=== PATIENT | male | born 1945 | race Caucasian/White ===

== ENCOUNTER → 2024-10-20 | Outpatient (CLI) | payer MEDICARE, SELFPAY ==
[2024-10-20 11:32] LABS: Prostate Specific Antigen 9.61 ng/mL (0-4.00)
== END | disposition home or self-care (01) ==
LOC: COPL 10:07
PROVIDERS: PCP Family Medicine; Referring Provider Urology; Visit Provider Urology
DX: C61 Malignant neoplasm of prostate (principal)
CPT/HCPCS: 36415; 84153

== ENCOUNTER → 2024-10-26 | Outpatient (BNVA) | payer MEDICARE, SELFPAY | END | disposition home or self-care (01) | PROVIDERS: PCP Family Medicine; Referring Provider Family Medicine; Visit Provider Urology | DX: N40.1 Benign prostatic hyperplasia with lower urinary tract symptoms (principal); N13.8 Other obstructive and reflux uropathy; C61 Malignant neoplasm of prostate; I12.9 Hypertensive chronic kidney disease with stage 1 through stage 4 chronic kidney disease, or unspecified chronic kidney disease; E11.22 Type 2 diabetes mellitus with diabetic chronic kidney disease; N18.30 Chronic kidney disease, stage 3 unspecified; I48.91 Unspecified atrial fibrillation; Z80.42 Family history of malignant neoplasm of prostate; E66.9 Obesity, unspecified; Z68.28 Body mass index [BMI] 28.0-28.9, adult; E78.00 Pure hypercholesterolemia, unspecified | CPT/HCPCS: 81003; 99212; G0463 ==

== ENCOUNTER → 2025-04-27 | Outpatient (CLI) | payer MEDICARE, SELFPAY ==
[2025-04-27 11:56] LABS: Prostate Specific Antigen 12.56 ng/mL (0-4.00)
== END | disposition home or self-care (01) ==
LOC: COPL 10:49
PROVIDERS: PCP Family Medicine; Referring Provider Urology; Visit Provider Urology
DX: C61 Malignant neoplasm of prostate (principal)
CPT/HCPCS: 36415; 84153

== ENCOUNTER → 2025-05-21 | Outpatient (BNVA) | payer MEDICARE, SELFPAY | END | disposition home or self-care (01) | PROVIDERS: PCP Family Medicine; Referring Provider Family Medicine; Visit Provider Urology | DX: N40.1 Benign prostatic hyperplasia with lower urinary tract symptoms (principal); N13.8 Other obstructive and reflux uropathy; C61 Malignant neoplasm of prostate; I10 Essential (primary) hypertension; E11.9 Type 2 diabetes mellitus without complications; I25.10 Atherosclerotic heart disease of native coronary artery without angina pectoris; Z80.42 Family history of malignant neoplasm of prostate; Z86.73 Personal history of transient ischemic attack (TIA), and cerebral infarction without residual deficits | CPT/HCPCS: 81003; 99212; G0463 ==

== ENCOUNTER 2025-05-22 05:52 | Emergency (ER) | payer MEDICARE, SELFPAY ==
[2025-05-22] VITALS (7 sets, daily range): BP systolic 126–177; BP diastolic 63–90; PULSE 74–100; RESP 19–96; TEMP 36.4–36.7; O2SAT 95–98; BMI 29.7; BMI 29.0
--- NOTE | 2025-05-22 06:39 | PD.EDWEAK ---
ED Weakness RME/HPI General Chief complaint: Weakness Stated complaint: WEAKNESS Time Seen by Provider: 05/22/25 06:29 Arrival date/time: 05/22/25 05:52 RME / HPI RME / HPI Narrative: DR. NELSON MAIN ED EVALUATION: 79 y/o male with Hx of TIA, Prostate CA, BPH, Type II DM, Atrial fibrilation, HTN, and Hypercholesterolemia presents to ED c/o weakness, balance issues, and difficulty finding his words s/p waking up at 0300 hours. States he feels foggy. Denies chest pain, shortness of breath, abdominal pain, dysuria, hematuria, bloody or tarry stool. Also denies any recent travel or sick contacts. Denies allergies to medications. Patient is taking Warfarin, Amlodipine, Tramadol, and Cialis. Denies any surgical history, but states that he will be undergoing prostectomy at some point later this year. No otgher concerns or complaints expressed at this time. Related Data Home Medications ?Medication ?Instructions ?Recorded ?Confirmed metformin 500 mg tablet 500 mg PO BID 08/29/18 05/21/25 levothyroxine 25 mcg capsule 25 mcg PO QDAY 07/16/19 05/21/25 lisinopril 20 mg tablet 20 mg PO QDAY 07/16/19 05/21/25 tamsulosin 0.4 mg capsule 0.4 mg PO QHS 11/01/20 05/21/25 amiodarone 200 mg tablet 200 mg PO QDAY 04/21/21 05/21/25 tadalafil 5 mg tablet (Cialis) 5 mg PO QDAY 05/08/22 05/21/25 warfarin 5 mg tablet 5 mg PO QMWF 04/05/23 05/21/25 Allergies Allergy/AdvReac Type Severity Reaction Status Date / Time No Known Allergies Allergy Verified 05/21/25 08:56 Review of Systems Review of Systems Systems Reviewed: All systems reviewed, normal except as documented Past Medical History Past Medical History NEUROLOGIC: Positive Neurological Disorders (TIA 2018) and Transient Ischemic Attacks (TIA) CARDIAC: Positive Atrial Fibrillation, Hypercholesterolemia and Hypertension GENITOURINARY: Positive Prostate Cancer and Benign Prostatic Hyperplasia MUSCULOSKELETAL: Positive Arthritis (Both feet) ENDOCRINE: Positive Endocrine Disorders and Diabetes Mellitus Type 2 OTHER HISTORY: Positive Prostate Cancer Family History FAMILY HISTORY: Positive Family Cardiac Disorders and Family Cancer Social History SMOKING STATUS: Former smoker ED Exam Narrative Physical exam: GEN. APPEARANCE: The patient is alert awake oriented X-3 in no distress, lying down comfortably, does not look ill/toxic. Patient has good eye contact. Patient is cooperative. VITALS: All vitals were reviewed and the pulse ox is 98% on room air which is normal according to my interpretation. HEENT: Normocephalic, atraumatic. Pupils are equal and reactive. Oral mucosa is moist. Patent Nares NECK: Supple, nontender, no thyromegaly, no meningismus, no JVD CHEST: Symmetrical, atraumatic, and with equal expansion , Nontender on palpation no deformity and no crepitus. CARDIOVASCULAR: Heart regular rhythm no murmur or gallop rub or extra beats. LUNGS: Clear to auscultation bilaterally with symmetrical chest rise. No laboring tachypnea or wheezing. No intercostal subcostal retraction. No rales and no rhonchi. ABDOMEN: Soft, flat, nontender to palpation, no guarding or rebound tenderness. There are no abnormal masses palpated. Active and normal bowel sounds. EXTREMITIES: Nontender. No edema. No cyanosis. Patient is able to move all 4 extremities well, with full ROM and good CSM. SKIN: Warm and dry, no jaundice or rashes noted. NEURO: Patient is BEAL x 4, Cranial nerves II through XII grossly intact. There is no focal neurologic deficits noted. GCS is 15, PNS and WAIST PRESSER appear grossly intact. PSYCHIATRIC: Patient is in normal mood and affect. Course Quality Measures Suspected type of Stroke: Unknown at this time Last known well (date): 05/22/25 Last know well: unknown (Yesterday evening) Tenecteplase given: Reason(s) TPA not given: Outside the time window not given stroke Orders Category Date Time Status Bedside Blood Glucose NOW Care 05/22/25 06:40 Active Bedside COVID-19 Antigen Test NOW Care 05/22/25 06:41 Active Bedside Influenza A&B Antigen Test NOW Care 05/22/25 06:41 Completed Vision Specialist NOW Care 05/22/25 06:40 Active Continuous Pulse Oximetry NOW Care 05/22/25 06:40 Completed EKG (ED ONLY) *Do not use* NOW Care 05/22/25 06:40 Completed Head [HOB Elevated] .PRN Care 05/22/25 07:04 Active In and Out Catheter NEEDED Care 05/22/25 06:40 Active Insert IV NOW Care 05/22/25 06:40 Completed NIH Stroke Scale now Care 05/22/25 06:40 Active NPO NOW Care 05/22/25 06:40 Active Nurse Swallow Screen x1 Care 05/22/25 06:40 Active Consult to Neurology / Tele-Neurology Stat Cons 05/22/25 06:40 Active Referral - Rn [facility] Stat Cons 05/22/25 07:[address] angio stroke protocol Stat Exams 05/22/25 06:[address] stroke protocol Stat Exams 05/22/25 06:40 Completed EKG (ED Only) Stat Exams 05/22/25 06:40 Draft XR chest 1V portable Stat Exams 05/22/25 06:40 Completed CBC Stat Lab 05/22/25 06:30 Completed CK [Creatine Kinase] Stat Lab 05/22/25 06:30 Completed Comprehensive Metabolic Panel Stat Lab 05/22/25 06:30 Completed Drug Screen,Urine Stat Lab 05/22/25 06:40 Ordered Magnesium Stat Lab 05/22/25 06:30 Completed Partial Thromboplastin Time Stat Lab 05/22/25 06:30 Received Prothrombin Time with INR Stat Lab 05/22/25 06:30 Received Troponin I Stat Lab 05/22/25 06:30 Completed Urinalysis, C/S if Indicated Stat Lab 05/22/25 06:40 Ordered Nicardipine/Ns 20Mg Ivpb [Cardene Ivpb] Med 05/22/25 07:07 Active 20 mg in 200 ml IV 5 mg/hr Phytonadione Inj [Vitamin K Inj] Med 05/22/25 07:05 Discontinued 10 mg IM X1 ONE Phytonadione Inj [Vitamin K Inj] 10 mg Med 05/22/25 07:15 Discontinued Sodium Chloride 0.9% [Ns] 50 ml IV X1 Prothrombin Complex Concent [Kcentra IV] 2,000 unit Med 05/22/25 07:30 Active Sterile Water 100 ml Container,Empty 150 ml [Empty Container Bag 150 ml] 1 bag IV X1 Tranexamic Acid 1,000 mg Ivpb [Tranexamic Acid Ivpb] Med 05/22/25 07:15 Discontinued 1,000 mg in 100 ml IV X1 Tranexamic Acid Inj Med 05/22/25 07:09 Discontinued 1 mg IV STAT STA Oxygen Delivery NOW RT 05/22/25 06:40 Active Vital Signs Vital signs: Vital Signs Temperature 97.5 F 05/22/25 05:55 Pulse Rate 89 05/22/25 05:55 Respiratory Rate 19 05/22/25 05:55 Blood Pressure 164/84 H 05/22/25 05:55 Pulse Oximetry (%) 96 05/22/25 05:55 Oxygen Delivery Method Room Air 05/22/25 05:55 Weakness MDM Narrative MDM Narrative:: Scribe Attestation: I, Sofía Dunn, am scribing for and in the presence of Dr. Nelson. Provider Notation: Although this document has been carefully reviewed, there may still be some phonetic and other typographical errors. These errors are purely grammatical due to imperfections in the software program and should not be construed in any way to compromise the substance of the patient's medical care during this visit. Patient is a 71-year-old male with medical history notable for hypertension, atrial fibrillation, prostate cancer is in the emergency department with concerns for feeling confused, having difficulty finding his words and feeling dizzy and weak. Vital signs and exam as listed. Concern for stroke, last known well last night in the evening approximately 8 PM. Also concern for ACS, arrythmia, metabolic derrangement, among others. Patient was stroke alerted. Was taken to the CT scanner. CT with evidence of basal ganglia hemorrhage approximately 13 mm. Immediately consulted pharmacy for reversal of patient's coagulopathy given that he is on warfarin. Ordered Kcentra, vitamin K, TXA. Ordered medication for blood pressure control, titratable for systolic blood pressure goal of 140. Elevate head of bed. Serial neuroexams. Patient continues to be GCS 15, with no changes to his neuroexam will initiate transfer for higher level of care. Discussed case with [facility] neurosurgeon Dr. Luz, no emergent neurosurgical need at this time. Recommends that we discussed case with ICU and neurology. Discussed case with Dr. Gonzalez, agrees with management, accepts patient for transfer ED to ED. Updated patient and his , in agreement treatment plan, grateful for today's care. I spent 60 minutes of critical care time with this patient not including reportable procedures. There was an acute impairment of an organ system with a high probability of imminent or life threatening deterioration in the patient's condition. Interventions and changes required in the course of therapy are located in the chart. Time involved was spent in direct patient care, reviewing ancillary data, old records, consulting with decision makers, EMS, other doctors, giving orders and documenting. Patient data External records reviewed:: [facility] previous records (Reviewed most recent ED records from 01/26/22. Patient was seen for Rupture of left tympanic membrane.) Clinical information provided by:: patient Social determinants that could affect healthcare access:: none Patient has the following chronic illnesses:: Atrial Fibrillation, Hypercholesterolemia, Hypertension, Prostate Cancer and Benign Prostatic Hyperplasia, Arthritis, Diabetes Mellitus Type 2 How is presenting disease/condition affected by chronic disease/condition?: exacerbated by Evaluation data The following diagnostics were reviewed and interpreted by me:: lab results, radiology exam(s) and EKG tracing(s) (EKG done at 0715, 91 bpm, atrial fibrillation, normal QT, non-specific T-wave changes, not a cardiac alert. - Interpreted by Dr. Roxana Nelson.) Lab and/or radiology exams considered but not ordered:: None Interpretation Summary: RADIOLOGY Head/Brain CT: Findings: 13 mm acute hemorrhage in the left basal ganglia. Ventricles are not enlarged. No midline shift. Fourth ventricle midline. Cranial vault intact Impression: 13 mm acute hemorrhage left basal ganglia Chest X-Ray: Findings: Mild to moderate enlargement left ventricle. Mild elevation right hemidiaphragm. No pneumonia or pulmonary edema. Prominent osteopenia Impression: No pneumonia or pulmonary edema Medications / Prescriptions Medications or Prescriptions considered but not ordered:: None Medication administrations:: Medication Administration History Nicardipine/Sodium Chloride (Cardene Ivpb) 20 mg in 200 mls @ 50 mls/hr IV .Q4H PRN; Protocol PRN Reason: PER PROTOCOL Stop: 06/21/25 07:06 Last Admin: 05/22/25 07:24 Dose: 5 mg/hr, 50 mls/hr Documented By: VL Prothrombin Complex Concent ( Human) 2,000 unit/ Sterile Water 100 ml/ IV Miscellaneous Supplies 100 mls @ 400 mls/hr IV X1 ONE Stop: 05/22/25 07:44 Discontinued Medications Phytonadione 10 mg/ Sodium (Chloride) 51 mls @ 153 mls/hr IV X1 ONE; Protocol Stop: 05/22/25 07:34 Last Admin: 05/22/25 07:36 Dose: 153 mls/hr Documented By: VL Tranexamic Acid (Tranexamic Acid Ivpb) 1,000 mg in 100 mls @ 400 mls/hr IV X1 ONE Stop: 05/22/25 07:29 Last Admin: 05/22/25 07:32 Dose: 400 mls/hr Documented By: VL Phytonadione (Phytonadione Inj 10 Mg/Ml Amp) 10 mg IM X1 ONE Stop: 05/22/25 07:06 Tranexamic Acid (Tranexamic Acid Inj 1,000 Mg/10 Ml Vial) 1 mg IV STAT STA Stop: 05/22/25 07:10 See above if any. Consultations Consultation(s) initiated? (list below): Yes Consultation #1 (Physician, Specialty, Details): made aware of the patient?s HPI, PMHx, lab and/or radiology results. Discussed treatment plan. Recommends admission to ICU. We will consult transfer to facility with neurosurgical capabilties. Time: 07:12 Consultation #2 (Physician, Specialty, Details): Dr. Luz, Neurosurgeon at [facility], made aware of the patient?s HPI, PMHx, lab and/or radiology results. Treatment plan was discussed. Dr. Luz does not believe patient needs emergent neurological intervention, but recommends we speak with ICU at [facility]. We will be connected with Neurology. Dr. Gonzalez, neurology specialist, will accept patient at [facility] for transfer, ED to ED. Time: 07:25 Diagnosis Weakness Differential Diagnosis: acute myocardial infarction, anemia, hypoglycemia, hypothyroidism, rhabdomyolysis, sepsis, dehydration and other (TIA, CVA) Most likely diagnosis given after review of the tests above:: Intracranial hemorrhage Admission Indicated Admission indicated?: not indicated Explain why admission is indicated or not indicated:: Transfer to facility with neurosurgical capabilities. Admission Request Was there a request for admission?: No Disposition Plan Disposition Plan: Transfer Discharge Plan Plan Patient Disposition: [facility] Care [facility] Facility Pt Being Transferred to: [facility] Service Needed for Transfer: Neurology Patient condition on transfer: Stable Prescriptions/Referrals Prescriptions/Med Rec: No Action amiodarone 200 mg tablet 200 mg PO QDAY warfarin 5 mg tablet 5 mg PO QMWF lisinopril 20 mg tablet 20 mg PO QDAY levothyroxine 25 mcg capsule 25 mcg PO QDAY tamsulosin 0.4 mg capsule 0.4 mg PO QHS tadalafil [Cialis] 5 mg tablet 5 mg PO QDAY metformin 500 mg Tablet 500 mg PO BID Problem List Clinical Impression: Intracranial hemorrhage Patient/Caregiver Discharge Instructions Print Language: Divehi Stand Alone Forms: [facility]va Award Info., Patient Portal Info Letter
--- NOTE | 2025-05-22 06:40 | XR_ITS ---
Examination: CT brain head without contrast. 2-D sagittal coronal reconstructions Date and time of exam:May 22 thousand 25, 0700 hrs. Indications: Stroke alert, onset focal neurologic deficit including bilaterally leg weakness beginning 3 hours ago CTDI: vol (mGy):53.1 DLP: (mGycm):1075 Technique: Multiple CT axial sections of the brain have been obtained, 5 mm slice thickness. Contrast has not been administered. 2-D sagittal, coronal reconstructions have been obtained Low dose protocols were performed. One or more of the following dose reduction techniques were used; automated exposure control, adjustment of the mA and/or KV according to patient size, use of iterative reconstruction technique. Findings: 13 mm acute hemorrhage in the left basal ganglia. Ventricles are not enlarged. No midline shift. Fourth ventricle midline. Cranial vault intact Impression: 13 mm acute hemorrhage left basal ganglia
--- NOTE | 2025-05-22 06:40 | XR_ITS ---
Examination: AP chest single view Technique one AP portable upright chest single view Date and time: May 22, 2025 0645 hrs. Indications: Chest pain Breath today. Findings: Mild to moderate enlargement left ventricle. Mild elevation right hemidiaphragm. No pneumonia or pulmonary edema. Prominent osteopenia Impression: No pneumonia or pulmonary edema
--- NOTE | 2025-05-22 06:40 | EKG_ITS ---
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: : 1945 Requested By: Roxana Turk Order Number: [id number] Reading MD: Roxana Turk Measurements Intervals [place] Rate: 91 P: 37 LA: 229 QRS: -51 QRSD: 116 T: 92 QT: 361 QTc: 446 Interpretive Statements SINUS RHYTHM WITH FIRST DEGREE AV BLOCK LEFT ANTERIOR FASCICULAR BLOCK [QRS AXIS <= -45, QR IN I, RS IN II] VOLTAGE CRITERIA FOR LVH [MEETS CRITERIA IN ONE OF: R(aVL), S(V1), R(V5), R(V5/V6)+S(V1)] POSSIBLE ANTEROSEPTAL MYOCARDIAL INFARCTION , OF INDETERMINATE AGE [30 ms Q WAVE IN V1-V4] MODERATE T-WAVE ABNORMALITY, CONSIDER LATERAL ISCHEMIA [-0.1+ mV T-WAVE IN I/aVL/V5/V6] Compared to ECG 08/30/2018 14:23:26 First degree AV block now present Left anterior fascicular block now present Atrial fibrillation no longer present Left-axis deviation no longer present Myocardial infarct finding still present T-wave abnormality still present Possible ischemia still present /store/S0/[id number]/ecg/[id number].pdf
[2025-05-22 07:07] LABS: Basophils # (Auto) 0.1 Thou/mm3 (0.0-0.2); Basophils % (Auto) 1 % (0-2.5); Eosinophils # (Auto) 0.3 Thou/mm3 (0.0-0.5); Eosinophils % (Auto) 3 % (0-10); Hematocrit 45.8 % (41.0-53.0); Hemoglobin 15.3 g/dL (13.5-16.0); Immature Granulocytes Auto 0.03 Thou/mm3 (0.00-0.00); Lymphocytes # (Auto) 1.6 Thou/mm3 (1.0-4.8); Lymphocytes % (Auto) 17 % (10-50); Mean Corpuscular HGB Conc 33.4 g/dl (31.0-37.0); Mean Corpuscular Hemoglobin 27.7 pg (25.0-35.0); Mean Corpuscular Volume 83 fL (80-100); Monocytes # (Auto) 0.8 Thou/mm3 (0.0-0.8); Monocytes % (Auto) 8 % (0-12); Neutrophils # (Auto) 7.0 Thou/mm3 (1.8-7.7); Neutrophils % (Auto) 72 % (37-80); Nucleated Red Blood Cell # 0.00 Thou/mm3 (0.00-0.00); Nucleated Red Blood Cell % 0 /100 WBC (0); Platelet Count 291 Thou/mm3 (140-440); RDW Standard Deviation 43.6 fL (35.1-43.9); Red Blood Count 5.52 Miln/mm3 (4.50-5.90); White Blood Count 9.8 Thou/mm3 (3.8-10.6)
--- NOTE | 2025-05-22 07:15 | ESCONSULT_ITS ---
Tele Neuro Consultation Consultation Date 05/22/25 Most Recent Vital Signs Last Vital Signs Temp 97.5 F 05/22/25 05:55 Pulse 86 05/22/25 07:11 Resp 22 H 05/22/25 07:11 BP 177/86 H 05/22/25 07:11 Pulse Ox 98 05/22/25 07:11 O2 Del Method Room Air 05/22/25 07:11 Consultation Narrative [facility] Patient Name:???Gabe Palafox Date of :???1945 Identification Number:??? Date of Service:???05/22/2025 06:51:02 Diagnosis:?I61.9 - Intracerebral haemorrhage, unspecified Impression: 79 y/o man with h/o BPH, HTN, atrial fibrillation (on Coumadin), DM who presents to the ED with right sided weakness. ICH on CT. Pending transfer Recommendation: Diagnostic Studies: ?CTA head and neck with contrast Laboratory Studies:? INR/PT ? aPTT? CBC Medications:? Hold?antiplatelet?therapy/NSAIDS/Anticoagulation ? Warfarin/Coumadin/DOAC reversal per hospital protocol Nursing Recommendations: ? Telemetry, IV Fluids?Avoid dextrose containing fluids, Maintain euglycemia ? Head of bed 30 degrees ? keep BP less than 140/90's with goal of 130/80s Consultations: ? Need Neurosurgery consultation?STAT ? Recommend Speech therapy if failed dysphagia screen ? Physical therapy/Occupational therapy DVT Prophylaxis: ? SCDs Additional Recommendation: ICU admission for close neurologic observation (Q1H neurochecks) Repeat CT brain in 6 hours Keep normotensive Reverse coagulopathy if present STAT Neurosurgery consult Inpatient neurology consult Metrics: Last Known Well: 05/21/2025 21:00:00 Dispatch Time: 05/22/2025 06:51:02 Arrival Time: 05/22/2025 05:52:00 Initial Response Time: 05/22/2025 07:00:01Symptoms: right sided weakness. Initial patient interaction: 05/22/2025 07:06:14 NIHSS Assessment Completed: 05/22/2025 07:10:44Patient is not a candidate for Thrombolytic. Thrombolytic Medical Decision: 05/22/2025 07:10:45Patient was not deemed candidate for Thrombolytic because of following reasons: LKW outside 4.5 hr window. . History of previous intracranial hemorrhage, intracranial neoplasm . CT Head: I personally reviewed all the CT images that were available to me and it showed: left basal ganglia ICH Primary Provider Notified of Diagnostic Impression and Management Plan on: 05/22/2025 07:12:04 History of Present Illness:Patient is a 79 year old Male. Patient was brought by EMS for symptoms of right sided weakness. 79 y/o man with h/o BPH, HTN, atrial fibrillation (on Coumadin), DM who presents to the ED with right sided weakness. Emergent telestroke consult requested. Patient woke up 0330 with the symptoms. Last known well at 2100 as per the pat ient. CT brain reviewed and case discussed with the ED attending (Dr. Dominique) at the bedside. Medications: Anticoagulant use:??Yes?Warfarin No Antiplatelet use Reviewed EMR for current medications Allergies:? NKDA Social History: Smoking: No Alcohol Use: No Drug Use: No Family History: There is no family history of premature cerebrovascular disease pertinent to this consultation ROS : 14 Points Review of Systems was performed and was negative except mentioned in HPI. Past Surgical History: There Is No Surgical History Contributory To Today?s Visit Examination: BP(178/86),?Pulse(88),?Blood Glucose(175) 1A: Level of Consciousness - Alert; keenly responsive?+ 0 1B: Ask Month and Age - Both Questions Right?+ 0 1C: Blink Eyes & Squeeze Hands - Performs Both Tasks?+ 0 2: Test Horizontal Extraocular Movements - Normal?+ 0 3: Test Visual Mcallister - No Visual Loss?+ 0 4: Test Facial Palsy (Use Grimace if Obtunded) - Minor paralysis (flat nasolabial fold, smile asymmetry)?+ 1 5A: Test Left Arm Motor Drift - No Drift for 10 Seconds?+ 0 5B: Test Right Arm Motor Drift - Drift, but doesn't hit bed?+ 1 6A: Test Left Leg Motor Drift - No Drift for 5 Seconds?+ 0 6B: Test Right Leg Motor Drift - No Drift for 5 Seconds?+ 0 7: Test Limb Ataxia (FNF/Heel-Blackwell) - No Ataxia?+ 0 8: Test Sensation - Mild-Moderate Loss: Less Sharp/More Dull?+ 1 9: Test Language/Aphasia - Normal; No aphasia?+ 0 10: Test Dysarthria - Mild-Moderate Dysarthria: Slurring but can be understood?+ 1 11: Test Extinction/Inattention - No abnormality?+ 0 NIHSS Score:?4 ICH Score: 0 Mathieu Coma Score:13-15 (0) Age >= 80:No (0) ICH volume >= 30mL:No (0) Intraventricular hemorrhage:No (0) Infratentorial origin of hemorrhage:No (0) Pre-Morbid Modified Mary Ann Scale: 0 Points = No symptoms at all This consult was conducted in real time using interactive audio and video technology. Patient was informed of the technology being used for this visit and agreed to proceed. Patient located in hospital and provider located at home/office setting. Due to the immediate potential for life-threatening deterioration due to underlying acute neurologic illness, I spent 20 minutes providing critical care. This time includes time for face to face visit via telemedicine, review of medical records, imaging studies and discussion of findings with providers, the patient and/or family. Dr Cr Troncoso [facility] For Inpatient follow-up with [facility] physician please call [facility] at . As we are not an outpatient service for any post hospital discharge needs please contact the hospital for assistance. If you have any questions for the [facility] physicians or need to reconsult for clinical or diagnostic changes please contact us via [facility] at [phone]. Signature :Asia Troncoso
[2025-05-22] MEDS: NICARDIPINE/NS 20MG IVPB 20 MG/200 ML BAG 50 MG IV (07:24)
[2025-05-22 07:26] LABS: Alanine Aminotransferase 11 U/L (10-49); Albumin, Serum 4.5 gm/dL (3.4-4.8); Albumin/Globulin Ratio 1.7 (1.2-2.2); Alkaline Phosphatase 62 U/L (46-116); Anion Gap 11 (7-16); Aspartate Amino Transferase 15 U/L (0-34); BUN/Creatinine Ratio 12 Ratio (12-20); Bilirubin,Total 0.5 mg/dL (0.3-1.2); Blood Urea Nitrogen 15 mg/dL (9-23); Calcium 9.7 mg/dL (8.3-10.6); Calcium (Corrected) 9.7 mg/dL (8.5-10.1); Carbon Dioxide 22.6 mMol/L (20.0-31.0); Chloride 107 mMol/L (98-107); Creatine Kinase 93 U/L (34-171); Creatinine (Component) 1.3 mg/dL (0.6-1.3); Estimated Creatinine Clearance 58.2 mL/min (>60); Globulin 2.6 gm/dL (2.3-3.5); Glucose 176 mg/dL (74-106); Magnesium 1.8 mg/dL (1.6-2.6); Osmolality,Calculated 286 (275-295); Potassium 3.9 mMol/L (3.4-5.1); Sodium 141 mMol/L (136-145); Total Protein 7.1 gm/dL (5.7-8.2); Troponin I < 0.020 ng/mL (0.0-0.045); eGFR 56 See Note
[2025-05-22] MEDS: TRANEXAMIC ACID 1,000 MG IVPB 1,000 MG/100 ML BAG 400 MG IV (07:32)
[2025-05-22 07:36] LABS: INR 3.5 (0.9-1.3); Partial Thromboplastin Time 53.2 Seconds (22.0-36.0)
[2025-05-22] MEDS: PHYTONADIONE INJ 10 MG in SODIUM CHLORIDE 0.9% 50 ML 153 MG IV (07:36)
[2025-05-22 07:47] LABS: Prothrombin Time 35.0 Seconds (9.0-12.2)
--- NOTE | 2025-05-22 07:47 | PC.CM ---
0740 Dr. Dominique spoke to Dr. Benavidez at [facility] and she accepted patient to the ED. Patient has a nicardipine drip and needs a nurse to ride along. ED has an extra nurse so I will set up transport with [facility]. 0715 I contacted [facility] transfer center and I spoke to Mae to initiate transfer. I started packet and made a CD. 0710 I received a referral to transfer for brain bleed.
--- NOTE | 2025-05-22 07:56 | PC.NURSE ---
Dr. Dominique made aware that patient is maxed out on nicardipine drip per protocol, and blood pressure is currently 146/72, heart rate 100. Per md she will start patient on second medication to maintain sbp goal <140. Patient and at bedside made aware of plan of care. Patient and in agreement with plan of care.
[2025-05-22] MEDS: STERILE WATER IV (08:00)
[2025-05-22] MEDS: [UNRECOGNIZED DRUG - OTHER] IV (08:00)
[2025-05-22] MEDS: PROTHROMBIN COMPLEX CONCENT IV (08:00)
--- NOTE | 2025-05-22 08:30 | PC.NURSE ---
Dr. Dominique was made aware that patient's blood pressure has stayed between 120s and 130s systolic. Per MD do not give labetolol and emotolol medication that was ordered. Report was called to [facility] ED. Spoke to Osmar Wilkerson at [facility] ED. No further questions. Patent sent to [facility] as transfer for hemorrhagic stroke. OSMAR Monroy sent with patient due to patient needing nicardipine drip. Nicardipine drip was decreased to 3mg/hr.
== END 2025-05-22 08:31 | disposition short-term general hospital (02) ==
LOC: SERX 08:02
PROVIDERS: Emergency Provider Emergency Medicine; PCP Family Medicine
DX: I61.0 Nontraumatic intracerebral hemorrhage in hemisphere, subcortical (principal); R53.1 Weakness; R29.704 NIHSS score 4; N40.0 Benign prostatic hyperplasia without lower urinary tract symptoms; C61 Malignant neoplasm of prostate; I10 Essential (primary) hypertension; E78.00 Pure hypercholesterolemia, unspecified; E11.9 Type 2 diabetes mellitus without complications; I48.91 Unspecified atrial fibrillation; Z79.84 Long term (current) use of oral hypoglycemic drugs; Z87.891 Personal history of nicotine dependence
CPT/HCPCS: 36415; 70450; 71045; 80053; 80307; 81001; 82550; 83735; 84484; 85025; 85610; 85730; 87400; 87811; 93005; 96365; 99284; A4216; J2404; J3430; J3490; J7168

== ENCOUNTER 2025-05-25 22:41 | Inpatient (IN) | payer MEDICARE, SELFPAY ==
[2025-05-25 22:51] VITALS: BP 126/66; PULSE 88; RESP 19; TEMP 36.9; O2SAT 98
--- NOTE | 2025-05-25 22:57 | EDNOTE_ITS ---
Nausea/Vomit./Diarrhea-RME/HPI General Chief complaint: Abdominal Pain Stated complaint: N/V Time Seen by Provider: 05/25/25 23:41 Arrival date/time: 05/25/25 22:41 RME / HPI RME / HPI Narrative: See MDM for Dr. Ruth's HPI documentation. Related Data Home Medications ?Medication ?Instructions ?Recorded ?Confirmed metformin 500 mg tablet 500 mg PO BID 08/29/1805/21 levothyroxine 25 mcg capsule 25 mcg PO QDAY 07/16/19 0 05/21/25 lisinopril 20 mg tablet 20 mg PO QDAY 07/16/1905/21 tamsulosin 0.4 mg capsule 0.4 mg PO QHS 11/01/2005/21 amiodarone 200 mg tablet 200 mg PO QDAY 04/21/2102/07 tadalafil 5 mg tablet (Cialis) 5 mg PO QDAY 05/08/22 0 05/21/25 warfarin 5 mg tablet 5 mg PO QMWF 04/05/23 Allergies Allergy/AdvReac Type Severity Reaction Status Date / Time No Known Allergies Allergy Verified 05/21/25 08:56 Review of Systems Review of Systems Systems Reviewed: All systems reviewed, normal except as documented Past Medical History Past Medical History NEUROLOGIC: Positive Neurological Disorders (TIA 2018) and Transient Ischemic Attacks (TIA) CARDIAC: Positive Cardiac Disorders, Atrial Fibrillation, Hypercholesterolemia and Hypertension; Negative Congestive Heart Failure RESPIRATORY: Negative Chronic Obstructive Pulmonary Disease (COPD) GASTROINTESTINAL: Negative Gastrointestinal Disorders or Hepatitis GENITOURINARY: Positive Prostate Cancer and Benign Prostatic Hyperplasia; Negative Genitourinary Disorders or Renal Disease MUSCULOSKELETAL: Positive Arthritis (Both feet); Negative Musculoskeletal Disorders ENDOCRINE: Positive Endocrine Disorders and Diabetes Mellitus Type 2; Negative Diabetes Mellitus Type 1 HEMATOLOGIC: Negative Blood Disorders OTHER HISTORY: Positive Prostate Cancer; Negative Hospitalization, Autoimmune Disease, Down Syndrome, Developmental Delay, Falls, Blood Transfusions, Anesthesia Reactions, MRSA, VRSA, Vancomycin- Resistant Enterococci, Human Immunodeficiency Virus (HIV), Chicken Pox, Measles, Mumps, Rubella (Syriac Measles), Pertussis or Clostridium Difficile Family History FAMILY HISTORY: Positive Family Cardiac Disorders and Family Cancer; Negative Family Psychiatric Problems, Family Respiratory Disorders, Family Gastrointestinal Problems, Family Surgery or Family Anesthesia Reaction Social History SMOKING STATUS: Former smoker ED Exam Narrative Physical exam: See MDM for Dr. Ruth's physical exam documentation. Course Course Course Narrative: 0024: Sepsis alert initiated. Orders made at this time are congruent with ED Adult Sepsis Order List. Re-evaluation is to be completed. 0050: NS IVF infused. 0120: Sepsis reassessment performed consisting of lab review, vitals, physical exam including auscultation of heart, lungs, and visual evaluation of capillary refills, mucosal membranes and extremities. Patient met SIRS criteria however lactic and WBC are all above normal range. Reassessment complete, patient is septic. Quality Measures none Orders Category Date Time Status Admit to Inpatient Status Routine Admission 05/26/25 03:33 Active Patient Condition Routine Admission 05/26/25 03:33 Ordered Bedside Blood Glucose ACHS Care 05/26/25 03:39 Active Bedside COVID-19 Antigen Test NOW Care 05/25/25 23:02 Active Bedside Influenza A&B Antigen Test NOW Care 05/25/25 23:[address] Screening NOW Care 05/25/25 23:05 Active EKG (ED ONLY) *Do not use* NOW Care 05/25/25 23:04 Completed Insert NG / OG tube NOW Care 05/26/25 03:33 Active NPO NOW Care 05/26/25 03:34 Active Notify provider NEEDED Care 05/26/25 03:33 Active Obtain weight NOW Care 05/26/25 03:33 Active Saline [Insert IV] NOW Care 05/25/25 23:02 Active Consult to Cardiology Routine Cons 05/26/25 03:40 Ordered Referral Physical Therapy Stat Cons 05/26/25 00:45 Active Diet NPO (NOW) Diet 05/26/25 03:[address] abdomen pelvis w con Stat Exams 05/25/25 23:[address] angio chest Stat Exams 05/25/25 23:[address] head/brain wo con Stat Exams 05/25/25 23:04 Taken EKG (ED Only) Stat Exams 05/25/25 23:04 Draft US venous doppler LE BI Stat Exams 05/26/25 00:31 Taken XR chest 1V portable Stat Exams 05/25/25 23:04 Completed XR small bowel single contrast Stat Exams 05/26/25 03:33 Ordered ABG [Arterial Blood Gas] Stat Lab 05/25/25 23:10 Completed BNP [B-Type Natriuretic Peptide] Stat Lab 05/25/25 23:10 Completed Bilirubin,Direct Stat Lab 05/25/25 23:10 Completed Blood Culture (Lab) Stat Lab 05/25/25 23:36 Received CBC AM DRAW Lab 05/26/25 05:00 Ordered CBC AM DRAW Lab 05/27/25 05:00 Ordered CBC AM DRAW Lab 05/28/25 05:00 Ordered CBC AM DRAW Lab 05/29/25 05:00 Ordered CBC Stat Lab 05/25/25 23:10 Completed CMP [Comprehensive Metabolic Panel] AM DRAW Lab 05/26/25 05:00 Ordered CMP [Comprehensive Metabolic Panel] AM DRAW Lab 05/27/25 05:00 Ordered CMP [Comprehensive Metabolic Panel] AM DRAW Lab 05/28/25 05:00 Ordered CMP [Comprehensive Metabolic Panel] AM DRAW Lab 05/29/25 05:00 Ordered CMP [Comprehensive Metabolic Panel] Stat Lab 05/25/25 23:10 Completed CRP [C-Reactive Protein] Stat Lab 05/25/25 23:10 Completed D-Dimer Stat Lab 05/25/25 23:10 Completed ESR [Sed Rate (ESR)] Stat Lab 05/25/25 23:10 Completed Free T3 Stat Lab 05/26/25 Completed Free T4 (Free Thyroxine) Stat Lab 05/26/25 Completed Lactate (Lactic Acid) Stat Lab 05/25/25 23:10 Completed Lactic Acid, 3 HR Stat Lab 05/26/25 03:25 Completed Lipase Stat Lab 05/25/25 23:10 Completed Magnesium AM DRAW Lab 05/26/25 05:00 Ordered Magnesium AM DRAW Lab 05/27/25 05:00 Ordered Magnesium AM DRAW Lab 05/28/25 05:00 Ordered Magnesium AM DRAW Lab 05/29/25 05:00 Ordered Magnesium Stat Lab 05/25/25 23:10 Completed PT [Prothrombin Time with INR] Stat Lab 05/25/25 23:10 Completed PT [Prothrombin Time with INR] Stat Lab 05/26/25 03:25 Completed PTT [Partial Thromboplastin Time] Stat Lab 05/25/25 23:10 Completed PTT [Partial Thromboplastin Time] Stat Lab 05/26/25 03:25 Completed Phosphorous AM DRAW Lab 05/26/25 05:00 Ordered Phosphorous AM DRAW Lab 05/27/25 05:00 Ordered Phosphorous AM DRAW Lab 05/28/25 05:00 Ordered Phosphorous AM DRAW Lab 05/29/25 05:00 Ordered Procalcitonin Stat Lab 05/25/25 23:10 Completed TSH [Thyroid Stimulating Hormone] Stat Lab 05/25/25 23:10 Completed Troponin I Stat Lab 05/25/25 23:10 Completed UA, C/S IF [Urinalysis, C/S if Indicated] Stat Lab 05/26/25 00:30 Completed Acetaminophen Tab [Tylenol Tab] Med 05/26/25 03:33 Active 650 mg NG Q6H PRN Albuterol/Ipratr Rt Stefany [Duoneb Rt Stefany] Med 05/25/25 23:02 Discontinued 3 ml INH X1 ONE Atorvastatin Calcium [Lipitor] Med 05/26/25 21:00 Active 40 mg NG HS Cefepime Inj [Maxipime Inj] 2 gm Med 05/26/25 02:55 Discontinued SODIUM CHLORIDE 0.9% (Popper) [Ns 0.9% (P)] 50 ml IV X1 Dextrose 50% Syr [D50w Syringe Abboject] Med 05/26/25 03:38 Active 25 ml IV Q15MIN PRN Dextrose 50% Syr [D50w Syringe Abboject] Med 05/26/25 03:38 Active 50 ml IV Q15MIN PRN Doxycycline Inj [Vibramycin Inj] 100 mg Med 05/26/25 09:00 Active Sodium Chloride 0.9% (Pop) [NS 0.9% mini bag] 100 ml IV BID Glucagon Inj Med 05/26/25 03:38 Active 1 mg IM Q15MIN PRN INSULIN LISPRO (AdmeLOG) [HumaLOG] Med 05/26/25 07:30 Active See Protocol SC ACHS Labetalol IV [Trandate IV] Med 05/26/25 03:38 Active 10 mg IVP Q2H PRN MethylPREDNISolone.* [SoluMEDROL Inj] Med 05/25/25 23:02 Discontinued 125 mg IVP X1 ONE Morphine* Inj Med 05/26/25 03:33 Active 2 mg IVP Q4HR PRN Ondansetron Inj [Zofran Inj] Med 05/26/25 03:33 Active 4 mg IVP Q6H PRN Ondansetron Inj [Zofran Inj] Med 05/25/25 23:02 Discontinued 4 mg IVP X1 ONE Pantoprazole Inj [Protonix Inj] Med 05/26/25 09:00 Active 40 mg IVP QDAY Piper/Tazo 3.375 gm Premix [Zosyn] Med 05/26/25 03:43 Active 3.375 gm in 50 ml IV Q6HR Sodium Chloride 0.9% 1000 ml [Ns] 1,000 ml Med 05/26/25 03:45 Active IV 80 mls/hr Sodium Chloride 0.9% 1000 ml [Ns] 1,000 ml Med 05/25/25 23:02 Discontinued IV 999 mls/hr Sodium Chloride 0.9% 1000 ml [Ns] 1,000 ml Med 05/26/25 02:55 Discontinued IV 999 mls/hr Vancomycin Inj 2,000 mg Med 05/26/25 02:55 Active Sodium Chloride 0.9% 500 ml [Ns] 500 ml IV X1 amLODIPine BESYLATE [Norvasc] Med 05/26/25 09:00 Active 10 mg PO QDAY cloNIDine HCL [Catapres] Med 05/26/25 01:54 Discontinued 0.2 mg PO X1 ONE Code Status Routine Oth 05/26/25 03:33 Ordered BiPAP / CPAP NOW RT 05/26/25 00:45 Active Oxygen Delivery NOW RT 05/26/25 00:46 Active Vital Signs Vital signs: Vital Signs Temperature 98.5 F 05/25/25 22:51 Pulse Rate 88 05/25/25 22:51 Respiratory Rate 19 05/25/25 22:51 Blood Pressure 126/66 05/25/25 22:51 Pulse Oximetry (%) 98 05/25/25 22:51 Nausea/Vomiting/Diarrhea MDM Narrative MDM Narrative:: This section includes all my notes and documentations, including HPI, PE, and ED course. Bryna Ruth MD HPI: 79yo male BIBA from home with nausea, vomiting, dyspnea, abdominal pain, and generalized weakness that started several hours ago. Patient was discharged earlier today from [facility]. He presented here several days ago. With hemorrhagic CVA, he was transferred to [facility]. He was prescribed labetalol to lower his BP. No other complaints. ROS: All negative except as documented in HPI. Physical Exam: General: Alert and oriented. In respiratory distress. Appears to be in pain. Hypoxia noted. High BP noted. Eyes: Conjunctivae and lids clear. PERRL. EOMI. ENT: No nasal congestion. Pharynx normal. TM normal bilaterally. Neck: Supple. Heart: RRR. Lungs: In respiratory distress. Decreased air movement with wheezing. Abdomen: Soft with diffuse tenderness, difficult to localize. Absent bowel sounds. Positive distension. Equivocal rebound or guarding. Skin: Warm and dry. Neuro: Alert and oriented X 3. Cranial nerves II to XII grossly normal. No peripheral motor deficits. I reviewed EMS notes. I reviewed all diagnostic test results. My interpretation of the EKG is sinus rhythm with nonspecific ST-T changes. My interpretation of the chest x-ray is infiltrates. My review of the bilateral lower extremity US report is no DVT. My review of the CT head report is stable left thalamic hematoma measuring 1.5 x 1 cm. My review of the CT abdomen pelvis report is small bowel obstruction. My review of the CT angio chest report is multifocal pneumonia. Blood tests remarkable for WBC 17.9, ESR 48, D-Dimer 1450, Creatinine 1.7, Glucose 244, Lactic Acid 2.5, CRP 4.2. ABG showed pH 7.44, pCO2 34, pHCO3 23. UA unremarkable. COVID/Influenza negative. At this point, diagnoses include: SBO Hopsital-acquired pneumonia Sepsis Acute respiratory failure with hypoxia Elevated BP Treatment here included: Solumedrol 125 mg IV 3 L IVF Oral clonidine 0.2 mg Duoneb Vancomycin 2 g IV Cefepime 2 g IV Zofran 4 mg IV BiPAP I discussed the case with our hospitalist. About the presentation and exam and diagnostics and treatments here. And need of further care in the hospital. Will accept the patient. Bryan Ruth MD Patient data External records reviewed:: [facility] previous records (Per chart review, patient was seen here on 05/22/25 for ICH and was transferred to [facility].) and EMS form Clinical information provided by:: patient and EMS Social determinants that could affect healthcare access:: none Patient has the following chronic illnesses:: ICH, aFib, HTN, HLD How is presenting disease/condition affected by chronic disease/condition?: uneffected by Evaluation data The following diagnostics were reviewed and interpreted by me:: lab results, radiology exam(s) and EKG tracing(s) (My interpretation of the EKG is: Sinus rhythm (81 bpm) with nonspecific ST-T changes. Bryan Ruth MD) Lab and/or radiology exams considered but not ordered:: none Interpretation Summary: I reviewed all diagnostic test results. My interpretation of the EKG is sinus rhythm with nonspecific ST-T changes. My interpretation of the chest x-ray is infiltrates. My review of the bilateral lower extremity US report is no DVT. My review of the CT head report is stable left thalamic hematoma measuring 1.5 x 1 cm. My review of the CT abdomen pelvis report is small bowel obstruction. My review of the CT angio chest report is multifocal pneumonia. Blood tests remarkable for WBC 17.9, ESR 48, D-Dimer 1450, Creatinine 1.7, Glucose 244, Lactic Acid 2.5, CRP 4.2. ABG showed pH 7.44, pCO2 34, pHCO3 23. UA unremarkable. COVID/Influenza negative. Medications / Prescriptions Medications / Prescriptions considered but not ordered:: none Medication administrations:: Medication Administration History Acetaminophen (Acetaminophen 325 Mg Tablet) 650 mg NG Q6H PRN PRN Reason: Fever >100.4 Stop: 06/25/25 03:32 Amlodipine Besylate (Amlodipine Besylate 5 Mg Tablet) 10 mg PO QDAY MARTHA Stop: 06/25/25 08:59 Atorvastatin Calcium (Atorvastatin Calcium 20 Mg Tablet) 40 mg NG HS MARTHA Stop: 06/25/25 20:59 Dextrose (Dextrose 50%-Water Inj 50 Ml Syringe) 25 ml IV Q15MIN PRN PRN Reason: BG 50-70 responsive npo pt Stop: 06/25/25 03:37 Dextrose (Dextrose 50%-Water Inj 50 Ml Syringe) 50 ml IV Q15MIN PRN PRN Reason: BG <50 OR BG <70 & pt unresponsive Stop: 06/25/25 03:37 Glucagon (Glucagon Inj 1 Mg Vial) 1 mg IM Q15MIN PRN PRN Reason: BG <70, and no IV access Vancomycin HCl 2,000 mg/ (Sodium Chloride) 500 mls @ 150 mls/hr IV X1 ONE Stop: 05/26/25 06:14 Sodium Chloride (Ns) 1,000 mls @ 80 mls/hr IV .[id number] MARTHA Stop: 05/26/25 16:14 Piperacillin/Tazobactam/Dextrose (Zosyn) 3.375 gm in 50 mls @ 12.5 mls/hr IV Q6HR MARTHA; Protocol Stop: 06/02/25 03:42 Doxycycline Hyclate 100 mg/ (Sodium Chloride) 100 mls @ 100 mls/hr IV BID [facility] Stop: 06/02/25 08:59 Insulin Human Lispro (Insulin Lispro (Admelog) 1 Unit/0.01 Ml Unit) 0 unit SC ACHS [facility]; Protocol Stop: 06/25/25 07:29 Labetalol HCl (Labetalol Inj 5 Mg/Ml Vial 20 Ml) 10 mg IVP Q2H PRN PRN Reason: SBP>140 Stop: 06/25/25 03:37 Morphine Sulfate (Morphine Sulf Inj 4 Mg/Ml Vial) 2 mg IVP Q4HR PRN PRN Reason: Pain 4-10 Stop: 05/31/25 03:32 Ondansetron HCl (Ondansetron Inj 2 Mg/Ml Inj 2 Ml) 4 mg IVP Q6H PRN; Protocol PRN Reason: NAUSEA OR VOMITING Stop: 06/25/25 03:32 Pantoprazole Sodium (Pantoprazole Inj 40 Mg Vial) 40 mg IVP QDAY [facility] Stop: 06/25/25 08:59 Discontinued Medications Albuterol/Ipratropium (Albuterol/Ipratropium (Duoneb) Rt Stefany 3 Ml Nebu) 3 ml INH X1 ONE Stop: 05/25/25 23:03 Last Admin: 05/25/25 23:15 Dose: 3 ml Documented By: ZANA Clonidine (Clonidine Hcl 0.1 Mg Tablet) 0.2 mg PO X1 ONE Stop: 05/26/25 01:55 Last Admin: 05/26/25 01:59 Dose: 0.2 mg Documented By: COLLINS Sodium Chloride (Ns) 1,000 mls @ 999 mls/hr IV .Q1H1M ONE Stop: 05/26/25 00:02 Last Infusion: 05/26/25 00:50 Dose: Infused Documented By: Admin: 05/25/25 23:33 Dose: 999 mls/hr Documented By: JO Cefepime HCl 2 gm/ Sodium (Chloride) 50 mls @ 100 mls/hr IV X1 ONE Stop: 05/26/25 03:24 Last Admin: 05/26/25 03:49 Dose: 100 mls/hr Documented By: COLLINS Sodium Chloride (Ns) 1,000 mls @ 999 mls/hr IV .Q1H1M ONE Stop: 05/26/25 03:55 Last Admin: 05/26/25 03:49 Dose: 999 mls/hr Documented By: COLLINS Methylprednisolone Sodium Succinate (Methylprednisolone Sod Succ 62.5 Mg/Ml 2ml Vial) 125 mg IVP X1 ONE Stop: 05/25/25 23:03 Last Admin: 05/25/25 23:33 Dose: 125 mg Documented By: JO Ondansetron HCl (Ondansetron Inj 2 Mg/Ml Inj 2 Ml) 4 mg IVP X1 ONE; Protocol Stop: 05/25/25 23:03 Last Admin: 05/25/25 23:32 Dose: Not Given Documented By: COLLINS Non-Admin Reason: Patient Refused Treatment from me here included: Solumedrol 125 mg IV 3 L IVF Oral clonidine 0.2 mg Duoneb Vancomycin 2 g IV Cefepime 2 g IV Zofran 4 mg IV BiPAP Consultations Consultation(s) initiated? (list below): Yes Consultation #1 (Physician, Specialty, Details): I discussed the case with our hospitalist. About the presentation and exam and diagnostics and treatments here. And need of further care in the hospital. Will accept the patient. Diagnosis Nausea Differential Diagnosis: traveler's diarrhea, food poisoning, gastroenteritis, clostridium difficile infection, drug-induced nausea and vomiting, dehydration and other (CVA, [place], CHF, COPD, UTI, pneumonia, COVID, influenza, sepsis, electrolyte normalities) Most likely diagnosis given after review of the tests above:: SBO Hopsital-acquired pneumonia Sepsis Acute respiratory failure with hypoxia Elevated BP Admission Indicated Admission indicated?: indicated Explain why admission is indicated or not indicated:: SBO Hopsital-acquired pneumonia Sepsis Acute respiratory failure with hypoxia Elevated BP Admission Request Was there a request for admission?: Yes Admission Attestation Admission request attestation: Discussed case with Hospitalist service regarding admission. Discussed patients ED course, exam findings, labs, and radiology results. Agreed to accept the patient for admission. Disposition Plan Disposition Plan: Admit Critical Care Time Critical Care Time Critical Care Time: Yes Total Critical Care Time (min.): 45 Attestation: Due to a high probability of clinically significant, life threatening deterioration, the patient required my highest level of preparedness to interve ne emergently and I personally spent this critical care time directly and personally managing the patient. This critical care time included obtaining a history; examining the patient; ordering and review of studies; arranging urgent treatment with development of a management plan; evaluation of patient's response to treatment; frequent reassessment; and discussions with family and other providers. It was exclusive of separately billable procedures and treating other patients and teaching time. Bryan Ruth MD Discharge Plan Plan Patient Disposition: Admit Acute Care w/in Hospital Prescriptions/Referrals Prescriptions/Med Rec: No Action amiodarone 200 mg tablet 200 mg PO QDAY warfarin 5 mg tablet 5 mg PO QMWF lisinopril 20 mg tablet 20 mg PO QDAY levothyroxine 25 mcg capsule 25 mcg PO QDAY tamsulosin 0.4 mg capsule 0.4 mg PO QHS tadalafil [Cialis] 5 mg tablet 5 mg PO QDAY metformin 500 mg Tablet 500 mg PO BID Referrals: Darryn Phelan MD [Primary Care Provider, Family Practice] - In 1 week Problem List Clinical Impression: Acute respiratory failure with hypoxia, Sepsis, Hospital-acquired pneumonia, SBO (small bowel obstruction) Patient/Caregiver Discharge Instructions Print Language: Maltese Stand Alone Forms: [facility]va Award Info., Patient Portal Info Letter
[2025-05-25 23:04] VITALS: PULSE 70; RESP 18; O2SAT 87; BMI 29.0
--- NOTE | 2025-05-25 23:04 | EKG_ITS ---
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: : 1945 Requested By: Bryan Riggins Order Number: [id number] Reading MD: Bryan Riggins Measurements Intervals [place] Rate: 81 P: 43 UT: 205 QRS: -56 QRSD: 122 T: 98 QT: 363 QTc: 423 Interpretive Statements SINUS RHYTHM POSSIBLE RIGHT VENTRICULAR CONDUCTION DELAY [RSR (QR) IN V1/V2] LEFT ANTERIOR FASCICULAR BLOCK [QRS AXIS <= -45, QR IN I, RS IN II] VOLTAGE CRITERIA FOR LVH [MEETS CRITERIA IN ONE OF: R(aVL), S(V1), R(V5), R(V5/V6)+S(V1)] POSSIBLE ANTEROSEPTAL MYOCARDIAL INFARCTION , OF INDETERMINATE AGE [30 ms Q WAVE IN V1-V4] MODERATE T-WAVE ABNORMALITY, CONSIDER LATERAL ISCHEMIA [-0.1+ mV T-WAVE IN I/aVL/V5/V6] Compared to ECG 05/22/2025 07:15:24 First degree AV block no longer present Myocardial infarct finding still present T-wave abnormality still present Possible ischemia still present /store/S0/[id number]/[id number].pdf
--- NOTE | 2025-05-25 23:04 | XR_ITS ---
Examination: CT brain head without contrast. 2-D sagittal coronal reconstructions Date and time of exam:May 26, 2025, 0054 hrs., Comparison 05/22/2025 Indications: History left parietal lobe hemorrhage, stroke CTDI: vol (mGy): 53.9 DLP: (mGycm):1086 Technique: Multiple CT axial sections of the brain have been obtained, 5 mm slice thickness. Contrast has not been administered. 2-D sagittal, coronal reconstructions have been obtained Low dose protocols were performed. One or more of the following dose reduction techniques were used; automated exposure control, adjustment of the mA and/or KV according to patient size, use of iterative reconstruction technique. Findings: No significant ventricular enlargement. Stable 15 x 10 mm left thalamic hemorrhage with surrounding mild edema Tiny old infarcts in the right basal ganglia No mass effect or midline shift Basal cisterns are not remarkable. Fourth ventricle is midline. Cranial vault intact. Impression: Stable 15 mm left thalamic hemorrhage
--- NOTE | 2025-05-25 23:04 | XR_ITS ---
Examination: AP chest single view Technique one AP portable upright chest single view Date and time: May 25, 2025, 11:36 PM, comparison 05/22/2025 Indications: Shortness of breath nausea generalized weakness beginning several hours ago Findings: Mild prominence of ventricle Mild to moderate elevation right hemidiaphragm Subsegmental atelectasis at the right lung base No lobar pneumonia or pulmonary edema Impression: Minor subsegmental atelectasis right base
--- NOTE | 2025-05-25 23:05 | XR_ITS ---
Examination: CT abdomen with intravenous contrast CT pelvis with intravenous contrast 2-D coronal reconstructions 2-D sagittal reconstructions Date and time of exam:May 26, 2025, 0056 hrs., Comparison December 07, 2019 Indications: Shortness of breath hypoxia abdominal pain. CTDI: vol (mGy) 17.9. DLP: (mGycm) 1243. Technique: Multiple axial sections of the abdomen and pelvis have been obtained. 64 slice high-resolution scanner used. 3 mm axial sections have been obtained, post intravenous injection 60 cc Isovue-300. 2-D sagittal, coronal reconstructions obtained. Low dose protocols were performed. One or more of the following dose reduction techniques were used; automated exposure control, adjustment of the mA and/or KV according to patient size, use of iterative reconstruction technique. Findings: Significant bibasilar pneumonia. Focal liver or splenic lesions. No gallstones. No pancreatic mass. Moderate renal scarring with benign left renal cyst. Aorta normal size. Normal appendix. Small bowel obstruction with dilated jejunal and ileal loop Significant prostatomegaly prostate irregular in contour Urinary bladder wall is irregular measuring up to 10 mm Severe osteopenia with chronic wedging L3 Impression: Small bowel obstruction, recommend Gastrografin small bowel series follow-up Significant prostatomegaly with thickening of urinary bladder wall, likely urinary outflow tract obstruction. Significant bibasilar pneumonia.
--- NOTE | 2025-05-25 23:05 | XR_ITS ---
Examination: CTA chest with intravenous contrast 2-D reconstructions 3-D reconstructions, vascular Date and time of exam: May 26, 2025, 0056 hrs. Indications: Nausea vomiting shortness of breath hypoxia chest pain today. CTDI: vol (mGy) 15.1. DLP: (mGycm) 605. Technique: Multiple axial sections of the thorax have been obtained. 3 mm slice thickness, from below the hemidiaphragms to above the apices of the lungs. Mediastinal and lung density settings have been obtained. 2-D sagittal and coronal reconstructions. 3-D angiographic renderings, 3-D volume renderings, 3D post processing, vascular maximum intensity projections obtained. Contrast administered is 60 cc Isovue-300.. Low dose protocols were performed. One or more of the following dose reduction techniques were used; automated exposure control, adjustment of the mA and/or KV according to patient size, use of iterative reconstruction technique. Findings: No thoracic aortic aneurysmal dilatation or dissection. No pulmonary artery filling defects No paratracheal tracheobronchial or bronchopulmonary adenopathy Extensive bilateral lung opacity consistent with pneumonia, more severe in the right lung Moderate osteopenia Impression: Negative for pulmonary artery emboli Extensive bilateral pneumonia
[2025-05-25 23:14] VITALS: BP 131/64; PULSE 89; RESP 17; O2SAT 93
[2025-05-25 23:15] VITALS: PULSE 80; RESP 21; O2SAT 99
[2025-05-25] MEDS: ALBUTEROL/IPRATROPIUM (Duoneb) RT SOL 3 ML NEBU INH (23:15)
[2025-05-25 23:26] LABS: Base Excess -1 (-3-3); HCO3 23 mEq/L (20-26); O2 Saturation 97 % (91-98); PCO2 34 mmHg (32.0-48.0); PO2 106 mmHg (83-108); pH, Arterial 7.44 (7.35-7.45)
[2025-05-25 23:27] LABS: Allen Test Performed/OK; Inspired O2, VO2 Liters 2 L/min; Puncture Site Right Radial
[2025-05-25] MEDS: SODIUM CHLORIDE 0.9% 1000 ML 1,000 ML 999 ML IV (23:33)
[2025-05-25] MEDS: MethylPREDNISolone SOD SUCC 62.5 MG/ML 2ML VIAL 125 MG IVP (23:33)
[2025-05-25 23:37] LABS: Lactate (Lactic Acid) 2.5 mMol/L (0.4-2.0)
[2025-05-25 23:41] LABS: Basophils # (Auto) 0.0 Thou/mm3 (0.0-0.2); Basophils % (Auto) 0 % (0-2.5); Eosinophils # (Auto) 0.0 Thou/mm3 (0.0-0.5); Eosinophils % (Auto) 0 % (0-10); Hematocrit 46.1 % (41.0-53.0); Hemoglobin 15.5 g/dL (13.5-16.0); Immature Granulocytes Auto 0.08 Thou/mm3 (0.00-0.00); Lymphocytes # (Auto) 0.4 Thou/mm3 (1.0-4.8); Lymphocytes % (Auto) 2 % (10-50); Mean Corpuscular HGB Conc 33.6 g/dl (31.0-37.0); Mean Corpuscular Hemoglobin 27.9 pg (25.0-35.0); Mean Corpuscular Volume 83 fL (80-100); Monocytes # (Auto) 1.2 Thou/mm3 (0.0-0.8); Monocytes % (Auto) 7 % (0-12); Neutrophils # (Auto) 16.2 Thou/mm3 (1.8-7.7); Neutrophils % (Auto) 90 % (37-80); Nucleated Red Blood Cell # 0.00 Thou/mm3 (0.00-0.00); Nucleated Red Blood Cell % 0 /100 WBC (0); Platelet Count 329 Thou/mm3 (140-440); RDW Standard Deviation 44.8 fL (35.1-43.9); Red Blood Count 5.55 Miln/mm3 (4.50-5.90); White Blood Count 17.9 Thou/mm3 (3.8-10.6)
[2025-05-25 23:44] VITALS: PULSE 80; RESP 23; O2SAT 94
[2025-05-25 23:52] LABS: INR 1.1 (0.9-1.3); Partial Thromboplastin Time 27.1 Seconds (22.0-36.0); Prothrombin Time 11.5 Seconds (9.0-12.2)
[2025-05-25 23:57] LABS: Sed Rate (ESR) 48 mm/hr (0-20)
[2025-05-25 23:58] LABS: D-Dimer 1450 ng/mL (<600)
[2025-05-26] VITALS (18 sets, daily range): BP systolic 118–155; BP diastolic 58–79; PULSE 47–90; RESP 12–33; TEMP 35.9–36.6; O2SAT 90–94; BMI 29.4
[2025-05-26 00:08] LABS: Alanine Aminotransferase 41 U/L (10-49); Albumin, Serum 4.5 gm/dL (3.4-4.8); Albumin/Globulin Ratio 1.7 (1.2-2.2); Alkaline Phosphatase 67 U/L (46-116); Anion Gap 12 (7-16); Aspartate Amino Transferase 40 U/L (0-34); BUN/Creatinine Ratio 12 Ratio (12-20); Bilirubin,Direct 0.3 mg/dL (0.0-0.3); Bilirubin,Total 1.0 mg/dL (0.3-1.2); Blood Urea Nitrogen 21 mg/dL (9-23); C-Reactive Protein 4.2 mg/dL (0.0-0.9); Calcium 10.2 mg/dL (8.3-10.6); Calcium (Corrected) 10.2 mg/dL (8.5-10.1); Carbon Dioxide 22.6 mMol/L (20.0-31.0); Chloride 102 mMol/L (98-107); Creatinine (Component) 1.7 mg/dL (0.6-1.3); Estimated Creatinine Clearance 44.5 mL/min (>60); Globulin 2.6 gm/dL (2.3-3.5); Glucose 244 mg/dL (74-106); Lipase 27 U/L (12-53); Magnesium 1.8 mg/dL (1.6-2.6); Osmolality,Calculated 284 (275-295); Potassium 4.7 mMol/L (3.4-5.1); Procalcitonin 0.31 ng/ml (0.0-0.49); Sodium 137 mMol/L (136-145); Thyroid Stimulating Hormone 8.54 uIU/mL (0.55-4.78); Total Protein 7.1 gm/dL (5.7-8.2); Troponin I < 0.020 ng/mL (0.0-0.045); eGFR 41 See Note
[2025-05-26 00:14] LABS: B-Type Natriuretic Peptide 57 pg/mL (0-100)
--- NOTE | 2025-05-26 00:31 | XR_ITS ---
Examination: Venous duplex lower extremity sonogram, bilateral. Date and time of exam: May 26, 2025, 0017 hrs. Indications: Leg edema and elevated d-dimer on laboratory examination today. Technique: Multiple sonographic images of the deep venous system have been obtained. B-mode/2-D grayscale imaging of vascular structures and Doppler spectral analysis (waveforms) and color performed Both legs are examined. Findings: Deep venous systems do not demonstrate abnormal echogenicity. All visualized deep veins exhibit compressibility. All visualized deep veins exhibit augmentation. Impression: Negative for deep vein thrombosis
[2025-05-26 00:47] LABS: Collection Type, Urine Clean Catch; Squamous Epithelial Cell,Urine 0 /hpf (0-5)
[2025-05-26 00:48] LABS: Free T3 2.4 pg/mL (2.3-4.2); Free T4 (Free Thyroxine) 1.11 ng/dL (0.89-1.76)
[2025-05-26 00:51] LABS: Bilirubin,Urine Negative (Negative); Blood,Urine 1+ (Negative); Clarity,Urine Clear (Clear/Hazy); Color,Urine Yellow (Lt Yel-Yel); Culture Indicated,Urine Not Indicated; Glucose, Urine Trace (Negative); Ketones,Urine Negative (Negative); Leukocyte Esterase,Urine Negative (Negative); Nitrite,Urine Negative (Negative); PH,Urine 5.5 (5.0-7.0); Protein,Urine 1+ (Neg - Trace); RBC,Urine 8 /hpf (0-3); Specific Gravity,Urine 1.023 (1.001-1.035); Urobilinogen,Urine Negative mg/dL (0.0-1.0); WBC,Urine 3 /hpf (0-5)
--- NOTE | 2025-05-26 02:31 | PRELIM_ITS ---
CT scan of the head without intravenous contrast (axial sections with sagittal and coronal reformats). May 26, 2025 0054 hours Clinical History: Weakness and vomiting Compared with prior study dated May 22 2025. Findings: Stable hematoma is again seen in the left thalamus, measuring 1.5 x 1 cm with mild surrounding edema. No evidence of significant midline shift. A old lacunar infarct is noted in the right basal ganglia. There are mild periventricular white matter hypodensities, likely representing chronic small vessel ischemia. There is mild volume loss. The calvarium is unremarkable. The mastoid air cells and the visualized paranasal sinuses are clear. Impression: Stable left thalamic hematoma measuring 1.5 x 1 cm with mild surrounding edema. Chronic small vessel ischemia, old lacunar infarct and volume loss as described above. Discussion Details: Results verbally communicated to : Dr. Ruth at 02:06 AM 05/26/2025 Report Electronically Signed By: Caden Grigsby 05/26/2025 2:30:29 AM [EST]
[2025-05-26 02:33] LABS: Reflex Lactate? Y
--- NOTE | 2025-05-26 02:48 | PRELIM_ITS ---
CT angiogram of the chest with intravenous contrast (axial sections with sagittal and coronal reformats, 3D/MIP reconstructed images) May 26, 2025 0056 hours Clinical History: SOB, hypoxia. No prior study is available for comparison. Findings: There is no filling defect within the pulmonary artery divisions to suggest pulmonary thromboembolism. The mediastinum demonstrates no evidence of mass or lymphadenopathy. The thoracic aorta is unremarkable. There is no pericardial effusion. Multifocal patchy infiltrates are noted in the lungs bilaterally. Segmental consolidation noted in bilateral lower lobes. No evidence of pleural effusion or pneumothorax. Mild degenerative changes are identified in the spine. The visualized upper abdominal viscera are unremarkable. Impression: Multifocal patchy infiltrates in the lungs bilaterally with segmental consolidation in bilateral lower lobes, likely multifocal pneumonia. Recommend clinical correlation and followup. Report Electronically Signed By: Caden Grigsby 05/26/2025 2:48:39 AM [EST]
--- NOTE | 2025-05-26 02:52 | PRELIM_ITS ---
CT scan of the abdomen and pelvis with intravenous contrast (axial sections with sagittal and coronal reformats); May 26, 2025 at 0056 hours Clinical History: Abdominal pain and vomiting No prior study is available for comparison. Findings: Fatty infiltration of the liver is noted. A few cortical cysts are noted in left kidney, the largest measuring 1.7 x 1.2 cm. The gallbladder, pancreas, spleen, right kidney and adrenals are unremarkable. . There are fluid filled dilated small bowel loops with transition in the left lower quadrant at the level of distal ileum.The appendix is within normal limits. There are occasional colonic diverticula without evidence of diverticulitis. There is moderate to marked prostatomegaly. There is mild diffuse bladder wall thickening with a few small bladder diverticula. There is no free fluid or free air.There is no adenopathy. There is a small fat containing umbilical hernia. Mild degenerative changes are identified in the spine. Lumbosacral transitional vertebra noted. There is a mild chronic wedge compression deformity of L3 vertebral body. Impression: Small bowel obstruction with transition in the left lower quadrant at the level of distal ileum. Moderate to marked prostatomegaly. Chronic bladder outlet obstruction with a few small bladder diverticula. Report Electronically Signed By: Caden Grigsby 05/26/2025 2:52:15 AM [EST]
--- NOTE | 2025-05-26 02:54 | PRELIM_ITS ---
Bilateral lower extremity venous Doppler ultrasound. May 26, 2025 at 0117 hours Clinical history: Edema, high dimer. Findings: Landa scale, color flow and spectral Doppler evaluation of the lower extremity deep veins was performed. Right: The common femoral, superficial femoral and popliteal veins are patent and compressible. Normal respiratory variation and augmentation are noted. The great saphenous vein is patent at the level of the saphenofemoral junction. The posterior tibial and peroneal veins are patent and compressible. Left: The common femoral, superficial femoral and popliteal veins are patent and compressible. Normal respiratory variation and augmentation are noted. The great saphenous vein is patent at the level of the saphenofemoral junction. The posterior tibial and peroneal veins are patent and compressible. Impression: No evidence of deep venous thrombosis in both lower extremities. Report Electronically Signed By: Caden Grigsby 05/26/2025 2:53:16 AM [EST]
--- NOTE | 2025-05-26 03:33 | XR_ITS ---
Examination: Small bowel series with KUB Date and time: May 26, 2025, 0344 hrs. Indications: Abdominal distention this week Technique And Findings: AP portable supine abdomen labeled 1 minute Contrast in the esophagus and stomach Air distended stomach Impression: Initial small bowel series film
[2025-05-26 03:36] LABS: Lactic Acid, 3 HR 1.7 mMol/L (0.4-2.0)
[2025-05-26] MEDS: SODIUM CHLORIDE 0.9% 1000 ML 1,000 ML 999 ML IV (03:49)
[2025-05-26] MEDS: CEFEPIME INJ 2 GM in SODIUM CHLORIDE 0.9% (Popper) 50 ML IV (03:49)
--- NOTE | 2025-05-26 03:49 | ESHP_ITS ---
<Statement entered by Preston Tidwell MD - 05/26/25 06:13> I have discussed and was present for the essential components of the history, physical examination, diagnosis, and treatment plan with the resident. I agree with the patient's care as documented by the resident and amended herein by me. Preston Tidwell MD FACP. Documentation for date of: 05/26/25 HPI History of Present Illness History of present illness: This is a 79-year-old male with PMHx of recent hemorrhagic stroke, TIA, prostate cancer, A-fib on WARFARIN, HTN, HLD, T2DM, presented to the ED with abdominal pain, nausea and vomiting and shortness of breath. Who presented to our ED on 05/22/2025 with unilateral weakness and slurred speech, found to have a 13 mm acute hemorrhagic left basal ganglia stroke. He was transferred to [facility] and was managed medically. Reportedly his speech abnormality had resolved, ambulation is improved, and was discharged home today. At home, he was feeling nauseous and had several episodes of vomiting nonbloody stomach content. After which he was coughing and felt short of breath prompted him to come to the ED. Previous to this he was tolerating oral intake well. Last bowel movement was this morning consisted of small amount of normal, nonbloody stool. Denied new or worsening focal neurological deficits, fever, chills, headaches, visual disturbance, speech disturbances, chest pain, palpitations, abdominal pain, diarrhea, dysuria, hematuria, urinary urgency or frequency. He has a chronic history of A-fib, model maker scale is Dr. Morales. He is on WARFARIN therapy due to cost, which was held [facility] following hemorrhagic stroke. Past Medical History: * As above. Past Surgical History: * None. Medications: * LEVOTHYROXINE 25 mg, LABETALOL 200 mg BID, AMLODIPINE 10 mg daily, WARFARIN 5 mg daily. Allergies: * No known allergies. Family History: * Noncontributory. Social History: * Denies alcohol, drug or tobacco use. ED Course: * Afebrile, BP 126/66, HR 88, standing 90% on room air. * Negative influenza, and COVID. * WBC 17.9 with left shift, Hgb and PLT WNL. * Normal coag studies, INR 1.1. * Blood gas showed no abnormalities. * Creatinine 1.7 (baseline 1.3), eGFR 41 (baseline around 50s), GLUCOSE 244, lactic acid 2.5 > 1.7, AST 40, ALT 41, CRP 4.2, TSH 8.54, free T41.11. * Urine negative for UTI. * EKG shows sinus rhythm without acute ST changes. * CXR showed minor subsegmental atelectasis of the right base. * Prelim venous Doppler negative for lower extremity DVT bilaterally. * Prelim CT abdomen showed small bowel obstruction with transition point in the left lower quadrant ECHO level of the distal ileum, moderate to marked prostamegaly, chronic bladder outlet obstruction with a few small bladder diverticuli. * Prelim CT chest showed multi focal patchy infiltrates in the lung, likely multifocal pneumonia bilaterally. * Prelim Head CT showed stable left thalamic hematoma, chronic small vessel ischemia, old infarct and volume loss. While in ED, he was given 2 L NS, METHYLPREDNISONE 125 mcg tablet, ANTIEMETICS, CLONIDINE 0.2 mg x 1, CEFEPIME, VANCOMYCIN, and DUONEB treatment. Started on BiPAP and was satting well. Reason for admission: This is a patient with multiple comorbidity, who was discharged today after medical management for hemorrhagic stroke which appears to be stable on head CT today, presenting with acute hypoxemic respiratory failure, likely secondary to aspiration pneumonitis versus pneumonia in settings of vomiting secondary to small bowel obstruction. He requires IV ANTIBIOTICS treatment, close vital monitoring given his A-fib, NG tube on intermittent low suction along with GASTROGRAFIN study. Will hold WARFARIN in settings of subacute hemorrhagic stroke. There is also evidence of NEELA and lactic acidosis, likely from dehydration requiring IV fluids. Review of Systems Review of Systems Systems Reviewed: All systems reviewed, normal except as documented Exam Vital Signs Temp Pulse Resp BP Pulse Ox O2 Del Method O2 Flow Rate 98.5 F 84 17 155/74 H 93 L Nasal Cannula 7 05/25/25 22:51 05/26/25 01:59 05/26/25 01:49 05/26/25 01:59 05/26/25 01:49 05/26/25 00:43 05/26/25 01:29 FiO2 35 05/26/25 01:49 Narrative Exam GENERAL * Normal appearing male, NAD. HEENT * NCAT.?SHILPA. Oral mucosa is moist. Patent Nares NECK * Supple, nontender, no JVD. CHEST * RRR, no m/g/r * CTAB, no w/r/r, symmetrical expansion. ABDOMEN * Distended, slightly tense abdomen. * Tenderness present in left lower quadrant. * Bowel sounds decreased but presents. EXTREMITIES * No edema/cyanosis.? SKIN * Warm and dry, no jaundice/rashes. NEUROMUSCULAR * No lumbar or midline, no CVA, no paraspinal muscle spasm or tenderness. * Moves all 4 extremities well, with full ROM and good CSM. * BEAL x4, CN II-XII grossly intact. * No focal neurologic deficits. PSYCHIATRY * Normal mood and affect, cooperative, no SI or HI or hallucinations. Results: Labs 05/26/25 04:50 05/25/25 23:10 Labs: Short CBC 05/25/25 Range/Units 23:10 WBC 17.9 H D (3.8-10.6) Thou/mm3 Hgb 15.5 (13.5-16.0) g/dL Hct 46.1 (41.0-53.0) % Plt Count 329 D (140-440) Thou/mm3 BMP 05/25/25 23:10 Sodium 137 Potassium 4.7 Chloride 102 Carbon Dioxide 22.6 BUN 21 Creatinine 1.7 H Glucose 244 H Calcium 10.2 Cardiac Enzymes 05/25/25 Range/Units 23:10 Troponin I < 0.020 (0.0-0.045) ng/mL Liver Function 05/25/25 Range/Units 23:10 Total Bilirubin 1.0 (0.3-1.2) mg/dL Direct Bilirubin 0.3 (0.0-0.3) mg/dL AST 40 H (0-34) U/L ALT 41 (10-49) U/L Alkaline Phosphatase 67 (46-116) U/L Albumin 4.5 (3.4-4.8) gm/dL Urine 05/26/25 Range/Units 00:30 Urine Color Yellow (Lt Yel-Yel) Urine Clarity Clear (Clear/Hazy) Urine pH 5.5 (5.0-7.0) Ur Specific Arbuckle 1.023 (1.001-1.035) Urine Protein 1+ A (Neg - Trace) Urine Glucose (UA) Trace (Negative) ABG Interpretation ABG results: 05/25/25 23:10 ABG pH 7.44 ABG pCO2 34 ABG pO2 106 ABG HCO3 23 ABG O2 Saturation 97 ABG Base Excess -1 Quality Measures Quality Measures none Advance care planning discussed with:: patient and spouse Medications Home Medications and Allergies Home Medications ?Medication ?Instructions ?Recorded ?Confirmed ?Type metformin 500 mg tablet 500 mg PO BID 08/29/1805/21 History levothyroxine 25 mcg capsule 25 mcg PO QDAY 07/16/19 0 05/21/25 History lisinopril 20 mg tablet 20 mg PO QDAY 07/16/1905/21 History tamsulosin 0.4 mg capsule 0.4 mg PO QHS 11/01/2005/21 History amiodarone 200 mg tablet 200 mg PO QDAY 04/21/2102/07 History tadalafil 5 mg tablet (Cialis) 5 mg PO QDAY 05/08/22 0 05/21/25 History warfarin 5 mg tablet 5 mg PO QMWF 04/05/23 History Allergies Allergy/AdvReac Type Severity Reaction Status Date / Time No Known Allergies Allergy Verified 05/21/25 08:56 Visit Medications Acetaminophen (Acetaminophen 325 Mg Tablet) 650 mg NG Q6H PRN PRN Reason: Fever >100.4 Stop: 06/25/25 03:32 Amlodipine Besylate (Amlodipine Besylate 5 Mg Tablet) 10 mg PO QDAY MARTHA Stop: 06/25/25 08:59 Atorvastatin Calcium (Atorvastatin Calcium 20 Mg Tablet) 40 mg NG HS MARTHA Stop: 06/25/25 20:59 Dextrose (Dextrose 50%-Water Inj 50 Ml Syringe) 25 ml IV Q15MIN PRN PRN Reason: BG 50-70 responsive npo pt Stop: 06/25/25 03:37 Dextrose (Dextrose 50%-Water Inj 50 Ml Syringe) 50 ml IV Q15MIN PRN PRN Reason: BG <50 OR BG <70 & pt unresponsive Stop: 06/25/25 03:37 Glucagon (Glucagon Inj 1 Mg Vial) 1 mg IM Q15MIN PRN PRN Reason: BG <70, and no IV access Vancomycin HCl 2,000 mg/ (Sodium Chloride) 500 mls @ 150 mls/hr IV X1 ONE Stop: 05/26/25 06:14 Sodium Chloride (Ns) 1,000 mls @ 999 mls/hr IV .Q1H1M ONE Stop: 05/26/25 03:55 Sodium Chloride (Ns) 1,000 mls @ 80 mls/hr IV .[id number] [facility] Stop: 05/26/25 16:14 Insulin Human Lispro (Insulin Lispro (Admelog) 1 Unit/0.01 Ml Unit) 0 unit SC ACHS [facility]; Protocol Stop: 06/25/25 07:29 Labetalol HCl (Labetalol Inj 5 Mg/Ml Vial 20 Ml) 10 mg IVP Q2H PRN PRN Reason: SBP>140 Stop: 06/25/25 03:37 Morphine Sulfate (Morphine Sulf Inj 4 Mg/Ml Vial) 2 mg IVP Q4HR PRN PRN Reason: Pain 4-10 Stop: 05/31/25 03:32 Ondansetron HCl (Ondansetron Inj 2 Mg/Ml Inj 2 Ml) 4 mg IVP Q6H PRN; Protocol PRN Reason: NAUSEA OR VOMITING Stop: 06/25/25 03:32 Pantoprazole Sodium (Pantoprazole Inj 40 Mg Vial) 40 mg IVP QDAY [facility] Stop: 06/25/25 08:59 Discontinued Medications Albuterol/Ipratropium (Albuterol/Ipratropium (Duoneb) Rt Stefany 3 Ml Nebu) 3 ml INH X1 ONE Stop: 05/25/25 23:03 Last Admin: 05/25/25 23:15 Dose: 3 ml Clonidine (Clonidine Hcl 0.1 Mg Tablet) 0.2 mg PO X1 ONE Stop: 05/26/25 01:55 Last Admin: 05/26/25 01:59 Dose: 0.2 mg Sodium Chloride (Ns) 1,000 mls @ 999 mls/hr IV .Q1H1M ONE Stop: 05/26/25 00:02 Last Infusion: 05/26/25 00:50 Dose: Infused Cefepime HCl 2 gm/ Sodium (Chloride) 50 mls @ 100 mls/hr IV X1 ONE Stop: 05/26/25 03:24 Methylprednisolone Sodium Succinate (Methylprednisolone Sod Succ 62.5 Mg/Ml 2ml Vial) 125 mg IVP X1 ONE Stop: 05/25/25 23:03 Last Admin: 05/25/25 23:33 Dose: 125 mg Ondansetron HCl (Ondansetron Inj 2 Mg/Ml Inj 2 Ml) 4 mg IVP X1 ONE; Protocol Stop: 05/25/25 23:03 Last Admin: 05/25/25 23:32 Dose: Not Given Assessment & Plan Plan This is a 79-year-old male with PMHx of recent hemorrhagic stroke, TIA, prostate cancer, A-fib on WARFARIN, HTN, HLD, T2DM, presented to the ED with abdominal pain, nausea and vomiting and shortness of breath. Admitted for acute hypoxemic respiratory failure 2/2 likely aspiration pneumonia 2/2 vomiting in settings of SBO. Acute hypoxemic respiratory failure Pneumonia, likely aspiration Lactic acidosis (resolved) With acute hypoxemic respiratory failure following an episode of vomiting earlier today. CT showed multifocal bilateral pneumonia. Most likely aspirated in settings of SBO described below. Currently on BiPAP, satting well. Afebrile, has mild reactive leukocytosis of 17. Also had mild lactic acidosis which resolved with fluids. ? DUONEB PRN ? Started DOXYCYCLINE IV BID and ZOSYN IV renally dosed ? Pending cultures ? Oxygen PRN Small bowel obstruction Last BM was this morning and was small but normal, he had several episodes of vomiting stomach content while at home. CT abdomen showed small bowel obstruction with transition point in the left ileus. Had mild abdominal pain in the left lower quadrant on exam. Denies dark or bloody stool. Continues to feel nauseous. ? Bowel rest ? NG tube intermittent/low suction ? General surgery consulted (Dr. Holguin) Recent hemorrhagic stroke Atrial fibrillation (likely paroxysmal) on WARFARIN Hypertension Hyperlipidemia On 05/22/2025, he had a 13 mm acute infarct of the left basal ganglia and was managed medically at [facility], WARFARIN was held appropriately, and was discharged today after symptoms improved. Repeat head CT on this admission showed no worsening hemorrhagic stroke, and no focal neurological deficits on exam. EKG shows sinus rhythm without acute ST changes, HR controlled. Target BP systolic less than 140. ? Continue LABETALOL PRN for SBP greater than 140 ? Continue home ATORVASTATIN 40 mg daily ? Resume home/oral meds when able Prerenal NEELA on? CKD 3A-3B On admission creatinine 1.7, GFR 41. Baseline GFR around 50s. Likely has NEELA in setting of dehydration. ? Given 2 L fluids while in ED ? Continue maintenance fluids at 80 cc/H ? Renally dose meds, avoid overdiuresis and NEPHROTOXINS ? Daily CMP Hypothyroidism Normal thyroid function. ? Started LEVOTHYROXINE 15 mcg IV, transition to home dose of 25 mg orally when able T2DM Admission GLUCOSE 244. ? INSULIN sliding scale ? Accu-Cheks Prostate cancer Follows up with Dr. Bustamante. No symptoms of urinary incontinence or retention. ? Continue outpatient follow-up Health maintenance Diet: NPO GI prophylaxis: PROTONIX DVT prophylaxis: SCD Antibiotics: DOXYCYCLINE, ZOSYN CODE STATUS: Full code Disposition: Admitted for acute hypoxemic respiratory failure, aspiration pneumonia, NEELA, lactic acidosis, SBO. Case was discussed with attending physician, Dr. Elizalde. Rodolfo Rehman, DO PGY II This document was transcribed using voice recognition technology. Minor inaccuracies may be present.
[2025-05-26 03:51] LABS: INR 1.1 (0.9-1.3); Partial Thromboplastin Time 29.9 Seconds (22.0-36.0); Prothrombin Time 11.9 Seconds (9.0-12.2)
--- NOTE | 2025-05-26 04:08 | XR_ITS ---
Examination: AP chest single view Technique one AP portable upright chest single view Date and time: May 26, 2025, 0407 hrs., Comparison May 25, 2025 Indications: Orogastric tube placement. Findings: Worsening pneumonia right lower lung zone. Moderate enlargement left ventricle. Orogastric tube in the stomach, the tip poorly visualized as there is contrast in the fundus of the stomach Mild vascular congestion. Impression: Significant right lung pneumonia.
[2025-05-26] MEDS: PIPER/TAZO 3.375 GM PREMIX 3.375 GM/50 ML BAG IV ×3 (04:23→18:10)
[2025-05-26] MEDS: SODIUM CHLORIDE 0.9% 1000 ML 1,000 ML 80 ML IV (04:23)
--- NOTE | 2025-05-26 05:01 | PC.NURSE ---
small bowel series was cancelled by dr. ramirez. bowel series was started by x ray service technician. ng was then inserted by this rn. this rn called provider to verify if he wanted to start LIS or continue bowel series. per provider to start lis and cancel bowel series
[2025-05-26 06:04] LABS: Basophils # (Auto) 0.0 Thou/mm3 (0.0-0.2); Basophils % (Auto) 0 % (0-2.5); Eosinophils # (Auto) 0.0 Thou/mm3 (0.0-0.5); Eosinophils % (Auto) 0 % (0-10); Hematocrit 43.3 % (41.0-53.0); Hemoglobin 14.3 g/dL (13.5-16.0); Immature Granulocytes Auto 0.04 Thou/mm3 (0.00-0.00); Lymphocytes # (Auto) 0.3 Thou/mm3 (1.0-4.8); Lymphocytes % (Auto) 2 % (10-50); Mean Corpuscular HGB Conc 33.0 g/dl (31.0-37.0); Mean Corpuscular Hemoglobin 28.3 pg (25.0-35.0); Mean Corpuscular Volume 86 fL (80-100); Monocytes # (Auto) 0.6 Thou/mm3 (0.0-0.8); Monocytes % (Auto) 4 % (0-12); Neutrophils # (Auto) 14.4 Thou/mm3 (1.8-7.7); Neutrophils % (Auto) 94 % (37-80); Nucleated Red Blood Cell # 0.00 Thou/mm3 (0.00-0.00); Nucleated Red Blood Cell % 0 /100 WBC (0); Platelet Count 278 Thou/mm3 (140-440); RDW Standard Deviation 46.5 fL (35.1-43.9); Red Blood Count 5.06 Miln/mm3 (4.50-5.90); White Blood Count 15.3 Thou/mm3 (3.8-10.6)
[2025-05-26] MEDS: INSULIN LISPRO (AdmeLOG) 1 UNIT/0.01 ML UNIT SC ×3 (06:25→18:15)
[2025-05-26 06:30] LABS: Alanine Aminotransferase 41 U/L (10-49); Albumin, Serum 3.9 gm/dL (3.4-4.8); Albumin/Globulin Ratio 1.6 (1.2-2.2); Alkaline Phosphatase 56 U/L (46-116); Anion Gap 11 (7-16); Aspartate Amino Transferase 30 U/L (0-34); BUN/Creatinine Ratio 10 Ratio (12-20); Bilirubin,Total 1.4 mg/dL (0.3-1.2); Blood Urea Nitrogen 18 mg/dL (9-23); Calcium 9.3 mg/dL (8.3-10.6); Calcium (Corrected) 9.4 mg/dL (8.5-10.1); Carbon Dioxide 21.5 mMol/L (20.0-31.0); Chloride 105 mMol/L (98-107); Creatinine (Component) 1.8 mg/dL (0.6-1.3); Estimated Creatinine Clearance 42.3 mL/min (>60); Globulin 2.5 gm/dL (2.3-3.5); Glucose 343 mg/dL (74-106); Magnesium 1.8 mg/dL (1.6-2.6); Osmolality,Calculated 289 (275-295); Phosphorous 4.0 mg/dL (2.4-5.1); Potassium 4.7 mMol/L (3.4-5.1); Sodium 137 mMol/L (136-145); Total Protein 6.4 gm/dL (5.7-8.2); eGFR 38 See Note
--- NOTE | 2025-05-26 08:53 | PC.PT ---
PT eval witheld. Patient is currently on Bipap.
[2025-05-26] MEDS: Magnesium Sulfate 2 GM Ivpb 2 GM/50 ML BAG IV (09:02)
[2025-05-26] MEDS: DOXYCYCLINE INJ 100 MG in SODIUM CHLORIDE 0.9% (POP) 100 ML IV ×2 (09:03→21:30)
--- NOTE | 2025-05-26 11:46 | ESPR_ITS ---
<Statement entered by Devendra Escalante MD - 05/26/25 14:12> Overnight admission for SBO and aspiration pneumonia. Per patient, states that he had 2 episodes of emesis while in recumbent position and NG tube suctioned out about 600 cc of stomach contents overnight. Denies any abdominal pain/tenderness, nausea, but does endorse passing gas. Will follow-up small bowel series, continue doxycycline and Zosyn and de-escalate antibiotics as deemed necessary. Otherwise, he is on OxyMask saturating well and other vital signs stable, leukocytosis improving, and slight decrease in renal function his creatinine went up from 1.7 to 1.8. ----- Note reviewed and agree with care plan as documented. Please refer to the note below for further details. Plan discussed with attending physician Dr. Agustin Escalante MD PGY-2 Internal Medicine Documentation for date of: 05/26/25 Subjective Subjective Interval history: The patient's oxygen requirement meek and chest x-ray was significant for right lung pneumonia. He was started on Zosyn in addition to his established Doxycyclin. NG tube remains on low intermittent suction. Plan for Gastrografin study today. Patient has been passing gas. General surgery on board. Exam Vital Signs Temp Pulse Resp BP Pulse Ox O2 Del Method O2 Flow Rate 97.0 F 67 20 144/68 H 92 L BiPAP 4 05/26/25 08:00 05/26/25 08:00 05/26/25 08:00 05/26/25 08:00 05/26/25 08:00 05/26/25 08:00 05/26/25 07:42 FiO2 35 05/26/25 05:07 Narrative Exam General: NG tube in place, appears uncomfortable but not in acute distress. Neurologic: GCS 15. Alert and oriented x3, no gross neurological deficit, and patient able to move all 4 extremities. HEENT: Normocephalic, atraumatic, mucous membranes moist. Pupils reactive to light. Heart: Regular rate and rhythm, normal S1 and S2, no murmurs. Lungs: Oxygen mask at 4 L, slight wheezing bilaterally. Abdomen: Significant distention, umbilical hernia. Extremities: No edema. 2+ radial and dorsalis pedis pulses bilaterally. Skin: Warm. Dry. No rash or ecchymoses. Objective Labs 05/27/25 04:31 05/27/25 04:31 Labs: Laboratory Results - last 24 hr 05/25/25 05/26/25 05/26/25 23:10 00:30 03:25 WBC 17.9 H D RBC 5.55 Hgb 15.5 Hct 46.1 MCV 83 MCH 27.9 MCHC 33.6 RDW Std Deviation 44.8 H Plt Count 329 D Neut % (Auto) 90 H Lymph % (Auto) 2 L White % (Auto) 7 Eos % (Auto) 0 Baso % (Auto) 0 Neut # (Auto) 16.2 H Lymph # (Auto) 0.4 L White # (Auto) 1.2 H Eos # (Auto) 0.0 Baso # (Auto) 0.0 Immature Gran # (Auto) 0.08 H Absolute Nucleated RBC 0.00 Immature Gran % 0 Nucleated RBC % 0 ESR 48 H PT 11.5 D 11.9 INR 1.1 1.1 APTT 27.1 D 29.9 D-Dimer 1450 H Puncture Site Right Radial ABG pH 7.44 ABG pCO2 34 ABG pO2 106 ABG HCO3 23 ABG O2 Saturation 97 ABG Base Excess -1 Oxygen Liter Flow 2 Sodium 137 Potassium 4.7 Chloride 102 Carbon Dioxide 22.6 Anion Gap 12 BUN 21 Creatinine 1.7 H Estim Creat Clear Calc 44.5 L eGFR 41 L BUN/Creatinine Ratio 12 Glucose 244 H Calculated Osmolality 284 Lactic Acid 2.5 H 1.7 Calcium 10.2 Corrected Calcium 10.2 H Phosphorus Magnesium 1.8 Total Bilirubin 1.0 Direct Bilirubin 0.3 AST 40 H ALT 41 Alkaline Phosphatase 67 Troponin I < 0.020 C-Reactive Prot, Quant 4.2 H B-Natriuretic Peptide 57 Total Protein 7.1 Albumin 4.5 Globulin 2.6 Albumin/Globulin Ratio 1.7 Lipase 27 Procalcitonin 0.31 TSH 8.54 H Free T4 1.11 Free T3 pg/dL 2.4 Ur Collection Type Clean Catch Urine Color Yellow Urine Clarity Clear Urine pH 5.5 Ur Specific [place] 1.023 Urine Protein 1+ A Urine Glucose (UA) Trace Urine Ketones Negative Urine Blood 1+ A Urine Nitrite Negative Urine Bilirubin Negative Urine Urobilinogen (Auto) Negative Ur Leukocyte Esterase Negative Urine RBC 8 H Urine WBC 3 Ur Squamous Epith Cells 0 Urine Bacteria None Ur Culture Indicated? Not Indicated 05/26/25 04:50 WBC 15.3 H RBC 5.06 Hgb 14.3 Hct 43.3 MCV 86 MCH 28.3 MCHC 33.0 RDW Std Deviation 46.5 H Plt Count 278 D Neut % (Auto) 94 H Lymph % (Auto) 2 L White % (Auto) 4 Eos % (Auto) 0 Baso % (Auto) 0 Neut # (Auto) 14.4 H Lymph # (Auto) 0.3 L White # (Auto) 0.6 Eos # (Auto) 0.0 Baso # (Auto) 0.0 Immature Gran # (Auto) 0.04 H Absolute Nucleated RBC 0.00 Immature Gran % 0 Nucleated RBC % 0 ESR PT INR APTT D-Dimer Puncture Site ABG pH ABG pCO2 ABG pO2 ABG HCO3 ABG O2 Saturation ABG Base Excess Oxygen Liter Flow Sodium 137 Potassium 4.7 Chloride 105 Carbon Dioxide 21.5 Anion Gap 11 BUN 18 Creatinine 1.8 H Estim Creat Clear Calc 42.3 L eGFR 38 L BUN/Creatinine Ratio 10 L Glucose 343 H D Calculated Osmolality 289 Lactic Acid Calcium 9.3 Corrected Calcium 9.4 Phosphorus 4.0 Magnesium 1.8 Total Bilirubin 1.4 H Direct Bilirubin AST 30 ALT 41 Alkaline Phosphatase 56 Troponin I C-Reactive Prot, Quant B-Natriuretic Peptide Total Protein 6.4 Albumin 3.9 D Globulin 2.5 Albumin/Globulin Ratio 1.6 Lipase Procalcitonin TSH Free T4 Free T3 pg/dL Ur Collection Type Urine Color Urine Clarity Urine pH Ur Specific [place] Urine Protein Urine Glucose (UA) Urine Ketones Urine Blood Urine Nitrite Urine Bilirubin Urine Urobilinogen (Auto) Ur Leukocyte Esterase Urine RBC Urine WBC Ur Squamous Epith Cells Urine Bacteria Ur Culture Indicated? ABG Interpretation ABG results: 05/25/25 23:10 ABG pH 7.44 ABG pCO2 34 ABG pO2 106 ABG HCO3 23 ABG O2 Saturation 97 ABG Base Excess -1 Quality Measures Quality Measures none Advance care planning discussed with:: patient Assessment & Plan Assessment Current Active Medications: Generic Name Dose Route Start Last Admin Trade Name Freq PRN Reason Stop Dose Admin Acetaminophen 650 mg 05/26/25 03:33 Acetaminophen 325 Mg Tablet NG 06/25/25 03:32 Q6H PRN Fever >100.4 Albuterol/Ipratropium 3 ml 05/26/25 04:08 Albuterol/Ipratropium (Duoneb) Rt Stefany 3 Ml Nebu INH 06/25/25 04:07 Q6HRRT PRN Wheezing Amlodipine Besylate 10 mg 05/26/25 09:00 05/26/25 08:53 Amlodipine Besylate 5 Mg Tablet PO 06/25/25 08:59 Not Given QDAY MARTHA Atorvastatin Calcium 40 mg 05/26/25 21:00 Atorvastatin Calcium 20 Mg Tablet NG 06/25/25 20:59 HS MARTHA Dextrose 25 ml 05/26/25 03:38 Dextrose 50%-Water Inj 50 Ml Syringe IV 06/25/25 03:37 Q15MIN PRN BG 50-70 responsive npo pt Dextrose 50 ml 05/26/25 03:38 Dextrose 50%-Water Inj 50 Ml Syringe IV 06/25/25 03:37 Q15MIN PRN BG <50 OR BG <70 & pt unresponsive Glucagon 1 mg 05/26/25 03:38 Glucagon Inj 1 Mg Vial IM Q15MIN PRN BG <70, and no IV access Sodium Chloride 1,000 mls @ 80 mls/hr 05/26/25 03:45 05/26/25 04:23 Ns IV 05/26/25 16:14 80 mls/hr .[id number] MARTHA Administration Piperacillin/Tazobactam/Dextrose 3.375 gm in 50 mls @ 12.5 mls/hr 05/26/25 03:43 05/26/25 06:22 Zosyn IV 06/02/25 03:42 Not Given Q6HR [facility] [place] Protocol Doxycycline Hyclate 100 mg/ 100 mls @ 100 mls/hr 05/26/25 09:00 05/26/25 09:03 Sodium Chloride IV 06/02/25 08:59 100 mls/hr BID MARTHA Administration Insulin Human Lispro 0 unit 05/26/25 07:00 Insulin Lispro (Admelog) 1 Unit/0.01 Ml Unit SC 06/25/25 06:29 Q6HR [facility] [place] Protocol Labetalol HCl 10 mg 05/26/25 08:19 Labetalol Inj 5 Mg/Ml Vial 20 Ml IVP 06/25/25 03:37 Q2H PRN SBP>160 Levothyroxine Sodium 15 mcg 05/26/25 09:00 05/26/25 09:03 Levothyroxine Inj 100 Mcg Vial IV 06/25/25 08:59 15 mcg QDAY MARTHA Administration Morphine Sulfate 2 mg 05/26/25 03:33 Morphine Sulf Inj 4 Mg/Ml Vial IVP 05/31/25 03:32 Q4HR PRN Pain 4-10 Ondansetron HCl 4 mg 05/26/25 03:33 Ondansetron Inj 2 Mg/Ml Inj 2 Ml IVP 06/25/25 03:32 Q6H PRN NAUSEA OR VOMITING Protocol Pantoprazole Sodium 40 mg 05/26/25 09:00 05/26/25 09:02 Pantoprazole Inj 40 Mg Vial IVP 06/25/25 08:59 40 mg QDAY MARTHA Administration Plan This is a 79-year-old male with PMHx of recent hemorrhagic stroke, TIA, prostate cancer, A-fib on WARFARIN, HTN, HLD, T2DM, presented to the ED with abdominal pain, nausea and vomiting and shortness of breath. Admitted for acute hypoxemic respiratory failure 2/2 likely aspiration pneumonia 2/2 vomiting in settings of SBO. #Small bowel obstruction Last BM was morning of presentation and was small but normal, he had several episodes of vomiting stomach content while at home. CT abdomen showed small bowel obstruction with transition point in the left ileus. Had mild abdominal pain in the left lower quadrant on exam. Denies dark or bloody stool. Nausea is improving. Denies ever having an abdominal surgery. There is a umbilical hernia on exam. Patient admits to passing flatus since admission. Plan: - Gastrografin study planned for today ? NG tube intermittent/low suction ? General surgery consulted (Dr. Holguin) #Acute hypoxemic respiratory failure #Pneumonia, likely aspiration #Lactic acidosis (resolved) With acute hypoxemic respiratory failure following an episode of vomiting earlier today. CT showed multifocal bilateral pneumonia. Most likely aspirated in settings of SBO described below. Currently on BiPAP, satting well. Afebrile, has mild reactive leukocytosis of 17. Also had mild lactic acidosis which resolved with fluids. ? DUONEB PRN ? Started DOXYCYCLINE IV BID and ZOSYN IV renally dosed ? Pending cultures ? Oxygen PRN #Recent hemorrhagic stroke #Atrial fibrillation (likely paroxysmal) on WARFARIN #Hypertension #Hyperlipidemia On 05/22/2025, he had a 13 mm acute infarct of the left basal ganglia and was managed medically at [facility], WARFARIN was held appropriately, and was discharged after symptoms improved. Repeat head CT on this admission showed no worsening hemorrhagic stroke, and no focal neurological deficits on exam. EKG showed sinus rhythm without acute ST changes, HR controlled. Target BP systolic less than 140. Plan: ? Continue LABETALOL PRN for SBP greater than 140 ? Continue home ATORVASTATIN 40 mg daily - Continue home amlodipine 10 mg p.o. daily ? Resume home/oral meds when able #Prerenal NEELA on? CKD 3A-3B On admission creatinine 1.7, GFR 41. Baseline GFR around 50s Creatinine meek from 1.7 to 1.8, estimated GFR 38 Likely has NEELA in setting of dehydration Plan: ? Given 2 L fluids while in ED ? Continue maintenance fluids at 80 cc/H ? Renally dose meds, avoid overdiuresis and NEPHROTOXINS ? Daily CMP #Hypothyroidism Normal thyroid function. Plan: ? Started LEVOTHYROXINE 15 mcg IV, transition to home dose of 25 mg orally when able #T2DM Admission GLUCOSE 244. Has been rising. Patient is n.p.o. so glucoses expected to drop with the given insulin Plan: ? INSULIN sliding scale ? Accu-Cheks #Prostate cancer Follows up with Dr. Bustamante. No symptoms of urinary incontinence or retention. Plan: ? Continue outpatient follow-up Health maintenance Diet: NPO GI prophylaxis: PROTONIX DVT prophylaxis: SCD Antibiotics: DOXYCYCLINE, ZOSYN CODE STATUS: Full code Disposition: Admitted for acute hypoxemic respiratory failure, aspiration pneumonia, NEELA, lactic acidosis, SBO. NG tube placed and on low intermittent suction. Gastrografin study today. Patient has been passing flatus. Patient was seen and discussed with my attending physician Dr. Agustin PAEZ and my senior resident Dr. Boris PAEZ PGY-2. Keyon Durham DO PGY-1. Attending Provider Attestation/Addendum 79-year-old male with multiple comorbidities including hypertension, hyperlipidemia, type 2 diabetes mellitus, recent hemorrhagic stroke treated medically and A-fib presented with abdominal pain found to have small bowel obstruction and acute hypoxic respiratory failure with component of aspiration. NG tube in place and patient states that he is passing gas. Continue to monitor closely. As for atrial fibrillation, patient has not been on warfarin secondary to intracranial bleed.I reviewed above note and agree with findings and plans. I have also personally examined the patient with medicine team and went over assessment and plan with medical team including advertising internship and resident physician.
--- NOTE | 2025-05-26 13:07 | PC.SS ---
MASSAGE OPERATOR conducted bedside contact with the patient conduct initial assessment and to discuss discharge planning.? Patient confirmed demographic information.? Patient resides at home with spouse, Sharifa Palafox .? Patient is retired.? Patient utilizes a walker to assist with ambulation.? Patient does not utilize home oxygen.? Patient currently on 3L nasal cannula.? Patient describes ability to complete ADL?s independently.? Patient identified spouse, Sharifa Palafox; as surrogate medical decision maker.? Patient?s PCP is Dr. Phelan.? Dr. Abad is the patient?s watermelon inspector.? Dr. Bustamante is the patient?s urologist.? Patient utilizes [facility] for medication services.? Plan is for the patient to discharge home.? If home oxygen required at the time of discharge, oncology social worker to submit order.? No preferred vendor identified.? Home health recommended by physical therapy.? Preferred agency is [facility].? Family will provide transportation on behalf of the patient.? No further discharge needs identified by the patient.? No further intervention required at this time, oncology social worker will be available to address any further concerns.? Next of Kin: Sharifa Palafox D/C Plan: Home
--- NOTE | 2025-05-26 15:11 | PD.RESCONSUL ---
HPI Data of Consult Requesting Physician: Preston Tidwell MD Admitting Provider: Preston Tidwell MD Attending Provider: Preston Tidwell MD Primary Care Provider: Darryn Phelan MD Consult Narrative History of present illness: This is a 79-year-old male with PMHx of recent hemorrhagic stroke, TIA, prostate cancer, A-fib on WARFARIN, HTN, HLD, T2DM, presented to the ED with abdominal pain, nausea and vomiting and shortness of breath. Who presented to our ED on 05/22/2025 with unilateral weakness and slurred speech, found to have a 13 mm acute hemorrhagic left basal ganglia stroke. He was transferred to [facility] and was managed medically. Reportedly his speech abnormality had resolved, ambulation is improved, and was discharged home today. At home, he was feeling nauseous and had several episodes of vomiting nonbloody stomach content. After which he was coughing and felt short of breath prompted him to come to the ED. Previous to this he was tolerating oral intake well. Last bowel movement was this morning consisted of small amount of normal, nonbloody stool.Denied new or worsening focal neurological deficits, fever, chills, headaches, visual disturbance, speech disturbances, chest pain, palpitations, abdominal pain, diarrhea, dysuria, hematuria, urinary urgency or frequency. 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 He is on WARFARIN therapy due to cost, which was held [facility] following hemorrhagic stroke. ED Course: Afebrile, BP 126/66, HR 88, standing 90% on room air. Negative influenza, and COVID. WBC 17.9 with left shift, Hgb and PLT WNL. Normal coag studies, INR 1.1.Blood gas showed no abnormalities. Creatinine 1.7 (baseline 1.3), eGFR 41 (baseline around 50s), GLUCOSE 244, lactic acid 2.5 > 1.7, AST 40, ALT 41, CRP 4.2, TSH 8.54, free T41.11. Urine negative for UTI. EKG shows sinus rhythm without acute ST changes. CXR showed minor subsegmental atelectasis of the right base. Prelim venous Doppler negative for lower extremity DVT bilaterally. Prelim CT abdomen showed small bowel obstruction with transition point in the left lower quadrant ECHO level of the distal ileum, moderate to marked prostamegaly, chronic bladder outlet obstruction with a few small bladder diverticuli. Prelim CT chest showed multi focal patchy infiltrates in the lung, likely multifocal pneumonia bilaterally. Prelim Head CT showed stable left thalamic hematoma, chronic small vessel ischemia, old infarct and volume loss. While in ED, he was given 2 L NS, METHYLPREDNISONE 125 mcg tablet, ANTIEMETICS, CLONIDINE 0.2 mg x 1, CEFEPIME, VANCOMYCIN, and DUONEB treatment. Started on BiPAP and was satting well. Past Medical History: As above. Past Surgical History: None. Allergies: NKDA FH: Noncontributory. SH: Denies alcohol, drug or tobacco use. home Medications: LEVOTHYROXINE 25 mg, LABETALOL 200 mg BID, AMLODIPINE 10 mg daily, WARFARIN 5 mg daily. 05/26/25: Patient was seen and examined at the bedside. we re consulted for patients hx of hemorrhagic stroke and has been on warfarin for A.fib. On 05/22 : Head CT shoed 13 mm acute hemorrhage left basal ganglia. on 05/25/[address] showed Stable 15 x 10 mm left thalamic hemorrhage with surrounding mild edema Tiny old infarcts in the right basal ganglia. Labs shows elevated wbc 15.3. Hgb 14.3. Chem showed BUN 18 and Cr 1.8 GFR [address] brain, therefore it is recommended to do MRI brain without contrast today reveals edema around hematoma in thalamic region in brain. Patient is denying any headache or new focal neurological deficit. Endorses nausea with vomiting and abdominal discomfort. Will follow-up with MRI brain results. Will repeat CT brain without contrast in next 48 hours. Recommended to hold off on warfarin and good control of blood pressure. cc:: cc: Preston Tidwell MD Review of Systems Review of Systems Systems Reviewed: All systems reviewed, normal except as documented Past Medical History Past Medical History NEUROLOGIC: Positive Neurological Disorders (TIA 2018) and Transient Ischemic Attacks (TIA) CARDIAC: Positive Cardiac Disorders, Atrial Fibrillation, Hypercholesterolemia and Hypertension; Negative Congestive Heart Failure RESPIRATORY: Negative Chronic Obstructive Pulmonary Disease (COPD) GASTROINTESTINAL: Negative Gastrointestinal Disorders or Hepatitis GENITOURINARY: Positive Prostate Cancer and Benign Prostatic Hyperplasia; Negative Genitourinary Disorders or Renal Disease MUSCULOSKELETAL: Positive Arthritis (Both feet); Negative Musculoskeletal Disorders ENDOCRINE: Positive Endocrine Disorders and Diabetes Mellitus Type 2; Negative Diabetes Mellitus Type 1 HEMATOLOGIC: Negative Blood Disorders OTHER HISTORY: Positive Prostate Cancer; Negative Hospitalization, Autoimmune Disease, Down Syndrome, Developmental Delay, Falls, Blood Transfusions, Anesthesia Reactions, MRSA, VRSA, Vancomycin-Resistant Enterococci, Human Immunodeficiency Virus (HIV), Chicken Pox, Measles, Mumps, Rubella (Swedish Measles), Pertussis or Clostridium Difficile Family History FAMILY HISTORY: Positive Family Cardiac Disorders and Family Cancer; Negative Family Psychiatric Problems, Family Respiratory Disorders, Family Gastrointestinal Problems, Family Surgery or Family Anesthesia Reaction Social History SMOKING STATUS: Former smoker Exam Vital Signs Temp Pulse Resp BP Pulse Ox O2 Del Method O2 Flow Rate 97.2 F 78 20 128/60 93 L Oxy Mask 4 05/26/25 12:00 05/26/25 12:00 05/26/25 12:00 05/26/25 12:00 05/26/25 12:00 05/26/25 12:05/26/25 12:00 FiO2 35 05/26/25 05:07 Narrative Exam GENERAL APPEARANCE: AxOx4, generally well-appearing male in no acute distress. NG tube in place HEENT: NC, AT. MMM. EOMI, clear conjunctiva, oropharynx clear. NECK: Supple without lymphadenopathy. No stiffness or restricted ROM. HEART: Regular rate and regular rhythm, normal S1/S2, no m/r/g LUNGS: CTAB, moving air well. No crackles or wheezes are heard. GI: Distended, slightly tense abdomen.Tenderness present in left lower quadrant. Bowel sounds decreased but presents. BACK: No CVAT, no obvious deformity. EXTREMITIES: Without cyanosis, clubbing or edema. NEUROLOGICAL: Grossly nonfocal. Alert and oriented, moving all 4 extremities. CN not formally tested but appear grossly intact. Observed to ambulate with normal gait. Skin: Warm and dry without any rash. Psych: Appropriate mood and affect Results Labs 05/26/25 04:50 05/26/25 04:50 Labs: Short CBC 05/25/25 05/26/25 Range/Units 23:10 04:50 WBC 17.9 H D 15.3 H (3.8-10.6) Thou/mm3 Hgb 15.5 14.3 (13.5-16.0) g/dL Hct 46.1 43.3 (41.0-53.0) % Plt Count 329 D 278 D (140-440) Thou/mm3 BMP 05/25/25 05/26/25 23:10 04:50 Sodium 137 137 Potassium 4.7 4.7 Chloride 102 105 Carbon Dioxide 22.6 21.5 BUN 21 18 Creatinine 1.7 H 1.8 H Glucose 244 H 343 H D Calcium 10.2 9.3 Cardiac Enzymes 05/25/25 Range/Units 23:10 Troponin I < 0.020 (0.0-0.045) ng/mL Liver Function 05/25/25 05/26/25 Range/Units 23:10 04:50 Total Bilirubin 1.0 1.4 H (0.3-1.2) mg/dL Direct Bilirubin 0.3 (0.0-0.3) mg/dL AST 40 H 30 (0-34) U/L ALT 41 41 (10-49) U/L Alkaline Phosphatase 67 56 (46-116) U/L Albumin 4.5 3.9 D (3.4-4.8) gm/dL Urine 05/26/25 Range/Units 00:30 Urine Color Yellow (Lt Yel-Yel) Urine Clarity Clear (Clear/Hazy) Urine pH 5.5 (5.0-7.0) Ur Specific [place] 1.023 (1.001-1.035) Urine Protein 1+ A (Neg - Trace) Urine Glucose (UA) Trace (Negative) ABG Interpretation ABG results: 05/25/25 23:10 ABG pH 7.44 ABG pCO2 34 ABG pO2 106 ABG HCO3 23 ABG O2 Saturation 97 ABG Base Excess -1 Quality Measures Quality Measures none Advance care planning discussed with:: other Medications Home Medications and Allergies Home Medications ?Medication ?Instructions ?Recorded ?Confirmed ?Type metformin 500 mg tablet 500 mg PO BID 08/29/18 05/26/25 History levothyroxine 25 mcg capsule 50 mcg PO QDAY 07/16/19 05/26/25 History lisinopril 20 mg tablet 20 mg PO QDAY 07/16/19 05/26/25 History tamsulosin 0.4 mg capsule 0.4 mg PO QHS 11/01/20 05/26/25 History tadalafil 5 mg tablet (Cialis) 5 mg PO QDAY 05/08/22 05/26/25 History warfarin 5 mg tablet 5 mg PO QMWF 04/05/23 05/26/25 History amlodipine 10 mg tablet 10 mg PO .QD 05/26/25 05/26/25 History glimepiride 2 mg tablet 2 mg PO QDAY 05/26/25 05/26/25 History labetalol 200 mg tablet 200 mg PO QDAY 05/26/25 05/26/25 History pravastatin 40 mg tablet 40 mg PO QDAY 05/26/25 05/26/25 History Allergies Allergy/AdvReac Type Severity Reaction Status Date / Time No Known Allergies Allergy Verified 05/21/25 08:56 Visit Medications Acetaminophen (Acetaminophen 325 Mg Tablet) 650 mg NG Q6H PRN PRN Reason: Fever >100.4 Stop: 06/25/25 03:32 Albuterol/Ipratropium (Albuterol/Ipratropium (Duoneb) Rt Stefany 3 Ml Nebu) 3 ml INH Q6HRRT PRN PRN Reason: Wheezing Stop: 06/25/25 04:07 Amlodipine Besylate (Amlodipine Besylate 5 Mg Tablet) 10 mg PO QDAY MARTHA Stop: 06/25/25 08:59 Last Admin: 05/26/25 08:53 Dose: Not Given Atorvastatin Calcium (Atorvastatin Calcium 20 Mg Tablet) 40 mg NG HS MARTHA Stop: 06/25/25 20:59 Dextrose (Dextrose 50%-Water Inj 50 Ml Syringe) 25 ml IV Q15MIN PRN PRN Reason: BG 50-70 responsive npo pt Stop: 06/25/25 03:37 Dextrose (Dextrose 50%-Water Inj 50 Ml Syringe) 50 ml IV Q15MIN PRN PRN Reason: BG <50 OR BG <70 & pt unresponsive Stop: 06/25/25 03:37 Glucagon (Glucagon Inj 1 Mg Vial) 1 mg IM Q15MIN PRN PRN Reason: BG <70, and no IV access Sodium Chloride (Ns) 1,000 mls @ 80 mls/hr IV .[id number] MARTHA Stop: 05/26/25 16:14 Last Admin: 05/26/25 04:23 Dose: 80 mls/hr Piperacillin/Tazobactam/Dextrose (Zosyn) 3.375 gm in 50 mls @ 12.5 mls/hr IV Q6HR MARTHA; Protocol Stop: 06/02/25 03:42 Last Admin: 05/26/25 11:52 Dose: 12.5 mls/hr Doxycycline Hyclate 100 mg/ (Sodium Chloride) 100 mls @ 100 mls/hr IV BID MARTHA Stop: 06/02/25 08:59 Last Admin: 05/26/25 09:03 Dose: 100 mls/hr Insulin Human Lispro (Insulin Lispro (Admelog) 1 Unit/0.01 Ml Unit) 0 unit SC Q6HR MARTHA; Protocol Stop: 06/25/25 06:29 Last Admin: 05/26/25 11:53 Dose: 5 unit Insulin Human Lispro (Insulin Lispro (Admelog) 1 Unit/0.01 Ml Unit) 10 unit SC X1 ONE Stop: 05/26/25 15:08 Labetalol HCl (Labetalol Inj 5 Mg/Ml Vial 20 Ml) 10 mg IVP Q2H PRN PRN Reason: SBP>160 Stop: 06/25/25 03:37 Levothyroxine Sodium (Levothyroxine Inj 100 Mcg Vial) 15 mcg IV QDAY MARTHA Stop: 06/25/25 08:59 Last Admin: 05/26/25 09:03 Dose: 15 mcg Morphine Sulfate (Morphine Sulf Inj 4 Mg/Ml Vial) 2 mg IVP Q4HR PRN PRN Reason: Pain 4-10 Stop: 05/31/25 03:32 Ondansetron HCl (Ondansetron Inj 2 Mg/Ml Inj 2 Ml) 4 mg IVP Q6H PRN; Protocol PRN Reason: NAUSEA OR VOMITING Stop: 06/25/25 03:32 Pantoprazole Sodium (Pantoprazole Inj 40 Mg Vial) 40 mg IVP QDAY [facility] Stop: 06/25/25 08:59 Last Admin: 05/26/25 09:02 Dose: 40 mg Discontinued Medications Albuterol/Ipratropium (Albuterol/Ipratropium (Duoneb) Rt Stefany 3 Ml Nebu) 3 ml INH X1 ONE Stop: 05/25/25 23:03 Last Admin: 05/25/25 23:15 Dose: 3 ml Clonidine (Clonidine Hcl 0.1 Mg Tablet) 0.2 mg PO X1 ONE Stop: 05/26/25 01:55 Last Admin: 05/26/25 01:59 Dose: 0.2 mg Sodium Chloride (Ns) 1,000 mls @ 999 mls/hr IV .Q1H1M ONE Stop: 05/26/25 00:02 Last Infusion: 05/26/25 00:50 Dose: Infused Cefepime HCl 2 gm/ Sodium (Chloride) 50 mls @ 100 mls/hr IV X1 ONE Stop: 05/26/25 03:24 Last Infusion: 05/26/25 04:20 Dose: Infused Vancomycin HCl 2,000 mg/ (Sodium Chloride) 500 mls @ 150 mls/hr IV X1 ONE Stop: 05/26/25 06:14 Last Admin: 05/26/25 07:41 Dose: Not Given Sodium Chloride (Ns) 1,000 mls @ 999 mls/hr IV .Q1H1M ONE Stop: 05/26/25 03:55 Last Admin: 05/26/25 03:49 Dose: 999 mls/hr Magnesium Sulfate (Magnesium Sulfate Ivpb) 2 gm in 50 mls @ 25 mls/hr IV X1 ONE Stop: 05/26/25 10:12 Last Admin: 05/26/25 09:02 Dose: 25 mls/hr Insulin Human Lispro (Insulin Lispro (Admelog) 1 Unit/0.01 Ml Unit) 0 unit SC ACHS MARTHA; Protocol Stop: 06/25/25 07:29 Insulin Human Lispro (Insulin Lispro (Admelog) 1 Unit/0.01 Ml Unit) 0 unit SC Q6HR MARTHA; Protocol Stop: 06/25/25 06:29 Last Admin: 05/26/25 06:25 Dose: 4 unit Insulin Human Lispro (Insulin Lispro (Admelog) 1 Unit/0.01 Ml Unit) 5 unit SC X1 ONE Stop: 05/26/25 07:01 Last Admin: 05/26/25 07:41 Dose: Not Given Labetalol HCl (Labetalol Inj 5 Mg/Ml Vial 20 Ml) 10 mg IVP Q2H PRN PRN Reason: SBP>140 Stop: 06/25/25 03:37 Methylprednisolone Sodium Succinate (Methylprednisolone Sod Succ 62.5 Mg/Ml 2ml Vial) 125 mg IVP X1 ONE Stop: 05/25/25 23:03 Last Admin: 05/25/25 23:33 Dose: 125 mg Ondansetron HCl (Ondansetron Inj 2 Mg/Ml Inj 2 Ml) 4 mg IVP X1 ONE; Protocol Stop: 05/25/25 23:03 Last Admin: 05/25/25 23:32 Dose: Not Given Assessment & Plan Plan This is a 79-year-old male with PMHx of recent hemorrhagic stroke, TIA, prostate cancer, A-fib on WARFARIN, HTN, HLD, T2DM, presented to the ED with abdominal pain, nausea and vomiting and shortness of breath. Admitted for acute hypoxemic respiratory failure 2/2 likely aspiration pneumonia 2/2 vomiting in settings of SBO. #Recent hemorrhagic stroke in thalamic region with edema #Atrial fibrillation (likely paroxysmal) on WARFARIN #Hypertension #Hyperlipidemia On 05/22/2025, he had a 13 mm acute infarct of the left basal ganglia and was managed medically at [facility], WARFARIN was held appropriately, and was discharged today after symptoms improved. Repeat head CT on this admission showed no worsening hemorrhagic stroke, and no focal neurological deficits on exam. EKG shows sinus rhythm without acute ST changes, HR controlled. Target BP systolic less than 140. on 05/22 : Head CT shoed 13 mm acute hemorrhage left basal ganglia. on 05/25/[address] showed Stable 15 x 10 mm left thalamic hemorrhage with surrounding mild edema Tiny old infarcts in the right basal ganglia. Labs shows elevated wbc 15.3. Hgb 14.3. 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 Plan of care discussed with Neurologist,Dr Carlos Mckay MD PGY3
--- NOTE | 2025-05-26 15:13 | XR_ITS ---
Examination: MRI brain without intravenous contrast. Date and time of exam: October 26, 2024, 1718 hrs., Comparison August 31, 2018 Indications: History left parietal lobe hemorrhage, stroke, 15 mm left thalamic hemorrhage on CT brain scan 2024. Technique: Multiple axial and sagittal images of the brain obtained. Siemens high-resolution 1.5 Deepika short bore scanners utilized. Sagittal sections, T1-weighted, TR 500, TE 14, are performed. Axial sections proton-density and T2-weighted have been obtained. Inversion recovery axial images, TR 9, 260, TE 111, TI 2500. Diffusion weighted images, axial sections, TR 4800, TE 128, B value 1000 Axial sections, ADC map, TR 4800, TE 128 Findings: Enlargement of the sella turcica is not present. The optic chiasm and infundibular are not remarkable. Prepontine and interpeduncular cisterns are not enlarged. There is no localized enlargement of the medulla or angel. Fourth ventricle and cerebellar tonsils appear normal in position. No subacute area of hemorrhage density is seen. Mass in the cerebellopontine angle region is not evident. Globes symmetrical. Orbital musculature including medial lateral rectus muscles do not exhibit abnormality. Diffusion-weighted images demonstrate 13 mm left thalamic hemorrhage with minimal rim-like restricted diffusion. Increased white matter signal prominent Mass effect upon the ventricular system is not identified. Impression: 15 mm left thalamic infarct No significant mass effect Prominent chronic microvascular white matter change
[2025-05-26] MEDS: INSULIN LISPRO (AdmeLOG) 1 UNIT/0.01 ML UNIT 10 UNIT SC (15:42)
--- NOTE | 2025-05-26 16:23 | ESCONSULT_ITS ---
<Statement entered by Leelee Morales MD - 06/05/25 14:19> I will definitely hold off anticoagulation at least for a month [id number] score is high however bleeding risk is high subsequently discussed the options of Watchman procedure versus cautious anticoagulation after 1 month. Will continue to monitor patient on telemetry with primary team. HPI Data of Consult Consult date: 05/26/25 Requesting Physician: Preston Tidwell MD Admitting Provider: Preston Tidwell MD Attending Provider: Leelee Morales MD Primary Care Provider: Darryn Phelan MD Consult Narrative Reason for consult: Atrial fibrillation on Warfarin History of present illness: 79-year-old male with past medical history of TIA, prostate cancer, atrial fibrillation on warfarin, hypertension, hyperlipidemia, type 2 diabetes, recent emergency room visit for hemorrhagic stroke who came to the ED due to abdominal pain nausea vomiting with associated shortness of breath. On May 22, 2025 patient came to the ED due to unilateral weakness and slurred speech was found to have a 13 mm acute hemorrhagic left basal ganglia stroke and was transferred to [facility]. Patient had no surgical intervention at that time and was managed medically. Patient later came to [facility] and was found to have abdominal pain nausea vomiting and was admitted to the hospital for acute hypoxic respiratory failure likely secondary to aspiration pneumonia as well as possible small bowel obstruction. Cardiology was consulted for management of atrial fibrillation in the setting of warfarin use. ED course: Vitals BP 126/66, HR 88, saturating 90% on room air. Labs significant for some left shift leukocytosis rest of labs unremarkable at this time. EKG with sinus rhythm. Chest x-ray shows some infiltrates in the right base likely aspiration pneumonia. Imaging was done with no evidence of DVT or PE. PMHx: As above SX Hx: None Social Hx: Denies alcohol use, denies cigarette use, denies illicit substances including THC FH X: Unknown Cardiology consulted for management of A-fib. cc:: cc: Preston Tidwell MD Review of Systems Review of Systems Systems Reviewed: All systems reviewed, normal except as documented Exam Vital Signs Temp Pulse Resp BP Pulse Ox O2 Del Method O2 Flow Rate 97.2 F 78 20 128/60 93 L Oxy Mask 4 05/26/25 12:00 05/26/25 12:05/26/25 12:05/26/25 12:00 05/26/25 12:00 05/26/25 12:00 05/26/25 12:00 FiO2 35 05/26/25 05:07 Narrative Exam Physical Exam GENERAL: NAD, AAOx3 HEENT: Moist mucosa. Eyes open, symmetrical, & clear, NG tube noted, on oxy mask 3 L CARDIO: Heart RRR, no obvious murmurs PULM: No noted coughing/dyspnea CTA B/L, no R/W/R GI: Abdomen soft, mild distention, no pain on palpation. SKIN/MSK/EXT: no pain on palpation. Pedal pulses present B/L NEURO: AAOx3, mild weakness on the right side of upper and lower extremities. Results Labs 05/26/25 04:50 05/26/25 04:50 Labs: Short CBC 05/25/25 05/26/25 Range/Units 23:10 04:50 WBC 17.9 H D 15.3 H (3.8-10.6) Thou/mm3 Hgb 15.5 14.3 (13.5-16.0) g/dL Hct 46.1 43.3 (41.0-53.0) % Plt Count 329 D 278 D (140-440) Thou/mm3 BMP 05/25/25 05/26/25 23:10 04:50 Sodium 137 137 Potassium 4.7 4.7 Chloride 102 105 Carbon Dioxide 22.6 21.5 BUN 21 18 Creatinine 1.7 H 1.8 H Glucose 244 H 343 H D Calcium 10.2 9.3 Cardiac Enzymes 05/25/25 Range/Units 23:10 Troponin I < 0.020 (0.0-0.045) ng/mL Liver Function 05/25/25 05/26/25 Range/Units 23:10 04:50 Total Bilirubin 1.0 1.4 H (0.3-1.2) mg/dL Direct Bilirubin 0.3 (0.0-0.3) mg/dL AST 40 H 30 (0-34) U/L ALT 41 41 (10-49) U/L Alkaline Phosphatase 67 56 (46-116) U/L Albumin 4.5 3.9 D (3.4-4.8) gm/dL Urine 05/26/25 Range/Units 00:30 Urine Color Yellow (Lt Yel-Yel) Urine Clarity Clear (Clear/Hazy) Urine pH 5.5 (5.0-7.0) Ur Specific Baldwin 1.023 (1.001-1.035) Urine Protein 1+ A (Neg - Trace) Urine Glucose (UA) Trace (Negative) ABG Interpretation ABG results: 05/25/25 23:10 ABG pH 7.44 ABG pCO2 34 ABG pO2 106 ABG HCO3 23 ABG O2 Saturation 97 ABG Base Excess -1 Quality Measures Quality Measures none Advance care planning discussed with:: patient Medications Home Medications and Allergies Home Medications ?Medication ?Instructions ?Recorded ?Confirmed ?Type metformin 500 mg tablet 500 mg PO BID 08/29/1805/26 History levothyroxine 25 mcg capsule 50 mcg PO QDAY 07/16/19 0 05/26/25 History lisinopril 20 mg tablet 20 mg PO QDAY 07/16/1905/26 History tamsulosin 0.4 mg capsule 0.4 mg PO QHS 11/01/2005/26 History tadalafil 5 mg tablet (Cialis) 5 mg PO QDAY 05/08/22 0 05/26/25 History warfarin 5 mg tablet 5 mg PO QMWF 04/05/23 History amlodipine 10 mg tablet 10 mg PO .QD 05/26/25 History glimepiride 2 mg tablet 2 mg PO QDAY 05/26/25 History labetalol 200 mg tablet 200 mg PO QDAY 05/26/2505/17 History pravastatin 40 mg tablet 40 mg PO QDAY 05/26/2505/26 History Allergies Allergy/AdvReac Type Severity Reaction Status Date / Time No Known Allergies Allergy Verified 05/21/25 08:56 Visit Medications Acetaminophen (Acetaminophen 325 Mg Tablet) 650 mg NG Q6H PRN PRN Reason: Fever >100.4 Stop: 06/25/25 03:32 Albuterol/Ipratropium (Albuterol/Ipratropium (Duoneb) Rt Stefayn 3 Ml Nebu) 3 ml INH Q6HRRT PRN PRN Reason: Wheezing Stop: 06/25/25 04:07 Amlodipine Besylate (Amlodipine Besylate 5 Mg Tablet) 10 mg PO QDAY MARTHA Stop: 06/25/25 08:59 Last Admin: 05/26/25 08:53 Dose: Not Given Atorvastatin Calcium (Atorvastatin Calcium 20 Mg Tablet) 40 mg NG HS MARTHA Stop: 06/25/25 20:59 Dextrose (Dextrose 50%-Water Inj 50 Ml Syringe) 25 ml IV Q15MIN PRN PRN Reason: BG 50-70 responsive npo pt Stop: 06/25/25 03:37 Dextrose (Dextrose 50%-Water Inj 50 Ml Syringe) 50 ml IV Q15MIN PRN PRN Reason: BG <50 OR BG <70 & pt unresponsive Stop: 06/25/25 03:37 Glucagon (Glucagon Inj 1 Mg Vial) 1 mg IM Q15MIN PRN PRN Reason: BG <70, and no IV access Piperacillin/Tazobactam/Dextrose (Zosyn) 3.375 gm in 50 mls @ 12.5 mls/hr IV Q6HR MARTHA; Protocol Stop: 06/02/25 03:42 Last Admin: 05/26/25 11:52 Dose: 12.5 mls/hr Doxycycline Hyclate 100 mg/ (Sodium Chloride) 100 mls @ 100 mls/hr IV BID [facility] Stop: 06/02/25 08:59 Last Admin: 05/26/25 09:03 Dose: 100 mls/hr Insulin Human Lispro (Insulin Lispro (Admelog) 1 Unit/0.01 Ml Unit) 0 unit SC Q6HR MARTHA; Protocol Stop: 06/25/25 06:29 Last Admin: 05/26/25 11:53 Dose: 5 unit Labetalol HCl (Labetalol Inj 5 Mg/Ml Vial 20 Ml) 10 mg IVP Q2H PRN PRN Reason: SBP>160 Stop: 06/25/25 03:37 Levothyroxine Sodium (Levothyroxine Inj 100 Mcg Vial) 15 mcg IV QDAY MARTHA Stop: 06/25/25 08:59 Last Admin: 05/26/25 09:03 Dose: 15 mcg Morphine Sulfate (Morphine Sulf Inj 4 Mg/Ml Vial) 2 mg IVP Q4HR PRN PRN Reason: Pain 4-10 Stop: 05/31/25 03:32 Ondansetron HCl (Ondansetron Inj 2 Mg/Ml Inj 2 Ml) 4 mg IVP Q6H PRN; Protocol PRN Reason: NAUSEA OR VOMITING Stop: 06/25/25 03:32 Pantoprazole Sodium (Pantoprazole Inj 40 Mg Vial) 40 mg IVP QDAY MARTHA Stop: 06/25/25 08:59 Last Admin: 05/26/25 09:02 Dose: 40 mg Discontinued Medications Albuterol/Ipratropium (Albuterol/Ipratropium (Duoneb) Rt Stefany 3 Ml Nebu) 3 ml INH X1 ONE Stop: 05/25/25 23:03 Last Admin: 05/25/25 23:15 Dose: 3 ml Clonidine (Clonidine Hcl 0.1 Mg Tablet) 0.2 mg PO X1 ONE Stop: 05/26/25 01:55 Last Admin: 05/26/25 01:59 Dose: 0.2 mg Sodium Chloride (Ns) 1,000 mls @ 999 mls/hr IV .Q1H1M ONE Stop: 05/26/25 00:02 Last Infusion: 05/26/25 00:50 Dose: Infused Cefepime HCl 2 gm/ Sodium (Chloride) 50 mls @ 100 mls/hr IV X1 ONE Stop: 05/26/25 03:24 Last Infusion: 05/26/25 04:20 Dose: Infused Vancomycin HCl 2,000 mg/ (Sodium Chloride) 500 mls @ 150 mls/hr IV X1 ONE Stop: 05/26/25 06:14 Last Admin: 05/26/25 07:41 Dose: Not Given Sodium Chloride (Ns) 1,000 mls @ 999 mls/hr IV .Q1H1M ONE Stop: 05/26/25 03:55 Last Admin: 05/26/25 03:49 Dose: 999 mls/hr Sodium Chloride (Ns) 1,000 mls @ 80 mls/hr IV .[id number] [facility] Stop: 05/26/25 16:14 Last Admin: 05/26/25 04:23 Dose: 80 mls/hr Magnesium Sulfate (Magnesium Sulfate Ivpb) 2 gm in 50 mls @ 25 mls/hr IV X1 ONE Stop: 05/26/25 10:12 Last Admin: 05/26/25 09:02 Dose: 25 mls/hr Insulin Human Lispro (Insulin Lispro (Admelog) 1 Unit/0.01 Ml Unit) 0 unit SC ACHS [facility]; Protocol Stop: 06/25/25 07:29 Insulin Human Lispro (Insulin Lispro (Admelog) 1 Unit/0.01 Ml Unit) 0 unit SC Q6HR MARTHA; Protocol Stop: 06/25/25 06:29 Last Admin: 05/26/25 06:25 Dose: 4 unit Insulin Human Lispro (Insulin Lispro (Admelog) 1 Unit/0.01 Ml Unit) 5 unit SC X1 ONE Stop: 05/26/25 07:01 Last Admin: 05/26/25 07:41 Dose: Not Given Insulin Human Lispro (Insulin Lispro (Admelog) 1 Unit/0.01 Ml Unit) 10 unit SC X1 ONE Stop: 05/26/25 15:08 Last Admin: 05/26/25 15:42 Dose: 10 unit Labetalol HCl (Labetalol Inj 5 Mg/Ml Vial 20 Ml) 10 mg IVP Q2H PRN PRN Reason: SBP>140 Stop: 06/25/25 03:37 Methylprednisolone Sodium Succinate (Methylprednisolone Sod Succ 62.5 Mg/Ml 2ml Vial) 125 mg IVP X1 ONE Stop: 05/25/25 23:03 Last Admin: 05/25/25 23:33 Dose: 125 mg Ondansetron HCl (Ondansetron Inj 2 Mg/Ml Inj 2 Ml) 4 mg IVP X1 ONE; Protocol Stop: 05/25/25 23:03 Last Admin: 05/25/25 23:32 Dose: Not Given Assessment & Plan Plan 79-year-old male with past medical history of TIA, prostate cancer, atrial fibrillation on warfarin, hypertension, hyperlipidemia, type 2 diabetes, recent emergency room visit for hemorrhagic stroke who came to the ED due to abdominal pain nausea vomiting with associated shortness of breath. Admitted for AHRF secondary to aspiratoin pneumonia and SBO. Cardiology consulted for management of Afib on warfarin. #Paroxysmal Atrial fibrillation #Recent Hemorrhagic stroke in thalamic region with edema-stable #Hypertension #Hyperlipidemia May 22, 2025 had ER visit due to new onset weakness, slurred speech and found to have left basal ganglia hemorrhage 13mm evidenced on CT scan. Patient was subsequently transferred to [facility] was managed medically and discharged. Patient was on Warfarin for management of Atrial Fibrillation which was appropriately held and reversed. This admission showed no worsening of hemorrhagic stroke; 05/25/[address] showed Stable 15 x 10 mm left thalamic hemorrhage with surrounding mild edema Tiny old infarcts in the right basal ganglia. EKG showed sinus rhythm at this time CHADVASC score: 6; 9.7% stroke risk per year, patient requires to be on anti- coagulation however given the recent head bleed will hold off at this time. ? Hold warfarin indefinitely as patient has already had hemorrhagic stroke ? Hold anticoagulation at least for 1 month, as long as patient does not convert to afib ? Will start the patient on Eliquis as an outpatient basis after brain hemorrhage has resolved and evidenced by repeat CT scans. ? Patient currently in sinus rhythm will monitor telemetry closely for any episodes of atrial fibrillation especially with RVR. ? Keep K>4, Mg>2 #Small bowel obstruction #Prerenal NEELA on CKD #Hypothyroidism #T2DM #Prostate cancer #Acute hypoxemic respiratory failure #Pneumonia, likely aspiration #Lactic acidosis (resolved) Rest of medical problems as per Primary care team. Case discussed with my attending Dr. Andrew Winkler MD PGY-2 Disclaimer: Despite multiple revisions, due to the dictation software being used, the document bellow may not be free of grammatical errors including phonetic/typographic errors. However, this does not deter from our commitment to providing health care in the patient's best interest in mind.
--- NOTE | 2025-05-26 16:47 | PC.CM ---
Patient is opened to [facility]. He will need new orders if patient discharged to home.
[2025-05-26] MEDS: ATORVASTATIN CALCIUM 20 MG TABLET 40 MG NG (21:31)
[2025-05-27] VITALS (10 sets, daily range): BP systolic 113–122; BP diastolic 63–73; PULSE 75–101; RESP 11–23; TEMP 36.2–36.9; O2SAT 90–95; BMI 29.0
[2025-05-27] MEDS: INSULIN LISPRO (AdmeLOG) 1 UNIT/0.01 ML UNIT SC ×5 (00:34→20:47)
[2025-05-27] MEDS: PIPER/TAZO 3.375 GM PREMIX 3.375 GM/50 ML BAG IV ×4 (00:34→17:30)
[2025-05-27 05:50] LABS: Basophils # (Auto) 0.0 Thou/mm3 (0.0-0.2); Basophils % (Auto) 0 % (0-2.5); Eosinophils # (Auto) 0.0 Thou/mm3 (0.0-0.5); Eosinophils % (Auto) 0 % (0-10); Hematocrit 38.2 % (41.0-53.0); Hemoglobin 12.6 g/dL (13.5-16.0); Immature Granulocytes Auto 0.07 Thou/mm3 (0.00-0.00); Lymphocytes # (Auto) 0.7 Thou/mm3 (1.0-4.8); Lymphocytes % (Auto) 5 % (10-50); Mean Corpuscular HGB Conc 33.0 g/dl (31.0-37.0); Mean Corpuscular Hemoglobin 28.3 pg (25.0-35.0); Mean Corpuscular Volume 86 fL (80-100); Monocytes # (Auto) 1.0 Thou/mm3 (0.0-0.8); Monocytes % (Auto) 7 % (0-12); Neutrophils # (Auto) 12.8 Thou/mm3 (1.8-7.7); Neutrophils % (Auto) 88 % (37-80); Nucleated Red Blood Cell # 0.00 Thou/mm3 (0.00-0.00); Nucleated Red Blood Cell % 0 /100 WBC (0); Platelet Count 270 Thou/mm3 (140-440); RDW Standard Deviation 46.7 fL (35.1-43.9); Red Blood Count 4.46 Miln/mm3 (4.50-5.90); White Blood Count 14.6 Thou/mm3 (3.8-10.6)
[2025-05-27 06:07] LABS: Alanine Aminotransferase 24 U/L (10-49); Albumin, Serum 3.8 gm/dL (3.4-4.8); Albumin/Globulin Ratio 1.6 (1.2-2.2); Alkaline Phosphatase 45 U/L (46-116); Anion Gap 12 (7-16); Aspartate Amino Transferase 12 U/L (0-34); BUN/Creatinine Ratio 15 Ratio (12-20); Bilirubin,Total 1.2 mg/dL (0.3-1.2); Blood Urea Nitrogen 24 mg/dL (9-23); Calcium 9.1 mg/dL (8.3-10.6); Calcium (Corrected) 9.3 mg/dL (8.5-10.1); Carbon Dioxide 23.2 mMol/L (20.0-31.0); Chloride 107 mMol/L (98-107); Creatinine (Component) 1.6 mg/dL (0.6-1.3); Estimated Creatinine Clearance 47.3 mL/min (>60); Globulin 2.4 gm/dL (2.3-3.5); Glucose 189 mg/dL (74-106); Magnesium 2.3 mg/dL (1.6-2.6); Osmolality,Calculated 292 (275-295); Phosphorous 3.6 mg/dL (2.4-5.1); Potassium 4.4 mMol/L (3.4-5.1); Sodium 142 mMol/L (136-145); Total Protein 6.2 gm/dL (5.7-8.2); eGFR 44 See Note
[2025-05-27] MEDS: DOXYCYCLINE INJ 100 MG in SODIUM CHLORIDE 0.9% (POP) 100 ML IV ×2 (09:37→20:44)
--- NOTE | 2025-05-27 09:49 | XR_ITS ---
Examination: Abdomen AP single view Technique: AP portable supine abdomen, single view Exam date and time: May 27, 2025, 10:42 AM INDICATIONS: Abdominal pain and distention this week FINDINGS: Contrast throughout the colon IMPRESSION: Negative for complete small bowel obstruction
--- NOTE | 2025-05-27 11:43 | ESPR_ITS ---
<Statement entered by Zain Velez MD - 06/07/25 09:06> I reviewed above note and agree with findings and plans. I have also personally examined the patient with medicine team and went over assessment and plan with medical team including web design intern and resident physician. <Statement entered by Devendra Escalante MD - 05/27/25 16:39> No acute overnight events. Seen and examined at bedside and patient denies any abdominal pain, nausea, vomiting. At bedside he states that he has been passing gas and was told by nursing staff in early afternoon that patient had a large bowel movement. Thus, will DC NG tube and start a clear liquid diet and advance as tolerated. You continues to be on supplemental oxygen secondary to likely aspiration event and will continue Zosyn and doxycycline. Otherwise, we will continue to monitor and anticipate discharge within next 24 to 48 hours. ----- Note reviewed and agree with care plan as documented. Please refer to the note below for further details. Plan discussed with attending physician Dr. Agustin Escalante MD PGY-2 Internal Medicine Documentation for date of: 05/27/25 Subjective Subjective Interval history: Patient seen and examined at bedside. Patient has had 1 bowel movements since yesterday. Will advance diet and DC NG tube. PT ordered. Creatinine trending down. WBC trending down. MRI of the brain showed a 15 mm left thalamic infarct. Neurology is on board. They recommend evaluation with repeat CT without contrast. Exam Vital Signs Temp Pulse Resp BP Pulse Ox O2 Del Method O2 Flow Rate 97.2 F 87 19 113/73 92 L Nasal Cannula 4 05/27/25 08:00 05/27/25 08:00 05/27/25 08:00 05/27/25 08:00 05/27/25 08:00 05/27/25 08:00 05/27/25 08:00 FiO2 35 05/26/25 05:07 Narrative Exam General: No acute distress. Neurologic: GCS 15. Alert and oriented x3, no gross neurological deficit, and patient able to move all 4 extremities. HEENT: Normocephalic, atraumatic, mucous membranes moist. Pupils reactive to light. Heart: Regular rate and rhythm, normal S1 and S2, no murmurs. Lungs: Nasal cannula at 3 L, decreased breath sounds in the bases, CTAB in the upper lobes bilaterally. Abdomen: Improving distention, umbilical hernia, nontender to palpation. Extremities: No edema. 2+ radial and dorsalis pedis pulses bilaterally. Skin: Warm. Dry. No rash or ecchymoses. Objective Labs 05/27/25 04:31 05/27/25 04:31 Labs: Laboratory Results - last 24 hr 05/27/25 04:31 WBC 14.6 H RBC 4.46 L Hgb 12.6 L Hct 38.2 L MCV 86 MCH 28.3 MCHC 33.0 RDW Std Deviation 46.7 H Plt Count 270 Neut % (Auto) 88 H Lymph % (Auto) 5 L Stanton % (Auto) 7 Eos % (Auto) 0 Baso % (Auto) 0 Neut # (Auto) 12.8 H Lymph # (Auto) 0.7 L Stanton # (Auto) 1.0 H Eos # (Auto) 0.0 Baso # (Auto) 0.0 Immature Gran # (Auto) 0.07 H Absolute Nucleated RBC 0.00 Immature Gran % 1 H Nucleated RBC % 0 Sodium 142 Potassium 4.4 Chloride 107 Carbon Dioxide 23.2 Anion Gap 12 BUN 24 H Creatinine 1.6 H Estim Creat Clear Calc 47.3 L eGFR 44 L BUN/Creatinine Ratio 15 Glucose 189 H D Calculated Osmolality 292 Calcium 9.1 Corrected Calcium 9.3 Phosphorus 3.6 Magnesium 2.3 Total Bilirubin 1.2 AST 12 ALT 24 Alkaline Phosphatase 45 L Total Protein 6.2 Albumin 3.8 Globulin 2.4 Albumin/Globulin Ratio 1.6 ABG Interpretation ABG results: 05/25/25 23:10 ABG pH 7.44 ABG pCO2 34 ABG pO2 106 ABG HCO3 23 ABG O2 Saturation 97 ABG Base Excess -1 Quality Measures Quality Measures none Advance care planning discussed with:: patient Assessment & Plan Assessment Current Active Medications: Generic Name Dose Route Start Last Admin Trade Name Freq PRN Reason Stop Dose Admin Acetaminophen 650 mg 05/26/25 03:33 Acetaminophen 325 Mg Tablet NG 06/25/25 03:32 Q6H PRN Fever >100.4 Albuterol/Ipratropium 3 ml 05/26/25 04:08 Albuterol/Ipratropium (Duoneb) Rt Stefany 3 Ml Nebu INH 06/25/25 04:07 Q6HRRT PRN Wheezing Amlodipine Besylate 10 mg 05/26/25 09:00 05/27/25 09:37 Amlodipine Besylate 5 Mg Tablet PO 06/25/25 08:59 Not Given QDAY MARTHA Atorvastatin Calcium 40 mg 05/26/25 21:00 05/26/25 21:31 Atorvastatin Calcium 20 Mg Tablet NG 06/25/25 20:59 40 mg HS MARTHA Administration Dextrose 25 ml 05/26/25 03:38 Dextrose 50%-Water Inj 50 Ml Syringe IV 06/25/25 03:37 Q15MIN PRN BG 50-70 responsive npo pt Dextrose 50 ml 05/26/25 03:38 Dextrose 50%-Water Inj 50 Ml Syringe IV 06/25/25 03:37 Q15MIN PRN BG <50 OR BG <70 & pt unresponsive Glucagon 1 mg 05/26/25 03:38 Glucagon Inj 1 Mg Vial IM Q15MIN PRN BG <70, and no IV access Piperacillin/Tazobactam/Dextrose 3.375 gm in 50 mls @ 12.5 mls/hr 05/26/25 03:43 05/27/25 11:15 Zosyn IV 06/02/25 03:42 12.5 mls/hr Q6HR MARTHA Administration Protocol Doxycycline Hyclate 100 mg/ 100 mls @ 100 mls/hr 05/26/25 09:00 05/27/25 09:37 Sodium Chloride IV 06/02/25 08:59 100 mls/hr BID MARTHA Administration Insulin Human Lispro 0 unit 05/26/25 07:00 05/27/25 05:27 Insulin Lispro (Admelog) 1 Unit/0.01 Ml Unit SC 06/25/25 06:29 2 unit Q6HR MARTHA Administration Protocol Labetalol HCl 10 mg 05/26/25 08:19 Labetalol Inj 5 Mg/Ml Vial 20 Ml IVP 06/25/25 03:37 Q2H PRN SBP>160 Levothyroxine Sodium 15 mcg 05/26/25 09:00 05/27/25 09:38 Levothyroxine Inj 100 Mcg Vial IV 06/25/25 08:59 15 mcg QDAY MARTHA Administration Morphine Sulfate 2 mg 05/26/25 03:33 Morphine Sulf Inj 4 Mg/Ml Vial IVP 05/31/25 03:32 Q4HR PRN Pain 4-10 Ondansetron HCl 4 mg 05/26/25 03:33 Ondansetron Inj 2 Mg/Ml Inj 2 Ml IVP 06/25/25 03:32 Q6H PRN NAUSEA OR VOMITING Protocol Pantoprazole Sodium 40 mg 05/26/25 09:00 05/27/25 09:39 Pantoprazole Inj 40 Mg Vial IVP 06/25/25 08:59 40 mg QDAY MARTHA Administration Plan Summary: This is a 79-year-old male with PMHx of recent hemorrhagic stroke, TIA, prostate cancer, A-fib on WARFARIN, HTN, HLD, T2DM, presented to the ED with abdominal pain, nausea and vomiting and shortness of breath. Admitted for acute hypoxemic respiratory failure 2/2 likely aspiration pneumonia 2/2 vomiting in settings of SBO. #Small bowel obstruction Last BM was morning of presentation and was small but normal, he had several episodes of vomiting stomach content while at home. CT abdomen showed small bowel obstruction with transition point in the left ileus. Patient reports no abdominal pain. Denies dark or bloody stool. Nausea is improving. Denies ever having an abdominal surgery. There is a umbilical hernia on exam. Patient's abdominal distention has improved. His abdomen is nontender to palpation and he has had 1 bowel movement. Plan: ? DC NG tube ? PT ordered - Clear liquid diet #Acute hypoxemic respiratory failure #Pneumonia, likely aspiration #Lactic acidosis (resolved) With acute hypoxemic respiratory failure following an episode of vomiting earlier today. CT showed multifocal bilateral pneumonia. Most likely aspirated in settings of SBO described below. Currently on BiPAP, satting well. Afebrile, has mild reactive leukocytosis of 17, trending down. Also had mild lactic acidosis which resolved with fluids. Prelim blood cultures negative. Plan: ? DUONEB PRN ? Continue DOXYCYCLINE IV BID and ZOSYN IV renally dosed, started 05/26/2025 ? Oxygen PRN #Recent hemorrhagic stroke #Atrial fibrillation (likely paroxysmal) on WARFARIN #Hypertension #Hyperlipidemia On 05/22/2025, he had a 13 mm acute infarct of the left basal ganglia and was managed medically at [facility], WARFARIN was held appropriately, and was discharged after symptoms improved. Repeat head CT on this admission showed no worsening hemorrhagic stroke, and no focal neurological deficits on exam. EKG showed sinus rhythm without acute ST changes, HR controlled. Blood pressure stable. Brain MRI on 05/26/2025 showed a 15 mm left thalamic infarct. Neurology is on board and recommends repeat CT scan of the head without contrast within the next 48 hours. Plan: ? Continue LABETALOL PRN for SBP greater than 140 ? Continue home ATORVASTATIN 40 mg daily - Continue home amlodipine 10 mg p.o. 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 Baseline GFR around 50s Likely has NEELA in setting of dehydration Creatinine improving from 1.8 to 1.6, estimated GFR 47.3 Plan: ? DC maintenance fluids, patient tolerating oral intake ? Renally dose meds, avoid overdiuresis and NEPHROTOXINS ? Daily CMP #Hypothyroidism Normal thyroid function. Plan: ?Continue LEVOTHYROXINE 15 mcg IV daily, transition to home dose of 25 mg orally when able #T2DM Admission GLUCOSE 244. Glucose has ranged from the high 180s to low 210s Plan: ? Continue INSULIN sliding scale ? Accu-Checks #Prostate cancer Follows up with Dr. Bustamante. No symptoms of urinary incontinence or retention. Plan: ? Continue outpatient follow-up #Acute normocytic anemia Patient's hemoglobin dropped from 14.3-12.6. May be dilutional in nature because RBC and hematocrit decreased slightly as well. Plan: -Will monitor with daily CBC Health maintenance Diet: Clear liquids advance as tolerated. GI prophylaxis: PROTONIX DVT prophylaxis: SCD Antibiotics: DOXYCYCLINE, ZOSYN CODE STATUS: Full code Disposition: NG tube discontinued. Patient having bowel movements. Starting diet. Patient was seen and discussed with my attending physician Dr. Agustin PAEZ and my senior resident Dr. Boris PAEZ PGY-2. Keyon Durham DO PGY-1. Attending Provider Attestation/Addendum 79-year-old male with multiple comorbidities including hypertension, hyperlipidemia, type 2 diabetes mellitus, recent hemorrhagic stroke treated medically and A-fib presented with abdominal pain found to have small bowel obstruction and acute hypoxic respiratory failure with component of aspiration. NG tube in place and patient states that he is passing gas. Continue to monitor closely. As for atrial fibrillation, patient has not been on warfarin secondary to intracranial bleed. Overnight, patient had 1 large bowel movement and plan to remove NG tube and start clear liquid diet. I reviewed above note and agree with findings and plans. I have also personally examined the patient with medicine team and went over assessment and plan with medical team including web design intern and resident physician.
--- NOTE | 2025-05-27 14:15 | ESPR_ITS ---
Documentation for date of: 05/27/25 Subjective Subjective Interval history: Patient was seen and examined at the bedside. Patient appears to be improving. Small bowel obstruction has resolved. MRI brain showed stable 15 mm left thalamic bleed surrounding with swelling/stroke. Prominent microvascular changes. No signs of bleeding and bruising observed. Recommended to safely discharge patient from neurology standpoint. Keep warfarin on hold until brain bleed resolves usually takes a week depending on the repeat CT brain next week. Recommend to follow-up with neurology as outpatient within a week. Will likely perform a CT brain without contrast on Saturday as outpatient. Exam Vital Signs Temp Pulse Resp BP Pulse Ox O2 Del Method O2 Flow Rate 97.2 F 82 18 113/73 95 Nasal Cannula 4 05/27/25 08:00 05/27/25 11:48 05/27/25 11:48 05/27/25 08:00 05/27/25 11:48 05/27/25 08:00 05/27/25 11:48 FiO2 35 05/26/25 05:07 Narrative Exam GENERAL APPEARANCE: AxOx4, generally well-appearing male in no acute distress. HEENT: NC, AT. MMM. EOMI, clear conjunctiva, oropharynx clear. NECK: Supple without lymphadenopathy. No stiffness or restricted ROM. HEART: Regular rate and regular rhythm, normal S1/S2, no m/r/g LUNGS: CTAB, moving air well. No crackles or wheezes are heard. GI: Distended, tenderness has improved in left lower quadrant and bowel sounds present. BACK: No CVAT, no obvious deformity. EXTREMITIES: Without cyanosis, clubbing or edema. NEUROLOGICAL: Grossly nonfocal. Alert and oriented, moving all 4 extremities. CN not formally tested but appear grossly intact. Observed to ambulate with normal gait. Skin: Warm and dry without any rash. Psych: Appropriate mood and affect Objective Labs 05/27/25 04:31 05/27/25 04:31 Labs: Laboratory Results - last 24 hr 05/27/25 04:31 WBC 14.6 H RBC 4.46 L Hgb 12.6 L Hct 38.2 L MCV 86 MCH 28.3 MCHC 33.0 RDW Std Deviation 46.7 H Plt Count 270 Neut % (Auto) 88 H Lymph % (Auto) 5 L [place] % (Auto) 7 Eos % (Auto) 0 Baso % (Auto) 0 Neut # (Auto) 12.8 H Lymph # (Auto) 0.7 L [place] # (Auto) 1.0 H Eos # (Auto) 0.0 Baso # (Auto) 0.0 Immature Gran # (Auto) 0.07 H Absolute Nucleated RBC 0.00 Immature Gran % 1 H Nucleated RBC % 0 Sodium 142 Potassium 4.4 Chloride 107 Carbon Dioxide 23.2 Anion Gap 12 BUN 24 H Creatinine 1.6 H Estim Creat Clear Calc 47.3 L eGFR 44 L BUN/Creatinine Ratio 15 Glucose 189 H D Calculated Osmolality 292 Calcium 9.1 Corrected Calcium 9.3 Phosphorus 3.6 Magnesium 2.3 Total Bilirubin 1.2 AST 12 ALT 24 Alkaline Phosphatase 45 L Total Protein 6.2 Albumin 3.8 Globulin 2.4 Albumin/Globulin Ratio 1.6 ABG Interpretation ABG results: 05/25/25 23:10 ABG pH 7.44 ABG pCO2 34 ABG pO2 106 ABG HCO3 23 ABG O2 Saturation 97 ABG Base Excess -1 Quality Measures Quality Measures none Advance care planning discussed with:: other Assessment & Plan Assessment Current Active Medications: Generic Name Dose Route Start Last Admin Trade Name Freq PRN Reason Stop Dose Admin Acetaminophen 650 mg 05/26/25 03:33 Acetaminophen 325 Mg Tablet NG 06/25/25 03:32 Q6H PRN Fever >100.4 Albuterol/Ipratropium 3 ml 05/26/25 04:08 Albuterol/Ipratropium (Duoneb) Rt Stefany 3 Ml Nebu INH 06/25/25 04:07 Q6HRRT PRN Wheezing Amlodipine Besylate 10 mg 05/26/25 09:00 05/27/25 09:37 Amlodipine Besylate 5 Mg Tablet PO 06/25/25 08:59 Not Given QDAY MARTHA Atorvastatin Calcium 40 mg 05/26/25 21:00 05/26/25 21:31 Atorvastatin Calcium 20 Mg Tablet NG 06/25/25 20:59 40 mg HS MARTHA Administration Dextrose 25 ml 05/26/25 03:38 Dextrose 50%-Water Inj 50 Ml Syringe IV 06/25/25 03:37 Q15MIN PRN BG 50-70 responsive npo pt Dextrose 50 ml 05/26/25 03:38 Dextrose 50%-Water Inj 50 Ml Syringe IV 06/25/25 03:37 Q15MIN PRN BG <50 OR BG <70 & pt unresponsive Glucagon 1 mg 05/26/25 03:38 Glucagon Inj 1 Mg Vial IM Q15MIN PRN BG <70, and no IV access Piperacillin/Tazobactam/Dextrose 3.375 gm in 50 mls @ 12.5 mls/hr 05/26/25 03:43 05/27/25 11:15 Zosyn IV 06/02/25 03:42 12.5 mls/hr Q6HR MARTHA Administration Protocol Doxycycline Hyclate 100 mg/ 100 mls @ 100 mls/hr 05/26/25 09:00 05/27/25 09:37 Sodium Chloride IV 06/02/25 08:59 100 mls/hr BID MARTHA Administration Insulin Human Lispro 0 unit 05/26/25 07:00 05/27/25 11:49 Insulin Lispro (Admelog) 1 Unit/0.01 Ml Unit SC 06/25/25 06:29 3 unit Q6HR MARTHA Administration Protocol Labetalol HCl 10 mg 05/26/25 08:19 Labetalol Inj 5 Mg/Ml Vial 20 Ml IVP 06/25/25 03:37 Q2H PRN SBP>160 Levothyroxine Sodium 15 mcg 05/26/25 09:00 05/27/25 09:38 Levothyroxine Inj 100 Mcg Vial IV 06/25/25 08:59 15 mcg QDAY MARTHA Administration Morphine Sulfate 2 mg 05/26/25 03:33 Morphine Sulf Inj 4 Mg/Ml Vial IVP 05/31/25 03:32 Q4HR PRN Pain 4-10 Ondansetron HCl 4 mg 05/26/25 03:33 Ondansetron Inj 2 Mg/Ml Inj 2 Ml IVP 06/25/25 03:32 Q6H PRN NAUSEA OR VOMITING Protocol Pantoprazole Sodium 40 mg 05/26/25 09:00 05/27/25 09:39 Pantoprazole Inj 40 Mg Vial IVP 06/25/25 08:59 40 mg QDAY MARTHA Administration Plan This is a 79-year-old male with PMHx of recent hemorrhagic stroke, TIA, prostate cancer, A-fib on WARFARIN, HTN, HLD, T2DM, presented to the ED with abdominal pain, nausea and vomiting and shortness of breath. Admitted for acute hypoxemic respiratory failure 2/2 likely aspiration pneumonia 2/2 vomiting in settings of SBO. 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 Repeat head CT on this admission showed no worsening hemorrhagic stroke, and no focal neurological deficits on exam. EKG shows sinus rhythm without acute ST changes, HR controlled. Target BP systolic less than 140. on 05/22 : Head CT shoed 13 mm acute hemorrhage left basal ganglia. on 05/25/[address] showed Stable 15 x 10 mm left thalamic hemorrhage with surrounding mild edema Tiny old infarcts in the right basal ganglia. Labs shows elevated wbc 15.3. Hgb 14.3. Chem showed BUN 18 and Cr 1.8 GFR 38 BG 343 MRI brain showed stable 15 mm left thalamic bleed surrounding with swelling/stroke. Prominent microvascular changes. Plan Recommended to safely discharge patient from neurology standpoint. Keep warfarin on hold until brain bleed resolves usually takes a week depending on the repeat CT brain next week. Recommend to follow-up with neurology as outpatient within a week. Will likely perform a CT brain without contrast on Saturday as outpatient. Recommended to hold off warfarin Continue good control of diabetes and blood pressure Continue LABETALOL PRN for SBP greater than 140 Continue home ATORVASTATIN 40 mg daily Resume home/oral meds #Small bowel obstruction, resolved #Prerenal NEELA on? CKD 3A-3B #Hypothyroidism #T2DM #Prostate cancer #Acute hypoxemic respiratory failure #Pneumonia, likely aspiration #Lactic acidosis (resolved) Rest of the management as per Primary care team. Plan of care discussed with Neurologist,Dr Carlos Mckay MD PGY3
--- NOTE | 2025-05-27 14:24 | PC.SS ---
Rounding Note: Patient receiving IV antibiotics. Plan is to d/c the patient tomorrow.
--- NOTE | 2025-05-27 18:52 | PC.NURSE ---
Pt 93% on RA at rest, 87% RA with exercise, 93% with 3L nc with exercise.
--- NOTE | 2025-05-27 19:01 | ESPR_ITS ---
<Statement entered by Leelee Morales MD - 06/05/25 14:21> II personally examined evaluated the patient in telemetry floor patient is doing much better now with no neurologic symptoms no neurologic deficits appears to be in sinus rhythm most of the time but also had episodes of A-fib rate controlled well agree with holding off anticoagulation for now because of brainstem hemorrhage thalamic hemorrhage and improved symptoms. Will continue to monitor for neurologic symptoms following discharge will repeat a CT and consider possibly Watchman device depending on resolution of the hemorrhage. This will be done as an outpatient Documentation for date of: 05/27/25 Subjective Subjective Interval history: Patient seen today at the bedside found awake, alert, orientedx3. No overnight events reported. Vital signs stable at this time. Telemetry reviewed patient is going in and out of atrial fibrillation however rate adequately controlled at this time. On telemetry only 3 episodes in last 12 hours noted of rate above 100, but below 110. Patient has no active complaints at this time. Exam Vital Signs Temp Pulse Resp BP Pulse Ox O2 Del Method O2 Flow Rate 97.4 F 81 19 113/70 92 L Nasal Cannula 4 05/27/25 16:00 05/27/25 16:00 05/27/25 16:00 05/27/25 16:00 05/27/25 16:00 05/27/25 12:00 05/27/25 16:00 FiO2 35 05/26/25 05:07 Narrative Exam Physical Exam GENERAL: NAD, AAOx3, on room air HEENT: Moist mucosa. Eyes open, symmetrical, & clear, CARDIO: Heart RRR, no obvious murmurs PULM: No noted coughing/dyspnea CTA B/L, no R/W/R GI: Abdomen soft, mild distention, no pain on palpation. SKIN/MSK/EXT: no pain on palpation. Pedal pulses present B/L NEURO: AAOx3, able to move all 4 extremities. Objective Labs 05/27/25 04:31 05/27/25 04:31 Labs: Laboratory Results - last 24 hr 05/27/25 04:31 WBC 14.6 H RBC 4.46 L Hgb 12.6 L Hct 38.2 L MCV 86 MCH 28.3 MCHC 33.0 RDW Std Deviation 46.7 H Plt Count 270 Neut % (Auto) 88 H Lymph % (Auto) 5 L [place] % (Auto) 7 Eos % (Auto) 0 Baso % (Auto) 0 Neut # (Auto) 12.8 H Lymph # (Auto) 0.7 L [place] # (Auto) 1.0 H Eos # (Auto) 0.0 Baso # (Auto) 0.0 Immature Gran # (Auto) 0.07 H Absolute Nucleated RBC 0.00 Immature Gran % 1 H Nucleated RBC % 0 Sodium 142 Potassium 4.4 Chloride 107 Carbon Dioxide 23.2 Anion Gap 12 BUN 24 H Creatinine 1.6 H Estim Creat Clear Calc 47.3 L eGFR 44 L BUN/Creatinine Ratio 15 Glucose 189 H D Calculated Osmolality 292 Calcium 9.1 Corrected Calcium 9.3 Phosphorus 3.6 Magnesium 2.3 Total Bilirubin 1.2 AST 12 ALT 24 Alkaline Phosphatase 45 L Total Protein 6.2 Albumin 3.8 Globulin 2.4 Albumin/Globulin Ratio 1.6 ABG Interpretation ABG results: 05/25/25 23:10 ABG pH 7.44 ABG pCO2 34 ABG pO2 106 ABG HCO3 23 ABG O2 Saturation 97 ABG Base Excess -1 Quality Measures Quality Measures none Advance care planning discussed with:: patient Assessment & Plan Assessment Current Active Medications: Generic Name Dose Route Start Last Admin Trade Name Freq PRN Reason Stop Dose Admin Acetaminophen 650 mg 05/26/25 03:33 Acetaminophen 325 Mg Tablet NG 06/25/25 03:32 Q6H PRN Fever >100.4 Albuterol/Ipratropium 3 ml 05/26/25 04:08 Albuterol/Ipratropium (Duoneb) Rt Stefany 3 Ml Nebu INH 06/25/25 04:07 Q6HRRT PRN Wheezing Amlodipine Besylate 10 mg 05/26/25 09:00 05/27/25 09:37 Amlodipine Besylate 5 Mg Tablet PO 06/25/25 08:59 Not Given QDAY MARTHA Atorvastatin Calcium 40 mg 05/26/25 21:00 05/26/25 21:31 Atorvastatin Calcium 20 Mg Tablet NG 06/25/25 20:59 40 mg HS MARTHA Administration Dextrose 25 ml 05/26/25 03:38 Dextrose 50%-Water Inj 50 Ml Syringe IV 06/25/25 03:37 Q15MIN PRN BG 50-70 responsive npo pt Dextrose 50 ml 05/26/25 03:38 Dextrose 50%-Water Inj 50 Ml Syringe IV 06/25/25 03:37 Q15MIN PRN BG <50 OR BG <70 & pt unresponsive Glucagon 1 mg 05/26/25 03:38 Glucagon Inj 1 Mg Vial IM Q15MIN PRN BG <70, and no IV access Piperacillin/Tazobactam/Dextrose 3.375 gm in 50 mls @ 12.5 mls/hr 05/26/25 03:43 05/27/25 17:30 Zosyn IV 06/02/25 03:42 12.5 mls/hr Q6HR MARTHA Administration Protocol Doxycycline Hyclate 100 mg/ 100 mls @ 100 mls/hr 05/26/25 09:00 05/27/25 09:37 Sodium Chloride IV 06/02/25 08:59 100 mls/hr BID MARTHA Administration Insulin Human Lispro 0 unit 05/27/25 17:00 05/27/25 17:35 Insulin Lispro (Admelog) 1 Unit/0.01 Ml Unit SC 06/26/25 16:59 2 unit ACHS MARTHA Administration Protocol Labetalol HCl 10 mg 05/26/25 08:19 Labetalol Inj 5 Mg/Ml Vial 20 Ml IVP 06/25/25 03:37 Q2H PRN SBP>160 Levothyroxine Sodium 15 mcg 05/26/25 09:00 05/27/25 09:38 Levothyroxine Inj 100 Mcg Vial IV 06/25/25 08:59 15 mcg QDAY MARTHA Administration Morphine Sulfate 2 mg 05/26/25 03:33 Morphine Sulf Inj 4 Mg/Ml Vial IVP 05/31/25 03:32 Q4HR PRN Pain 4-10 Ondansetron HCl 4 mg 05/26/25 03:33 Ondansetron Inj 2 Mg/Ml Inj 2 Ml IVP 06/25/25 03:32 Q6H PRN NAUSEA OR VOMITING Protocol Pantoprazole Sodium 40 mg 05/26/25 09:00 05/27/25 09:39 Pantoprazole Inj 40 Mg Vial IVP 06/25/25 08:59 40 mg QDAY MARTHA Administration Sennosides 1 tab 05/27/25 16:50 05/27/25 17:29 Senna Tablet PO 06/26/25 16:49 Not Given QDAY MARTHA Protocol Plan 79-year-old male with past medical history of TIA, prostate cancer, atrial fibrillation on warfarin, hypertension, hyperlipidemia, type 2 diabetes, recent emergency room visit for hemorrhagic stroke who came to the ED due to abdominal pain nausea vomiting with associated shortness of breath. Admitted for AHRF secondary to aspiratoin pneumonia and SBO. Cardiology consulted for management of Afib on warfarin. #Paroxysmal Atrial fibrillation #Recent Hemorrhagic stroke in thalamic region with edema-stable #Hypertension #Hyperlipidemia May 22, 2025 had ER visit due to new onset weakness, slurred speech and found to have left basal ganglia hemorrhage 13mm evidenced on CT scan. Patient was subsequently transferred to [facility] delta was managed medically and discharged. Patient was on Warfarin for management of Atrial Fibrillation which was appropriately held and reversed. This admission showed no worsening of hemorrhagic stroke; 05/25/[address] showed Stable 15 x 10 mm left thalamic hemorrhage with surrounding mild edema Tiny old infarcts in the right basal ganglia. EKG showed sinus rhythm at this time CHADVASC score: 6; 9.7% stroke risk per year, patient requires to be on anti- coagulation however given the recent head bleed will hold off at this time. ? Hold warfarin indefinitely as patient has already had hemorrhagic stroke ? Hold anticoagulation at least for 1 month, as long as patient does not convert to afib ? Will start the patient on Eliquis as an outpatient basis after brain hemorrhage has resolved and evidenced by repeat CT scans. ? Patient currently in sinus rhythm will monitor telemetry closely for any episodes of atrial fibrillation especially with RVR. ? Keep K>4, Mg>2 #Small bowel obstruction #Prerenal NEELA on CKD #Hypothyroidism #T2DM #Prostate cancer #Acute hypoxemic respiratory failure #Pneumonia, likely aspiration #Lactic acidosis (resolved) Rest of medical problems as per Primary care team. Case discussed with my attending Dr. Andrew Winkler MD PGY-2 Disclaimer: Despite multiple revisions, due to the dictation software being used, the document bellow may not be free of grammatical errors including phonetic/typographic errors. However, this does not deter from our commitment to providing health care in the patient's best interest in mind.
[2025-05-27] MEDS: ATORVASTATIN CALCIUM 20 MG TABLET 40 MG NG (20:44)
[2025-05-28] VITALS (8 sets, daily range): BP systolic 127–149; BP diastolic 73–92; PULSE 74–97; RESP 16–24; TEMP 36.4–37; O2SAT 90–97; BMI 29.0; BMI 29.1
[2025-05-28] MEDS: PIPER/TAZO 3.375 GM PREMIX 3.375 GM/50 ML BAG IV ×3 (00:39→12:30)
[2025-05-28 05:52] LABS: Basophils # (Auto) 0.1 Thou/mm3 (0.0-0.2); Basophils % (Auto) 0 % (0-2.5); Eosinophils # (Auto) 0.3 Thou/mm3 (0.0-0.5); Eosinophils % (Auto) 2 % (0-10); Hematocrit 35.4 % (41.0-53.0); Hemoglobin 11.8 g/dL (13.5-16.0); Immature Granulocytes Auto 0.09 Thou/mm3 (0.00-0.00); Lymphocytes # (Auto) 1.0 Thou/mm3 (1.0-4.8); Lymphocytes % (Auto) 8 % (10-50); Mean Corpuscular HGB Conc 33.3 g/dl (31.0-37.0); Mean Corpuscular Hemoglobin 28.6 pg (25.0-35.0); Mean Corpuscular Volume 86 fL (80-100); Monocytes # (Auto) 1.4 Thou/mm3 (0.0-0.8); Monocytes % (Auto) 11 % (0-12); Neutrophils # (Auto) 10.5 Thou/mm3 (1.8-7.7); Neutrophils % (Auto) 79 % (37-80); Nucleated Red Blood Cell # 0.00 Thou/mm3 (0.00-0.00); Nucleated Red Blood Cell % 0 /100 WBC (0); Platelet Count 266 Thou/mm3 (140-440); RDW Standard Deviation 46.5 fL (35.1-43.9); Red Blood Count 4.13 Miln/mm3 (4.50-5.90); White Blood Count 13.4 Thou/mm3 (3.8-10.6)
[2025-05-28 06:14] LABS: Alanine Aminotransferase 27 U/L (10-49); Albumin, Serum 3.5 gm/dL (3.4-4.8); Albumin/Globulin Ratio 1.5 (1.2-2.2); Alkaline Phosphatase 50 U/L (46-116); Anion Gap 11 (7-16); Aspartate Amino Transferase 23 U/L (0-34); BUN/Creatinine Ratio 15 Ratio (12-20); Bilirubin,Total 1.0 mg/dL (0.3-1.2); Blood Urea Nitrogen 25 mg/dL (9-23); Calcium 8.7 mg/dL (8.3-10.6); Calcium (Corrected) 9.1 mg/dL (8.5-10.1); Carbon Dioxide 24.7 mMol/L (20.0-31.0); Chloride 106 mMol/L (98-107); Creatinine (Component) 1.7 mg/dL (0.6-1.3); Estimated Creatinine Clearance 44.5 mL/min (>60); Globulin 2.3 gm/dL (2.3-3.5); Glucose 196 mg/dL (74-106); Magnesium 1.9 mg/dL (1.6-2.6); Osmolality,Calculated 292 (275-295); Phosphorous 2.1 mg/dL (2.4-5.1); Potassium 4.0 mMol/L (3.4-5.1); Sodium 142 mMol/L (136-145); Total Protein 5.8 gm/dL (5.7-8.2); eGFR 41 See Note
[2025-05-28] MEDS: DOXYCYCLINE INJ 100 MG in SODIUM CHLORIDE 0.9% (POP) 100 ML IV (08:23)
[2025-05-28] MEDS: NAPH,KPH MBDB 1 PACKET (1.5 GM) PO (08:26)
[2025-05-28] MEDS: INSULIN LISPRO (AdmeLOG) 1 UNIT/0.01 ML UNIT SC ×3 (08:27→17:37)
--- NOTE | 2025-05-28 11:59 | PC.SS ---
CONFERENCE RESERVATIONIST informed bedside nurse of need to initiate room air evaluation to confirm patient's need for home oxygen.
--- NOTE | 2025-05-28 12:07 | PC.SS ---
Oxygen Pt is discharged in a chronic stable state and has been treated optimally and has other respiratory needs. Oxygen has been ordered due to Acute hypoxemic respiratory failure.
--- NOTE | 2025-05-28 13:31 | ESPR_ITS ---
<Statement entered by Leelee Morales MD - 06/05/25 14:22> I personally examined the patient evaluated with PGY 2 Dr. Winkler patient clinically doing well can be discharged home I will see him as an outpatient make decision as to anticoagulation versus Watchman device discussed as an outpatient most likely patient may require Watchman device brainstem hemorrhage does not improve. Documentation for date of: 05/28/25 Subjective Subjective Interval history: Patient seen today at the bedside found awake, alert, orientedx3. No overnight events reported. Vital signs stable at this time. Exam Vital Signs Temp Pulse Resp BP Pulse Ox O2 Del Method O2 Flow Rate 98.2 F 83 18 131/92 H 97 Nasal Cannula 3 05/28/25 11:33 05/28/25 12:00 05/28/25 12:00 05/28/25 11:33 05/28/25 12:00 05/28/25 11:33 05/28/25 12:00 FiO2 35 05/26/25 05:07 Narrative Exam Physical Exam GENERAL: NAD, AAOx3, on room air HEENT: Moist mucosa. Eyes open, symmetrical, & clear, CARDIO: Heart RRR, no obvious murmurs PULM: No noted coughing/dyspnea CTA B/L, no R/W/R GI: Abdomen soft, mild distention, no pain on palpation. SKIN/MSK/EXT: no pain on palpation. Pedal pulses present B/L NEURO: AAOx3, able to move all 4 extremities. Objective Labs 05/28/25 05:19 05/28/25 05:19 Labs: Laboratory Results - last 24 hr 05/28/25 05:19 WBC 13.4 H RBC 4.13 L Hgb 11.8 L Hct 35.4 L MCV 86 MCH 28.6 MCHC 33.3 RDW Std Deviation 46.5 H Plt Count 266 Neut % (Auto) 79 Lymph % (Auto) 8 L [place] % (Auto) 11 Eos % (Auto) 2 Baso % (Auto) 0 Neut # (Auto) 10.5 H Lymph # (Auto) 1.0 [place] # (Auto) 1.4 H Eos # (Auto) 0.3 Baso # (Auto) 0.1 Immature Gran # (Auto) 0.09 H Absolute Nucleated RBC 0.00 Immature Gran % 1 H Nucleated RBC % 0 Sodium 142 Potassium 4.0 Chloride 106 Carbon Dioxide 24.7 Anion Gap 11 BUN 25 H Creatinine 1.7 H Estim Creat Clear Calc 44.5 L eGFR 41 L BUN/Creatinine Ratio 15 Glucose 196 H Calculated Osmolality 292 Calcium 8.7 Corrected Calcium 9.1 Phosphorus 2.1 L Magnesium 1.9 Total Bilirubin 1.0 AST 23 ALT 27 Alkaline Phosphatase 50 Total Protein 5.8 Albumin 3.5 Globulin 2.3 Albumin/Globulin Ratio 1.5 ABG Interpretation ABG results: 05/25/25 23:10 ABG pH 7.44 ABG pCO2 34 ABG pO2 106 ABG HCO3 23 ABG O2 Saturation 97 ABG Base Excess -1 Quality Measures Quality Measures none Advance care planning discussed with:: patient Assessment & Plan Assessment Current Active Medications: Generic Name Dose Route Start Last Admin Trade Name Freq PRN Reason Stop Dose Admin Acetaminophen 650 mg 05/26/25 03:33 Acetaminophen 325 Mg Tablet NG 06/25/25 03:32 Q6H PRN Fever >100.4 Albuterol/Ipratropium 3 ml 05/26/25 04:08 Albuterol/Ipratropium (Duoneb) Rt Stefany 3 Ml Nebu INH 06/25/25 04:07 Q6HRRT PRN Wheezing Amlodipine Besylate 10 mg 05/26/25 09:00 05/28/25 08:25 Amlodipine Besylate 5 Mg Tablet PO 06/25/25 08:59 10 mg QDAY MARTHA Administration Atorvastatin Calcium 40 mg 05/26/25 21:00 05/27/25 20:44 Atorvastatin Calcium 20 Mg Tablet NG 06/25/25 20:59 40 mg HS MARTHA Administration Dextrose 25 ml 05/26/25 03:38 Dextrose 50%-Water Inj 50 Ml Syringe IV 06/25/25 03:37 Q15MIN PRN BG 50-70 responsive npo pt Dextrose 50 ml 05/26/25 03:38 Dextrose 50%-Water Inj 50 Ml Syringe IV 06/25/25 03:37 Q15MIN PRN BG <50 OR BG <70 & pt unresponsive Glucagon 1 mg 05/26/25 03:38 Glucagon Inj 1 Mg Vial IM Q15MIN PRN BG <70, and no IV access Piperacillin/Tazobactam/Dextrose 3.375 gm in 50 mls @ 12.5 mls/hr 05/26/25 03:43 05/28/25 12:30 Zosyn IV 06/02/25 03:42 12.5 mls/hr Q6HR MARTHA Administration Protocol Doxycycline Hyclate 100 mg/ 100 mls @ 100 mls/hr 05/26/25 09:00 05/28/25 08:23 Sodium Chloride IV 06/02/25 08:59 100 mls/hr BID MARTHA Administration Insulin Human Lispro 0 unit 05/28/25 07:15 05/28/25 12:31 Insulin Lispro (Admelog) 1 Unit/0.01 Ml Unit SC 06/26/25 07:14 4 unit ACHS MARTHA Administration Protocol Labetalol HCl 10 mg 05/26/25 08:19 Labetalol Inj 5 Mg/Ml Vial 20 Ml IVP 06/25/25 03:37 Q2H PRN SBP>160 Levothyroxine Sodium 15 mcg 05/26/25 09:00 05/28/25 08:24 Levothyroxine Inj 100 Mcg Vial IV 06/25/25 08:59 15 mcg QDAY MARTHA Administration Ondansetron HCl 4 mg 05/26/25 03:33 Ondansetron Inj 2 Mg/Ml Inj 2 Ml IVP 06/25/25 03:32 Q6H PRN NAUSEA OR VOMITING Protocol Pantoprazole Sodium 40 mg 05/26/25 09:00 05/28/25 08:23 Pantoprazole Inj 40 Mg Vial IVP 06/25/25 08:59 40 mg QDAY MARTHA Administration Sennosides 1 tab 05/27/25 16:50 05/28/25 08:52 Senna Tablet PO 06/26/25 16:49 Not Given QDAY MARTHA Protocol Plan 79-year-old male with past medical history of TIA, prostate cancer, atrial fibrillation on warfarin, hypertension, hyperlipidemia, type 2 diabetes, recent emergency room visit for hemorrhagic stroke who came to the ED due to abdominal pain nausea vomiting with associated shortness of breath. Admitted for AHRF secondary to aspiratoin pneumonia and SBO. Cardiology consulted for management of Afib on warfarin. #Paroxysmal Atrial fibrillation #Recent Hemorrhagic stroke in thalamic region with edema-stable #Hypertension #Hyperlipidemia May 22, 2025 had ER visit due to new onset weakness, slurred speech and found to have left basal ganglia hemorrhage 13mm evidenced on CT scan. Patient was subsequently transferred to [facility] delta was managed medically and discharged. Patient was on Warfarin for management of Atrial Fibrillation which was appropriately held and reversed. This admission showed no worsening of hemorrhagic stroke; 05/25/[address] showed Stable 15 x 10 mm left thalamic hemorrhage with surrounding mild edema Tiny old infarcts in the right basal ganglia. EKG showed sinus rhythm at this time CHADVASC score: 6; 9.7% stroke risk per year, patient requires to be on anti- coagulation however given the recent head bleed will hold off at this time. ? Hold warfarin indefinitely as patient has already had hemorrhagic stroke ? Hold anticoagulation at least for 1 month, as long as patient does not convert to afib ? Will start the patient on Eliquis as an outpatient basis after brain hemorrhage has resolved and evidenced by repeat CT scans. ? Patient currently in sinus rhythm will monitor telemetry closely for any episodes of atrial fibrillation especially with RVR. ? Keep K>4, Mg>2 #Small bowel obstruction #Prerenal NEELA on CKD #Hypothyroidism #T2DM #Prostate cancer #Acute hypoxemic respiratory failure #Pneumonia, likely aspiration #Lactic acidosis (resolved) Rest of medical problems as per Primary care team. Case discussed with my attending Dr. Andrew Winkler MD PGY-2 Disclaimer: Despite multiple revisions, due to the dictation software being used, the document bellow may not be free of grammatical errors including phonetic/typographic errors. However, this does not deter from our commitment to providing health care in the patient's best interest in mind.
--- NOTE | 2025-05-28 15:10 | PC.NURSE ---
patient Oxygen desaturate to SPO2 84% in room air with ambulation.
--- NOTE | 2025-05-28 15:14 | ESDS_ITS ---
<Statement entered by Tea Humphrey DO - 05/29/25 08:12> I, Tea Humphrey DO, attest that I was physically present for the martin portions of the service and evaluated the patient with the resident and I reviewed and discussed the case with the resident and agree with the resident's findings and plans of care as documented above <Statement entered by Devendra Escalante MD - 05/28/25 18:22> Note reviewed and agree with care plan as documented. Please refer to the note below for further details. Plan discussed with attending physician Dr. Kam Escalante MD PGY-2 Internal Medicine Planned Discharge Date 05/28/25 DS: Providers Provider Date of admission: 05/26/25 03:33 Primary care physician: Darryn Phelan MD Admitting Provider: Preston Tidwell MD Attending Provider on Admission: Tea Humphrey DO Consults: 05/26/25 00:45 Referral Physical Therapy Stat Comment: Physician Instructions: Instructions: BiPAP 05/26/25 03:40 Consult to Cardiology Routine Comment: Afib on Warfarin, held 2/2 hemorrhagic stroke Consulting Provider: Leelee Morales 05/26/25 06:09 Consult to General Surgery Routine Comment: SBO Consulting Provider: Wilner Tate 05/26/25 15:15 Consult to Neurology / Tele-Neurology Routine Comment: Consulting Provider: Wojciech Gonzalez Attending Provider on DC: Tea Humphrey DO Discharging Provider: Keyon Durham DO DS: Diagnosis Discharge Diagnosis (1) SBO (small bowel obstruction): Status: Acute (2) Hospital-acquired pneumonia: Status: Acute (3) Acute respiratory failure with hypoxia: Status: Acute (4) Diabetes 1.5, managed as type 2: Status: Acute Problem List Completed Was Problem List Reviewed/Reconciled?: Yes Hospital Course Hospital Course Hospital course: Hospital Course: This is a 79-year-old male with PMHx of recent hemorrhagic stroke, TIA, prostate cancer, A-fib on WARFARIN, HTN, HLD, T2DM, who was admitted for acute hypoxic respiratory failure secondary to aspiration pneumonia.? He had an SBO during his hospital stay and an NG tube was placed.? Repeat KUB showed resolution of SBO. He has since been tolerating diet and working with physical therapy. MRI had been done and shows 15mm left thalamic infarct. Neurology had been following and recommends repeat CT head for Saturday, which has been ordered and patient to f/u with neurology in 1 week. The patient is able to walk but his ambulatory oxygen saturation is lower than his resting oxygen saturation. He will be discharged home with antibiotics for aspiration pneumonia. The patient will be discharged on home oxygen therapy. He will also be discharged on a modified blood sugar control regimen for his diabetes. Problem List: #Small bowel obstruction #Acute hypoxemic respiratory failure #Pneumonia, likely aspiration #Lactic acidosis (resolved) #Recent hemorrhagic stroke #Atrial fibrillation (likely paroxysmal) on WARFARIN #Hypertension #Hyperlipidemia #Prerenal NEELA on? CKD 3A-3B #Hypothyroidism #Type 2 diabetes mellitus #Prostate cancer #Acute normocytic anemia Discharge Instructions: ? Stop taking your metformin due to renal function ? Stop taking your lisinopril ? Stop taking your tadalafil ? Stop taking your tamsulosin ? Follow-up with your PCP about the above 4 medications ? Continue amlodipine, labetalol, levothyroxine, and pravastatin ? You've been started on amoxicillin-clavulanate to take twice per day for five days ? Your glimepiride has been switched to sitagliptin for your diabetes ? Continue to hold your warfarin in setting of hemorrhagic stroke, at least until you follow-up with cardiologit and/or neurologist ? Follow-up with PCP within 1-2 weeks of discharge ? Follow-up with taxi truck driver within 1-2 weeks of discharge ? Follow-up with neurologist within 1-2 weeks of discharge ? Per neurology, recommend CT head on Saturday ? If you do not have a PCP, you can follow-up at the [facility] (you can call [phone] to make an appointment) ? Return to ED if symptoms worsen or recur The patient was seen and discussed with my attending physician Dr. Kam AGUIRRE and my senior resident Dr. oBris PAEZ PGY-2. Keyon Durham DO PGY-1 Time Spent with Patient Time attestation: Total time spent providing and/or coordinating discharge services: Greater than 50% Time spent: Greater than 30 minutes Home Health Home Health Referral Orders: 05/28/25 09:42 Home Health Referral Routine Reason For Exam: sbo Home-Bound The patient must either because of illness or injury, need the aid of supportive devices such as crutches, canes, wheelchairs, and walkers; the use of special transportation; or the assistance of another person in order to leave their place of residence; OR have a condition such that leaving his or her home is medically contraindicated. In addition, the patient also meets the following criteria: patient is normally unable to leave the home and leaving home requires considerable taxing effort. Addendum to Home Health Certification Practitioner's Certification: I certify that the patient has been under my care in the hospital and the care of attending physician (see below). We had a [id number] encounter on (see date below). My clinical findings indicate that the patient is home bound per the above criteria and the Home Health Services noted in these orders are medically necessary. The primary reason for the [id number] encounter is related to the fact that the patient requires home health services. Date Certifying Ewhx-sb-Iozl Physician Encounter: 05/26/25 Physician's Name who will Assume Oversight for Services: Darryn Phelan Physician's Phone No.who will Assume Oversight for Service: SAND POL[employer]ER - Community Resources: No PT to Evaluate: Yes PT to evaluate and provide a treatmnet plan to increase patient's mobility and strength. Wound Care: No IV Therapy: No RN Safety Evaluation: Yes RN to evaluate and create a plan of care that will produce positive outcomes. Palliative Treatment: No Palliative treatment and evaluate the need for hospice. Home Health Aide - Personal Care: Yes Home Health Aide to assist with any ADL's. Exam Vital Signs Temp Pulse Resp BP Pulse Ox O2 Del Method O2 Flow Rate 98.2 F 83 18 131/92 H 97 Nasal Cannula 3 05/28/25 11:33 05/28/25 12:00 05/28/25 12:00 05/28/25 11:05/28/25 12:05/28/25 11:05/28/25 12:00 FiO2 35 05/26/25 05:07 Narrative Exam General: No acute distress. Neurologic: GCS 15. Alert and oriented x3, no gross neurological deficit, and patient able to move all 4 extremities. HEENT: Normocephalic, atraumatic, mucous membranes moist. Pupils reactive to light. Heart: Regular rate and rhythm, normal S1 and S2, no murmurs. Lungs: Nasal cannula at 3 L, decreased breath sounds in the bases, CTAB in the upper lobes bilaterally. Abdomen: Improving distention, umbilical hernia, nontender to palpation. Extremities: No edema. 2+ radial and dorsalis pedis pulses bilaterally. Skin: Warm. Dry. No rash or ecchymoses. Discharge Plan Plan Patient Disposition: Home w/HOME HEALTH Patient condition on transfer: Stable Care Plan Goals: ? Stop taking your metformin due to renal function ? Stop taking your lisinopril ? Stop taking your tadalafil ? Stop taking your tamsulosin ? Follow-up with your PCP about the above 4 medications ? Continue amlodipine, labetalol, levothyroxine, and pravastatin ? You've been started on amoxicillin-clavulanate to take twice per day for five days ? Your glimepiride has been switched to sitagliptin for your diabetes ? Continue to hold your warfarin in setting of hemorrhagic stroke, at least until you follow-up with cardiologit and/or neurologist ? Follow-up with PCP within 1-2 weeks of discharge ? Follow-up with taxi truck driver within 1-2 weeks of discharge ? Follow-up with neurologist within 1-2 weeks of discharge ? Per neurology, recommend CT head on Saturday ? If you do not have a PCP, you can follow-up at the [facility] (you can call [phone] to make an appointment) ? Return to ED if symptoms worsen or recur Prescriptions/Referrals Prescriptions/Med Rec: New amoxicillin-pot clavulanate 875-125 mg tablet 1 tab PO BID 5 Days Qty: 10 0RF sitagliptin 50 mg tablet 50 mg PO QDAY 30 Days Qty: 30 0RF Continued levothyroxine 25 mcg capsule 50 mcg PO QDAY labetalol 200 mg tablet 200 mg PO QDAY amlodipine 10 mg tablet 10 mg PO .QD pravastatin 40 mg tablet 40 mg PO QDAY Patient Comments: TAKE 1 TABLET BY MOUTH ONCE DAILY Held warfarin 5 mg tablet 5 mg PO QMWF Hold Instructions: Resume on 06/10/25. Hold until you speak to either taxi truck driver and/or neurologist Discontinued lisinopril 20 mg tablet 20 mg PO QDAY tamsulosin 0.4 mg capsule 0.4 mg PO QHS tadalafil [Cialis] 5 mg tablet 5 mg PO QDAY metformin 500 mg Tablet 500 mg PO BID glimepiride 2 mg tablet 2 mg PO QDAY Patient Comments: TAKE 1 TABLET BY MOUTH ONCE DAILY WITH BREAKFAST OR THE FIRST MAIN MEAL OF THE DAY Referrals: Darryn Phelan MD [Primary Care Provider, Family Practice] Outpatient Orders (i.e. Home Health, Labs, Imaging): CT head/brain wo con (Routine) Timeframe: [id number] Location: None Selected Ordered By: Devendra Escalante Patient/Caregiver Discharge Instructions Education Materials: Chest and Lung Problems, Chest Lung problems Surg Dx, Small Bowel Obstruction, Large Bowel Obstruction, COPD Diabetes, Diabetes and Heart Disease, AFL/Afib, What Is Pneumonia?, Lung Anatomy, Preventing Pneumonia, Anatomy of the Brain, Calcium Channel Blockers Dc, How the Colon Works, Preventing Common Respiratory ..., Diabetes Exercise Plan, Arm Care After a Stroke, Blood Pressure Check Steps, Obstruction Intestinal, ED Atrial Fibrillation, ED About Arrhythmias Print Language: Niuean Stand Alone Forms: [facility]va Award Info., Patient Portal Info Letter Discharge Order Discharge Orders: Discharge (Routine); Ordered 05/28/25 Ordered By: Devendra Escalante Quality Discharge Quality Measures none
--- NOTE | 2025-05-28 15:17 | PC.NURSE ---
patient room air at rest 91%, patient walk without O2 at 84%, patient walk WITH O2 at 93%.
--- NOTE | 2025-05-28 15:55 | PC.SS ---
DME referral submitted on [facility]. Awaiting responses. Documentation placed in patient's chart.
--- NOTE | 2025-05-29 09:37 | PC.CC ---
Home health referral sent to [facility], they will resume care today, 05/29/25.
--- NOTE | 2025-05-31 23:20 | PD.NEUROPROG ---
Documentation for date of: 05/28/25 Subjective Subjective Interval history: Patient was seen in telemetry today without any new symptoms. Exam - Neurology Vital Signs Temp Pulse Resp BP Pulse Ox O2 Del Method O2 Flow Rate 97.6 F 97 24 H 127/81 92 L Nasal Cannula 3 05/28/25 16:00 05/28/25 16:00 05/28/25 16:00 05/28/25 16:00 05/28/25 16:00 05/28/25 16:00 05/28/25 16:00 FiO2 35 05/26/25 05:07 Narrative Exam GENERAL APPEARANCE: Well hydrated, well-nourished in no acute distress. HEENT: Normocephalic, atraumatic, extraocular movements intact. Pupils: Equal reacting to light and accommodation, tympanic membranes are bilaterally intact. There is no bulge or retraction. Throat without erythema or exudate. Moist oral mucosa. NECK: Supple, no JVD or bruits. CARDIOVASULAR: Heart: S1, S2 heard, regular without S3-S4 or murmur no rubs or gallops. LUNGS/CHEST: Clear to auscultation bilaterally. No rails, rhonchi, or wheezing. Normal inspection. ABDOMEN: Soft, nontender, with normal bowel sounds. No pulsatile masses. No rebound, rigidity, or guarding. Normal inspection and palpation. EXTREMITIES: Normal inspection and palpation. No edema, clubbing or cyanosis. SKIN: Warm and dry without rashes. Normal inspection. MUSCULOSKELETAL: No cervical, thoracic, lumbar or midline bony tenderness. Normal inspection. NEURO: Alert, awake and oriented x3. Cranial nerves: II through XII grossly intact. Speech and language: Normal with no dysarthria or dysphasia. Motor system: Tone and bulk: Normal: Strength: 5 out of 5 in all 4 extremities; No pronator drift noted. Deep tendon reflexes: 2+ bilaterally symmetrical. Plantar reflex: Downgoing bilaterally. Sensory system: Intact to all modalities of sensation bilaterally. Coordination: Intact to ikujca-bvjf-svfar and trtt-yafb-[id number] test bilaterally. No ataxia, no dysmetria, or dysdiadochokinesia noted. No intention tremors noted. Gait: Normal. Toe, heel, tandem walk all are normal. Romberg: Negative. No signs of meningeal irritation noted. PSYCHIATRIC: Normal mood and affect. Denies homicidal or suicidal ideation. Objective Labs 05/28/25 05:19 05/28/25 05:19 ABG Interpretation ABG results: 05/25/25 23:10 ABG pH 7.44 ABG pCO2 34 ABG pO2 106 ABG HCO3 23 ABG O2 Saturation 97 ABG Base Excess -1 Assessment & Plan Assessment and plan (1) CVA (cerebrovascular accident due to intracerebral hemorrhage): Status: Acute Assessment and plan: Repeat CT head showed stable ICH in the left thalamus Will hold off on the anticoagulant until next week with the repeat study (2) Hypertension: Status: Chronic Assessment and plan: under control on current meds (3) SBO (small bowel obstruction): Status: Resolved (4) Diabetes 1.5, managed as type 2: Status: Chronic (5) Atrial fibrillation: Status: Chronic
== END 2025-05-28 18:40 | disposition home health service (06) | DRG 388 ==
LOC: SERX 05-26 03:02 → SERHOLD 05-26 04:08 → S2NX 05-26 04:47
PROVIDERS: Admitting Provider Internal Medicine; Emergency Provider Emergency Medicine; PCP Family Medicine; Visit Provider Internal Medicine
DX: K56.609 Unspecified intestinal obstruction, unspecified as to partial versus complete obstruction (principal); J18.9 Pneumonia, unspecified organism; J96.01 Acute respiratory failure with hypoxia; J69.0 Pneumonitis due to inhalation of food and vomit; N17.9 Acute kidney failure, unspecified; E87.20 Acidosis, unspecified; K56.7 Ileus, unspecified; N18.31 Chronic kidney disease, stage 3a; I12.9 Hypertensive chronic kidney disease with stage 1 through stage 4 chronic kidney disease, or unspecified chronic kidney disease; I48.91 Unspecified atrial fibrillation; Z79.01 Long term (current) use of anticoagulants; Z87.891 Personal history of nicotine dependence; E78.5 Hyperlipidemia, unspecified; D63.1 Anemia in chronic kidney disease; E03.9 Hypothyroidism, unspecified; C61 Malignant neoplasm of prostate; E11.22 Type 2 diabetes mellitus with diabetic chronic kidney disease; E86.0 Dehydration; I48.0 Paroxysmal atrial fibrillation; K42.9 Umbilical hernia without obstruction or gangrene; Y95 Nosocomial condition; Z79.4 Long term (current) use of insulin; Z79.899 Other long term (current) drug therapy; Z86.73 Personal history of transient ischemic attack (TIA), and cerebral infarction without residual deficits
CPT/HCPCS: 36415; 36600; 70450; 70551; 71045; 71275; 74018; 74177; 74250; 80053; 81001; 82248; 82803; 83605; 83690; 83735; 83880; 84100; 84145; 84439; 84443; 84481; 84484; 85025; 85379; 85610; 85652; 85730; 86140; 87040; 87081; 87400; 87811; 93005; 93970; 94640; 94660; 96361; 96365; 96366; 96375; 97162; 99284; A4649; A9270; J0692; J1815; J2470; J2543; J2919; J3475; J3490; J7030; J7050; Q9963; Q9967

== ENCOUNTER → 2025-05-31 | Outpatient (CLI) | payer MEDICARE, SELFPAY ==
--- NOTE | 2025-05-31 14:30 | XR_ITS ---
Examination: CT brain head without contrast. 2-D sagittal coronal reconstructions Date and time of exam:May 31, 2025 at 1511 hours, comparison May 26, 2025 INDICATIONS: 15 mm left thalamic hemorrhage on CT brain scan 05/22/2025 CTDI: vol (mGy):52.3 DLP: (mGycm):1078 Technique: Multiple CT axial sections of the brain have been obtained, 5 mm slice thickness. Contrast has not been administered. 2-D sagittal, coronal reconstructions have been obtained Low dose protocols were performed. One or more of the following dose reduction techniques were used; automated exposure control, adjustment of the mA and/or KV according to patient size, use of iterative reconstruction technique. Findings: No significant ventricular enlargement. Minimally less dense hemorrhage in the left thalamus, still measuring 13 mm, with surrounding edema No mass effect or midline shift Basal cisterns are not remarkable. Fourth ventricle is midline. Cranial vault intact. Impression: Minimally less dense hemorrhage in the left thalamus compared to prior studies, no change in size
== END | disposition home or self-care (01) ==
PROVIDERS: PCP Internal Medicine; Referring Provider Psychiatry & Neurology Neurology; Visit Provider Psychiatry & Neurology Neurology
DX: I61.2 Nontraumatic intracerebral hemorrhage in hemisphere, unspecified (principal)
CPT/HCPCS: 70450

== ENCOUNTER → 2025-06-14 | Outpatient (CLI) | payer MEDICARE, SELFPAY ==
--- NOTE | 2025-06-14 | XR_ITS ---
Examination: CT brain head without contrast. 2-D sagittal coronal reconstructions Date and time of exam:June 14, 2025, 1152 hours, 05/22/2025 INDICATIONS: 15 mm left thalamic hemorrhage on CT examination 05/22/2025 CTDI: vol (mGy):53.8 DLP: (mGycm):1146 Technique: Multiple CT axial sections of the brain have been obtained, 5 mm slice thickness. Contrast has not been administered. 2-D sagittal, coronal reconstructions have been obtained Low dose protocols were performed. One or more of the following dose reduction techniques were used; automated exposure control, adjustment of the mA and/or KV according to patient size, use of iterative reconstruction technique. Findings: No significant ventricular enlargement. Left thalamic hemorrhage as almost completely resolved No mass effect or midline shift Basal cisterns are not remarkable. Fourth ventricle is midline. Cranial vault intact. Impression: Left thalamic hemorrhage has almost completely resolved
== END | disposition home or self-care (01) ==
PROVIDERS: PCP Internal Medicine; Referring Provider Psychiatry & Neurology Neurology; Visit Provider Psychiatry & Neurology Neurology
DX: I61.9 Nontraumatic intracerebral hemorrhage, unspecified (principal)
CPT/HCPCS: 70450

== ENCOUNTER → 2025-06-30 | Outpatient (CLI) | payer MEDICARE, SELFPAY ==
[2025-06-30 10:27] LABS: Misc Send Out* See Sep Rpt
[2025-06-30 11:02] LABS: Basophils # (Auto) 0.1 Thou/mm3 (0.0-0.2); Basophils % (Auto) 1 % (0-2.5); Eosinophils # (Auto) 0.2 Thou/mm3 (0.0-0.5); Eosinophils % (Auto) 2 % (0-10); Hematocrit 43.1 % (41.0-53.0); Hemoglobin 14.6 g/dL (13.5-16.0); Immature Granulocytes Auto 0.03 Thou/mm3 (0.00-0.00); Lymphocytes # (Auto) 1.0 Thou/mm3 (1.0-4.8); Lymphocytes % (Auto) 10 % (10-50); Mean Corpuscular HGB Conc 33.9 g/dl (31.0-37.0); Mean Corpuscular Hemoglobin 28.3 pg (25.0-35.0); Mean Corpuscular Volume 84 fL (80-100); Monocytes # (Auto) 0.7 Thou/mm3 (0.0-0.8); Monocytes % (Auto) 7 % (0-12); Neutrophils # (Auto) 7.5 Thou/mm3 (1.8-7.7); Neutrophils % (Auto) 80 % (37-80); Nucleated Red Blood Cell # 0.00 Thou/mm3 (0.00-0.00); Nucleated Red Blood Cell % 0 /100 WBC (0); Platelet Count 291 Thou/mm3 (140-440); RDW Standard Deviation 42.6 fL (35.1-43.9); Red Blood Count 5.15 Miln/mm3 (4.50-5.90); White Blood Count 9.4 Thou/mm3 (3.8-10.6)
[2025-06-30 11:19] LABS: Ferritin 90 ng/mL (10.5-307.3); Folate 10.73 ng/mL (>5.38); Iron 45 mcg/dL (65-175); Percent Iron Saturation 14 % (20-55); Total Iron Binding Capacity 317 mcg/dL (250-425); Unsaturated Iron Binding 272 (225-295); Vitamin B12 360 pg/mL (211-911)
[2025-06-30 11:22] LABS: Glucose Estimated Average 214 mg/dL (80-131); Hemoglobin A1C 9.1 % Hgb (4.8-6.0)
[2025-06-30 11:27] LABS: Alanine Aminotransferase 13 U/L (10-49); Albumin, Serum 4.6 gm/dL (3.4-4.8); Albumin/Globulin Ratio 1.7 (1.2-2.2); Alkaline Phosphatase 68 U/L (46-116); Anion Gap 11 (7-16); Aspartate Amino Transferase 14 U/L (0-34); BUN/Creatinine Ratio 10 Ratio (12-20); Bilirubin,Total 0.5 mg/dL (0.3-1.2); Blood Urea Nitrogen 14 mg/dL (9-23); Calcium 9.9 mg/dL (8.3-10.6); Calcium (Corrected) 9.9 mg/dL (8.5-10.1); Carbon Dioxide 23.8 mMol/L (20.0-31.0); Cardiac Risk Estimate 6.4 RATIO (4.0-6.7); Chloride 104 mMol/L (98-107); Cholesterol 210 mg/dL (132-200); Creatinine (Component) 1.4 mg/dL (0.6-1.3); Globulin 2.7 gm/dL (2.3-3.5); Glucose 248 mg/dL (74-106); HDL Cholesterol 33 mg/dL (40-60); LDL Cholesterol,Calculated 144 mg/dL (0-130); Osmolality,Calculated 286 (275-295); Potassium 4.4 mMol/L (3.4-5.1); Sodium 139 mMol/L (136-145); Thyroid Stimulating Hormone 3.04 uIU/mL (0.55-4.78); Total Protein 7.3 gm/dL (5.7-8.2); Triglycerides 163 mg/dL (30-150); eGFR 51 See Note
== END | disposition home or self-care (01) ==
LOC: COPL 10:04
PROVIDERS: PCP Family Medicine; Referring Provider Nurse Practitioner Family; Visit Provider Nurse Practitioner Family
DX: D64.9 Anemia, unspecified (principal); E11.9 Type 2 diabetes mellitus without complications; I10 Essential (primary) hypertension
CPT/HCPCS: 36415; 80053; 80061; 82607; 82728; 82746; 83036; 83540; 83550; 84443; 85025

== ENCOUNTER → 2025-07-30 | Outpatient (CLI) | payer MEDICARE, SELFPAY ==
[2025-07-30 11:53] LABS: Basophils # (Auto) 0.1 Thou/mm3 (0.0-0.2); Basophils % (Auto) 1 % (0-2.5); Eosinophils # (Auto) 0.1 Thou/mm3 (0.0-0.5); Eosinophils % (Auto) 1 % (0-10); Hematocrit 43.5 % (41.0-53.0); Hemoglobin 14.3 g/dL (13.5-16.0); Immature Granulocytes Auto 0.07 Thou/mm3 (0.00-0.00); Lymphocytes # (Auto) 0.8 Thou/mm3 (1.0-4.8); Lymphocytes % (Auto) 9 % (10-50); Mean Corpuscular HGB Conc 32.9 g/dl (31.0-37.0); Mean Corpuscular Hemoglobin 27.4 pg (25.0-35.0); Mean Corpuscular Volume 84 fL (80-100); Monocytes # (Auto) 0.8 Thou/mm3 (0.0-0.8); Monocytes % (Auto) 8 % (0-12); Neutrophils # (Auto) 8.0 Thou/mm3 (1.8-7.7); Neutrophils % (Auto) 82 % (37-80); Nucleated Red Blood Cell # 0.00 Thou/mm3 (0.00-0.00); Nucleated Red Blood Cell % 0 /100 WBC (0); Platelet Count 425 Thou/mm3 (140-440); RDW Standard Deviation 43.6 fL (35.1-43.9); Red Blood Count 5.21 Miln/mm3 (4.50-5.90); White Blood Count 9.8 Thou/mm3 (3.8-10.6)
[2025-07-30 12:21] LABS: Alanine Aminotransferase 17 U/L (10-49); Albumin, Serum 4.8 gm/dL (3.4-4.8); Albumin/Globulin Ratio 1.8 (1.2-2.2); Alkaline Phosphatase 65 U/L (46-116); Anion Gap 11 (7-16); Aspartate Amino Transferase 18 U/L (0-34); BUN/Creatinine Ratio 13 Ratio (12-20); Bilirubin,Total 0.3 mg/dL (0.3-1.2); Blood Urea Nitrogen 24 mg/dL (9-23); Calcium 9.6 mg/dL (8.3-10.6); Calcium (Corrected) 9.6 mg/dL (8.5-10.1); Carbon Dioxide 25.5 mMol/L (20.0-31.0); Chloride 105 mMol/L (98-107); Creatinine (Component) 1.8 mg/dL (0.6-1.3); Globulin 2.7 gm/dL (2.3-3.5); Glucose 219 mg/dL (74-106); Osmolality,Calculated 292 (275-295); Potassium 4.6 mMol/L (3.4-5.1); Sodium 141 mMol/L (136-145); Total Protein 7.5 gm/dL (5.7-8.2); eGFR 38 See Note
[2025-07-30 12:28] LABS: Iron 25 mcg/dL (65-175); Percent Iron Saturation 8 % (20-55); Total Iron Binding Capacity 278 mcg/dL (250-425); Unsaturated Iron Binding 253 (225-295)
[2025-07-30 14:34] LABS: Glucose Estimated Average 194 mg/dL (80-131); Hemoglobin A1C 8.4 % Hgb (4.8-6.0)
== END | disposition home or self-care (01) ==
LOC: COPL 10:24
PROVIDERS: PCP Family Medicine; Referring Provider Nurse Practitioner Family; Visit Provider Nurse Practitioner Family
DX: N17.9 Acute kidney failure, unspecified (principal); D50.9 Iron deficiency anemia, unspecified; E11.65 Type 2 diabetes mellitus with hyperglycemia
CPT/HCPCS: 36415; 80053; 83036; 83540; 83550; 85025

== ENCOUNTER → 2025-08-30 | Outpatient (CLI) | payer MEDICARE, SELFPAY ==
[2025-08-30 09:16] LABS: Collection Type, Urine Clean Catch; Squamous Epithelial Cell,Urine 0 /hpf (0-5)
[2025-08-30 09:29] LABS: Basophils # (Auto) 0.1 Thou/mm3 (0.0-0.2); Basophils % (Auto) 1 % (0-2.5); Eosinophils # (Auto) 0.2 Thou/mm3 (0.0-0.5); Eosinophils % (Auto) 2 % (0-10); Hematocrit 46.7 % (41.0-53.0); Hemoglobin 14.9 g/dL (13.5-16.0); Immature Granulocytes Auto 0.04 Thou/mm3 (0.00-0.00); Lymphocytes # (Auto) 1.2 Thou/mm3 (1.0-4.8); Lymphocytes % (Auto) 13 % (10-50); Mean Corpuscular HGB Conc 31.9 g/dl (31.0-37.0); Mean Corpuscular Hemoglobin 27.4 pg (25.0-35.0); Mean Corpuscular Volume 86 fL (80-100); Monocytes # (Auto) 0.8 Thou/mm3 (0.0-0.8); Monocytes % (Auto) 8 % (0-12); Neutrophils # (Auto) 6.7 Thou/mm3 (1.8-7.7); Neutrophils % (Auto) 75 % (37-80); Nucleated Red Blood Cell # 0.00 Thou/mm3 (0.00-0.00); Nucleated Red Blood Cell % 0 /100 WBC (0); Platelet Count 318 Thou/mm3 (140-440); RDW Standard Deviation 47.4 fL (35.1-43.9); Red Blood Count 5.44 Miln/mm3 (4.50-5.90); White Blood Count 8.9 Thou/mm3 (3.8-10.6)
[2025-08-30 09:40] LABS: Bacteria,Urine Rare; Bilirubin,Urine Negative (Negative); Blood,Urine Negative (Negative); Clarity,Urine Clear (Clear/Hazy); Color,Urine Lt-Yellow (Lt Yel-Yel); Glucose, Urine Negative (Negative); Ketones,Urine Negative (Negative); Leukocyte Esterase,Urine Negative (Negative); Nitrite,Urine Negative (Negative); PH,Urine 5.5 (5.0-7.0); Protein,Urine Negative (Neg - Trace); RBC,Urine 5 /hpf (0-3); Specific Gravity,Urine 1.022 (1.001-1.035); Urobilinogen,Urine Negative mg/dL (0.0-1.0); WBC,Urine 1 /hpf (0-5)
[2025-08-30 09:48] LABS: Glucose Estimated Average 194 mg/dL (80-131); Hemoglobin A1C 8.4 % Hgb (4.8-6.0)
[2025-08-30 09:51] LABS: Creatinine MALB Rnd Ur 119 mg/dL (30-125); Microalbumin Creat Ratio 13 mg/gCrea (<30); Microalbumin, Random Urine 16 mg/L (0-300)
[2025-08-30 12:16] LABS: Alanine Aminotransferase 23 U/L (10-49); Albumin, Serum 4.5 gm/dL (3.4-4.8); Albumin/Globulin Ratio 1.5 (1.2-2.2); Alkaline Phosphatase 65 U/L (46-116); Anion Gap 11 (7-16); Aspartate Amino Transferase 24 U/L (0-34); BUN/Creatinine Ratio 16 Ratio (12-20); Bilirubin,Total 0.3 mg/dL (0.3-1.2); Blood Urea Nitrogen 29 mg/dL (9-23); Calcium 9.2 mg/dL (8.3-10.6); Calcium (Corrected) 9.2 mg/dL (8.5-10.1); Carbon Dioxide 24.4 mMol/L (20.0-31.0); Cardiac Risk Estimate 3.3 RATIO (4.0-6.7); Chloride 108 mMol/L (98-107); Cholesterol 132 mg/dL (132-200); Creatinine (Component) 1.8 mg/dL (0.6-1.3); Globulin 3.0 gm/dL (2.3-3.5); Glucose 171 mg/dL (74-106); HDL Cholesterol 40 mg/dL (40-60); LDL Cholesterol,Calculated 72 mg/dL (0-130); Osmolality,Calculated 294 (275-295); Phosphorous 3.5 mg/dL (2.4-5.1); Potassium 4.5 mMol/L (3.4-5.1); Sodium 143 mMol/L (136-145); Thyroid Stimulating Hormone 20.39 uIU/mL (0.55-4.78); Total Protein 7.5 gm/dL (5.7-8.2); Triglycerides 101 mg/dL (30-150); eGFR 38 See Note
[2025-08-30 13:05] LABS: Parathyroid Hormone Intact 66.4 pg/ml (18.5-88.0)
== END | disposition home or self-care (01) ==
LOC: COPL 08:41
PROVIDERS: PCP Family Medicine; Referring Provider Internal Medicine; Visit Provider Student in an Organized Health Care Education/Training Program
DX: I10 Essential (primary) hypertension (principal); E11.65 Type 2 diabetes mellitus with hyperglycemia; E78.5 Hyperlipidemia, unspecified; N17.9 Acute kidney failure, unspecified
CPT/HCPCS: 36415; 80053; 80061; 81001; 82043; 82570; 83036; 83970; 84100; 84443; 85025